=== PATIENT | male | born 1955 | race Two or more races ===

== ENCOUNTER 2022-07-17 07:16 | Day surgery (SDC) | payer OTHER ==
[~2022-07-17] VITALS: Ht 175.3 cm; Wt 108.4 kg
[~2022-07-17 07:16] MED LIST: LISI2.5T47 PO
[2022-07-17] MEDS ORDERED: ceFAZolin 1GM/50ML 100 ML IV ONE (07:33)
[2022-07-17] MEDS ORDERED: fentaNYL CITRATE 100 MCG/2 ML VL ONE (07:40)
[2022-07-17] MEDS ORDERED: DexAMETHasone SOD PHOS 10MG/1ML VIAL INJ ONE (07:41)
[2022-07-17] MEDS ORDERED: MIDAZOLAM HCL 2MG/2ML 2ml VIAL (1mg/ml) ONE (07:41)
[2022-07-17] MEDS ORDERED: SODIUM CHLORIDE LOCK 10 ML ONE (07:41)
[2022-07-17] MEDS ORDERED: PROPOFOL 10 MG/ML 20 ML IV ONE (07:41)
[2022-07-17] MEDS ORDERED: MORPHINE SULFATE 4 MG/ML SYR/VIAL IV PRN (07:45)
[2022-07-17] MEDS ORDERED: KETOROLAC TROMETH 30 MG/ML 1ML VIAL IV ONE (07:45)
[2022-07-17] MEDS ORDERED: HYDROmorphone HCL 2 MG/ML VL/or syr IV PRN ×2 (07:45)
[2022-07-17] MEDS ORDERED: METOCLOPRAMIDE HCL 5MG/ml INJ 2ml VIAL IV PRN (07:45)
[2022-07-17] MEDS ORDERED: LIDOCAINE 1% (LOCAL ANESTH.) PF 5ml SDV ONE ×2 (08:08→08:24)
[2022-07-17] MEDS ORDERED: DexAMETHasone SOD PHOS 4 MG/1ML SDV INJ ONE (08:09)
[2022-07-17] MEDS ORDERED: BUPIVACAINE 0.5% P/F INJ 10 ML VIAL ONE (08:09)
[2022-07-17] MEDS ORDERED: LIDOCAINE 4MG/ML IV SOLN 500 ML IV ONE (08:45)
[2022-07-17] MEDS ORDERED: LIDOCAINE 2% (LOCAL ANESTH.) PF 5ml SDV ONE (08:46)
[2022-07-17 10:51] VITALS: BP 132/93
== END 2022-07-17 11:08 | disposition home or self-care (01) ==
LOC: SUR 07:16
PROVIDERS: ATTEND Podiatrist Foot & Ankle Surgery
DX: M20.11 Hallux valgus (acquired), right foot (principal)
CPT/HCPCS: 28750; 73620; 73630; 76000; C1713; J0690; J1100; J1170; J2001; J2250; J2704; J3010; J3490; U0003

== ENCOUNTER 2024-01-01 07:25 | Inpatient (IN) | payer OTHER, MEDICAID ==
[~2024-01-01] VITALS: Ht 175.3 cm; Wt 129.3 kg
[~2024-01-01 07:25] MED LIST changes: +AML5T PO; +ASPI-543 PO; +CYCL-839 PO; +DEXA2TAB PO; +GABA-1250 PO; +HYDR-4902 PO; +IBUP200C3 PO; +LORA-622 PO; +METF-370 PO; +MORP30TA PO; +PRE1T PO; +SULF400T11 PO
[2024-01-01] MEDS ORDERED: D5W/SOD CHLO 0.9% 1,000 ML IV SCH (11:15)
[2024-01-01] MEDS ORDERED: ONDANSETRON HCL 4 MG/2 ML VIAL IV PRN (11:15)
[2024-01-01] MEDS ORDERED: DOCUSATE SOD 100 MG CAP PO PRN (11:15)
[2024-01-01] MEDS ORDERED: NITROGLYCERIN 0.4 MG SL TAB SL PRN (11:15)
[2024-01-01] MEDS ORDERED: MORPHINE SULFATE INJ 2 MG/ml SYRG IV PRN (11:15)
[2024-01-01] MEDS ORDERED: HYDROcodone-ACET 10/325MG TAB PO PRN (11:15)
[2024-01-01] MEDS ORDERED: MILK OF MAGNESIA 30ML SUSP PO PRN (11:15)
[2024-01-01] MEDS ORDERED: ACETAMINOPHEN 325 MG TAB PO PRN (11:15)
[2024-01-01] MEDS ORDERED: ceFAZolin 2 GM/D5W50ml 50 ML IV ONE (12:00)
[2024-01-01] MEDS ORDERED: KETAMINE 50mg/ML 1ml syringe ONE (15:05)
[2024-01-01] MEDS ORDERED: ONDANSETRON HCL 4 MG/2 ML VIAL ONE (15:06)
[2024-01-01] MEDS ORDERED: ROCURONIUM 10MG/ML 10ML VIAL IV ONE (15:06)
[2024-01-01] MEDS ORDERED: LIDOCAINE HCL 2% TOP JELLY 5ML TOP ONE (15:06)
[2024-01-01] MEDS ORDERED: LIDOCAINE 1% INJ PF 5ML AMP ONE (15:06)
[2024-01-01] MEDS ORDERED: MIDAZOLAM HCL 2MG/2ML 2ml VIAL (1mg/ml) ONE (15:06)
[2024-01-01] MEDS ORDERED: MEPERIDINE HCL (50 MG/ML) 1 ML VIAL ONE (15:06)
[2024-01-01] MEDS ORDERED: PROPOFOL 10 MG/ML 20 ML IV ONE (15:06)
[2024-01-01] MEDS ORDERED: fentaNYL CITRATE 100 MCG/2 ML VL ONE (15:06)
[2024-01-01] MEDS ORDERED: HYDROmorphone HCL 2 MG/ML VL/or syr IV PRN ×2 (15:30)
[2024-01-01] MEDS ORDERED: MORPHINE SULFATE 4 MG/ML SYR/VIAL IV PRN (15:30)
[2024-01-01] MEDS ORDERED: METOCLOPRAMIDE HCL 5MG/ml INJ 2ml VIAL IV ONE (15:30)
[2024-01-01] MEDS: IOHEXOL 300 MG/ML 100ML BOTTLE IJ ONE (17:11)
[2024-01-01 17:39] VITALS: PULSE 67; RESP 11; TEMP 97.9; O2SAT 100
[2024-01-01 17:55] VITALS: PULSE 77; RESP 13; O2SAT 98
[2024-01-01] MEDS: KETOROLAC TROMETH 30 MG/ML 1ML VIAL IV ONE (18:15)
[2024-01-01 18:25] VITALS: BP 131/92; PULSE 77; RESP 15; O2SAT 95
[2024-01-01] MEDS ORDERED: DOCUSATE SOD 100 MG CAP PO SCH (22:00)
== END 2024-01-01 21:00 | disposition home or self-care (01) | DRG 517 ==
LOC: SUR 07:25 → OVERFLOW 11:14
PROVIDERS: ADMIT Orthopaedic Surgery; ATTEND Orthopaedic Surgery
PROC: 0QU03JZ Supplement Lumbar Vertebra with Synthetic Substitute, Percutaneous Approach (ICD-10-PCS; 2024-01-01)
PROC: 0QS03ZZ Reposition Lumbar Vertebra, Percutaneous Approach (ICD-10-PCS; principal; 2024-01-01 16:13)
DX: M48.56XA Collapsed vertebra, not elsewhere classified, lumbar region, initial encounter for fracture (principal)
CPT/HCPCS: 72100; 76000; 86850; 86900; 86901; G0378; J1885; J2250; J2405; J2704

== ENCOUNTER 2024-10-03 12:45 | Inpatient (IN) | payer OTHER, MEDICAID ==
[~2024-10-03] VITALS: Ht 175.3 cm; Wt 121.0 kg
--- NOTE | 2024-10-03 13:18 | ED.PDOC ---
History of Present Illness HPI Comments 69M presents to the ER in a wheelchair and w/ prior Hx of Mult. Myeloma, recent Spine Sx which all may be associated to the c/c of SOB. Pt reports on having SOB for 1 week as well as having back pain from the T12 operation. Pt notes that he is unable to walk. Pt BP in triage was 107/66. PMHx of HTN and Pre-DM. SHx of Brain Sx and ACL repair. Denies chills, fever, N/V/D, CP or other associated symptom's, modifiers, or recent injuries or sick contact at this time. Chief Complaint: Shortness of Breath Time Seen by MD: 13:00 Primary Care Provider: bandar Reviewed Notes: Nurses Notes, Medications, Allergies Allergies: Coded Allergies: NO KNOWN ALLERGIES (Unverified , 07/16/22) Home Meds Reported Medications Prednisone (PREDNISONE) Unknown Strength Tb, PO DAILY, #360 TAB 3 Refills 12/30/23 Morphine Sulfate (Morphine Sulfate) Unknown Strength Tab, PO, TAB 12/30/23 Metformin Hydrochloride (Metformin Hcl) Unknown Strength Tab, PO IBID for 30 Days, MG 12/30/23 Ibuprofen (Ibuprofen) Unknown Strength Cap, PO, MG 12/30/23 Hydrocodone-Acetaminophen (Hydrocodone Bitartrate/AC 5-325 mg) Unknown Strength Tab, PO, TAB 12/30/23 Gabapentin (Gabapentin) Unknown Strength Cap, PO for 30 Days, MG 12/30/23 Dexamethasone (Dexamethasone) Unknown Strength Tab, PO, MG 12/30/23 Cyclobenzaprine Hcl (Cyclobenzaprine Hcl) Unknown Strength Tab, PO Q8HP for 30 Days, MG 12/30/23 Loratadine (Claritin) Unknown Strength Tab, PO DAILY, #30 TAB 5 Refills 12/30/23 Aspirin (Aspir-Low) 81 Mg Tab, 81 MG PO DAILY for 30 Days, MG 12/30/23 Sulfamethoxazole-Trimethoprim (Bactrim) 1 Tab Tab, 1 TAB PO DAILY, MG 12/30/23 Amlodipine Besylate (NORVASC TABLET) Unknown Strength Tb, PO DAILY, #30 TAB 5 Refills 12/30/23 Lisinopril (Lisinopril) 2.5 Mg Tab, 2.5 MG PO DAILY, TAB 07/16/22 Information Source: Patient Mode of Arrival: Wheelchair Severity: Moderate Timing: Days Duration: Since onset, Days Prehospital treatment: None Past Medical History PAST MEDICAL HISTORY: HTN Past Medical History (Other): Mult. Myeloma, pre-DM Surgical History (Other): Brain Sx, L-spine Sx and ACL repair Family History Family History: Reviewed,noncontributory to illness, Unknown Social History Smoker: Non-Smoker Alcohol: Denies ETOH Use Drugs: Denies Drug Use Lives In: Home Constitutional: denies: chills, diaphoresis, fatigue, fever, malaise, sweats, weakness, others EENTM: denies: blurred vision, double vision, ear bleeding, ear discharge, ear drainage, ear pain, ear ringing, eye pain, eye redness, hearing loss, mouth pain, mouth swelling, nasal discharge, nose bleeding, nose congestion, nose pain, photophobia, tearing, throat pain, throat swelling, voice changes, others Respiratory: reports: shortness of breath; denies: cough, hemoptysis, orthopnea, SOB at rest, SOB with excertion, stridor, wheezing, others Cardiovascular: denies: chest pain, dizzy spells, diaphoresis, Dyspnea on exertion, edema, irregular heart beat, left arm pain, lightheadedness, palpitations, PND, syncope, others Gastrointestinal: denies: abdomen distended, abdominal pain, blood streaked bowels, constipated, diarrhea, dysphagia, difficulty swallowing, hematemesis, melena, nausea, poor appetite, poor fluid intake, rectal bleeding, rectal pain, vomiting, others Genitourinary: denies: burning, dysuria, flank pain, frequency, hematuria, incontinence, penile discharge, penile sore, pain, testicle pain, testicle swelling, urgency, others Neurological: denies: dizziness, fainting, headache, left sided numbness, left sided weakness, numbness, paresthesia, pre-existing deficit, right sided numbness, right sided weakness, seizure, speech problems, tingling, tremors, we akness, others Musculoskeletal: reports: back pain; denies: gout, joint pain, joint swelling, muscle pain, muscle stiffness, neck pain, others Integumetry: denies: bruises, change in color, change in hair/nails, dryness, laceration, lesions, lumps, rash, wounds, others Allergic/Immunocompromised: denies: Difficulty Healing, Frequent Infections, Hives, Itching, others Hematologic/Lymphatic: denies: anemia, blood clots, easy bleeding, easy bruising, swollen glands, others Endocrine: denies: excessive hunger, excessive sweating, excessive thirst, excessive urination, flushing, intolerance to cold, intolerance to heat, unexplained weight gain, unexplained weight loss, others Psychiatric: denies: anxiety, bipolar disorder, depression, hopeless, panic disorder, schizophrenia, sleepless, suicidal, others All Other Systems: Reviewed and Negative Physical Exam General Appearance: Moderate Distress, Normal HEENT: Normal ENT Inspection, Pharynx Normal, TMs Normal Neck: Full Range of Motion, Non-Tender, Normal, Normal Inspection Respiratory: Chest Non-Tender, Lungs Clear, No Accessory Muscle Use, No Respiratory Distress, Normal Breath Sounds Cardiovascular: No Edema, No JVD, No Murmur, No Gallop, Normal Peripheral Pulses, Regular Rate/Rhythm Breast Exam: Deferred Gastrointestinal: No Organomegaly, Non Tender, No Pulsatile Mass, Normal Bowel Sounds, Soft Genitalia: Deferred Pelvic: Deferred Rectal: Deferred Extremities: No calf tenderness, Normal capillary refill, Normal range of motion, Non-tender, No pedal edema Musculoskeletal : Apperance: Normal Neurologic: Alert Cerebellar Function: NOT DONE Reflexes: NOT DONE Skin: Dry, Normal Color, Warm Peripheral Pulses: 3+ Radial (R), 3+ Radial (L) Lymphatic: No Adenopathy Was a procedure done? Was a procedure done?: No Differential Dx Considerations may include: Multiple myeloma Electrolyte imbalance X-Ray, Labs, Meds, VS Vital Signs Date Time Temp Pulse Resp B/P (MAP) Pulse Ox O2 Delivery O2 Flow Rate FiO2 10/03/24 13:00 19 95 Room Air* 0 21 10/03/24 12:56 97.0 68 19 107/66 (80) 95 Patient alert. Unable to ambulate. Has a history of multiple myeloma. Vitals stable. Patient states that he can not take care himself. Recent fracture. He is wearing a brace. Unable to put weight on his extremities. Will need placement. Explained to the patient. Continue cardiac monitoring. Time of 1ST Reevaluation: 13:30 Reevaluation 1ST: Unchanged Patient Education/Counseling: Diagnosis, Treatment, Prognosis Family Education/Counseling: No Family Present Departure 1 Departure Time of Disposition: 13:31 Impression: Primary Impression: Multiple myeloma Qualified Codes: C90.00 - Multiple myeloma not having achieved remission Disposition: ADMITTED INPATIENT Admit to: Med Surg Condition: Guarded Critical Care Note Critical Care Time?: No Stability Stability form required: No Heart Score Heart Score: Heart Score Response (Comments) Value History N/A 0 EKG N/A 0 Age N/A 0 Risk Factors N/A 0 Troponin N/A 0 Total 0 I personally scribed for MELLISSA GUNN MD ([email or web address]) on 10/03/24 at 13:18. Electronically submitted by Luis Eduardo Velazquez ([email or web address]). MELLISSA GUNN MD Oct 03, 2024 13:18
[2024-10-03 13:52] LABS: Hematocrit 40.1 % (41.0-53.0); Hemoglobin 13.4 g/dL (13.5-17.5); Mean Corpuscular Hemoglobin 33.1 pg (28.0-32.0); Mean Corpuscular Hgb Conc. 33.5 g/dL (32.0-36.0); Mean Corpuscular Volume 98.9 fL (80.0-100.0); Platelet Count (auto) 132 10^3/uL (140-450); Red Blood Cells 4.06 10^6/uL (4.5-5.90); Red Cell Distribution Width 16.1 % (11.8-14.3); White Blood Cell 7.1 10^3/uL (4.4-10.8)
[2024-10-03 13:54] LABS: Potassium 4.1 mmol/L (3.5-5.1)
[2024-10-03 13:55] LABS: Anion Gap 7 (5-15); Carbon Dioxide 28 mmol/L (20-31)
[2024-10-03 13:56] LABS: Basophils % (manual) 0 (0.0-2.0); Blast Cells 0; Calcium 8.9 mg/dL (8.7-10.4); Metamyelocytes % 0; Myelocytes % 0; Promyelocytes % 0; Reactive Lymphocytes 0
[2024-10-03 14:01] LABS: BUN/Creatinine Ratio 28.1 (10.0-20.0); Blood Urea Nitrogen 18 mg/dL (9-23)
[2024-10-03 14:03] LABS: Chloride 95 mmol/L (98-107); Glucose 130 mg/dL (74-106); Sodium 130 mmol/L (136-145)
[2024-10-03 14:56] LABS: Band Neutrophils % (manual) 8; Eosinophils % (manual) 5 (0-7); Lymphocytes % (manual) 8 (10.0-50.0); Monocytes % (manual) 6 (0-12); Platelet Estimate Decreased
[2024-10-03 21:08] LABS: Hemoglobin 14.1 g/dL (13.5-17.5); White Blood Cell 8.3 10^3/uL (4.4-10.8)
--- NOTE | 2024-10-03 21:12 | DVH ---
CHEST RADIOGRAPH Indication: disable Technique: Single frontal view of the chest was obtained Comparison: None FINDINGS: Lines and Tubes: None Lungs: Patchy opacities of the right hemithorax and left lower lung zone. Which appear to be projecte d over the costochondral junction may represent costochondral calcification Pleura: No effusion. No pneumothorax. Cardiomediastinal contours: Unremarkable Bones: No acute osseous abnormality. IMPRESSION: No evidence of acute cardiopulmonary disease.
--- NOTE | 2024-10-03 21:17 | DVH ---
EXAM: CT LS SPINE WO CONTRAST HISTORY: failed back syn COMPARISON: None CTDIvol 36.46 mGy, DLP 2572.36 mGy*cm. TECHNIQUE: Multiple axial CT images of the spine were obtained using bone algorithm. Axial and coron al reformatting was done. Bone and soft tissue windows were reviewed. FINDINGS: Bones appear osteoporotic. S/p kypoplasty of prior compression fractures of the L2, L3, and L5 verteb ral bodies. There is an age-indeterminate compression fracture of the T12 vertebral body with severe loss of vertebral body height centrally and up to 9 mm retropulsion of the posterior cortex. This res ults in severe spinal canal stenosis at the T12 level with presumed compression of the thecal sac/low er thoracic spinal cord/conus. Mild lumbar spondylosis with mild spinal canal narrowing at L4-L5. IMPRESSION: Bones appear osteoporotic. S/p kypoplasty of prior compression fractures of the L2, L3, and L5 verteb ral bodies. Age-indeterminate compression fracture of T12 vertebral body with severe loss of vertebral body heigh t centrally and up to 9 mm retropulsion of the posterior cortex. This results in severe spinal canal stenosis at the T12 level with presumed compression of the thecal sac/lower thoracic spinal cord/conu s. This can be further evaluate with MRI as clinically indicated.
--- NOTE | 2024-10-03 21:21 | DVH ---
EXAM: CT THORACIC SPINE WO CONTRAS HISTORY: failed surgery COMPARISON: None CTDIvol mGy, DLP mGy*cm. TECHNIQUE: Multiple axial CT images of the spine were obtained using bone algorithm. Axial and coron al reformatting was done. Bone and soft tissue windows were reviewed. FINDINGS: Bones appear osteoporotic. There is an age-indeterminate compression fracture of the T12 vertebral garth dy with severe loss of vertebral body height centrally and up to 9 mm retropulsion of the posterior c ortex. This results in severe spinal canal stenosis at the T12 level with presumed compression of the thecal sac/lower thoracic spinal cord/conus. The remainder of the levels in the thoracic spine demonstrate no spinal canal or neural foraminal yenni nosis. Old/healed posterior rib fractures noted. IMPRESSION: 1. Bones appear osteoporotic. Age-indeterminate compression fracture of T12 vertebral body with sever e loss of vertebral body height centrally and up to 9 mm retropulsion of the posterior cortex. This r esults in severe spinal canal stenosis at the T12 level with presumed compression of the thecal sac/l ower thoracic spinal cord/conus. This can be further evaluated with MRI as clinically indicated.
[2024-10-03 21:23] LABS: Mean Corpuscular Hemoglobin 33.2 pg (28.0-32.0); Mean Corpuscular Hgb Conc. 33.6 g/dL (32.0-36.0); Mean Corpuscular Volume 98.9 fL (80.0-100.0); Platelet Count (auto) 143 10^3/uL (140-450); Red Blood Cells 4.25 10^6/uL (4.5-5.90); Red Cell Distribution Width 16.8 % (11.8-14.3)
[2024-10-03 21:24] LABS: Albumin 4.1 g/dL (3.2-4.8); Anion Gap 8 (5-15); BUN/Creatinine Ratio 23.4 (10.0-20.0); Bilirubin, Total 0.7 mg/dL (0.2-1.0); Blood Urea Nitrogen 18 mg/dL (9-23); Carbon Dioxide 27 mmol/L (20-31); Potassium 4.2 mmol/L (3.5-5.1); Total Protein 5.7 g/dL (5.7-8.2)
[2024-10-03 21:25] LABS: Alanine Aminotransferase 129 U/L (7-40); Alkaline Phosphatase 167 U/L (46-116); Aspartate Aminotransferase 42 U/L (13-40); Chloride 95 mmol/L (98-107); Glucose 157 mg/dL (74-106); Sodium 130 mmol/L (136-145)
[2024-10-03 21:28] LABS: Basophils % (manual) 0 (0.0-2.0); Blast Cells 0; Metamyelocytes % 0; Myelocytes % 0; Promyelocytes % 0
[2024-10-03 21:57] LABS: Band Neutrophils % (manual) 12; Eosinophils % (manual) 3 (0-7); Lymphocytes % (manual) 8 (10.0-50.0); Monocytes % (manual) 9 (0-12); Reactive Lymphocytes 1
[2024-10-03 21:58] LABS: Large Platelets FEW; Platelet Estimate Adequate
[2024-10-04 01:33] VITALS: PULSE 101; RESP 25; O2SAT 98
[2024-10-04 04:15] LABS: Urine Bacteria None Seen /hpf (None Seen)
[2024-10-04 04:58] LABS: Urine Blood Negative /uL (Negative); Urine Clarity Clear (Clear); Urine Color Yellow (Yellow); Urine Protein, UAD Negative (Negative); Urine Specific Gravity 1.025 (1.001-1.035); Urine Squamous Epithelial Cell None Seen /hpf (<5); Urine Urobilinogen Normal (Negative); Urine WBC 1 /HPF (0-3); Urine pH 5.5 (5.0-9.0)
--- NOTE | 2024-10-04 06:12 | ECG ---
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
[2024-10-04] MEDS ORDERED: ONDANSETRON HCL 4 MG/2 ML VIAL IV PRN (07:15)
[2024-10-04] MEDS ORDERED: HYDROcodone-ACET 5/325MG TAB PO PRN (07:15)
[2024-10-04] MEDS ORDERED: DOCUSATE SOD 100 MG CAP PO PRN (07:15)
[2024-10-04] MEDS ORDERED: MORPHINE SULFATE INJ 2 MG/ml SYRG IV PRN (07:15)
[2024-10-04] MEDS: SODIUM CHLORIDE 0.9% 1,000 ML IV SCH (07:15)
[2024-10-04] MEDS ORDERED: ACETAMINOPHEN 325 MG TAB PO PRN (07:15)
[2024-10-04] MEDS ORDERED: NITROGLYCERIN 0.4 MG SL TAB SL PRN (07:15)
[2024-10-04 08:00] VITALS: PULSE 95; RESP 18; O2SAT 94
[2024-10-04] MEDS: ZINC SULFATE 220mg CAP or TAB PO SCH (10:57)
[2024-10-04] MEDS: ASCORBIC ACID 500 MG TAB PO SCH (10:57)
[2024-10-04] MEDS: ENOXAPARIN SOD 30 MG/0.3 ML SYRINGE SC SCH (10:58)
--- NOTE | 2024-10-04 12:32 | DVHHP2 ---
History of Present Illness Reason for Visit: Shortness of breadth 10 low back pain. History of Present Illness 69-year-old male with a known history of hypertension, prediabetes mellitus, history of brain hematoma surgery in the past, multiple myeloma currently on injury chemotherapy once a week, previous history of L2-3 five lumbar, patient fracture status post kyphoplasty presented to the hospital with low back pain associated with shortness of breath. Patient was tolerated having back pain for the last few days. Patient was stated that he has numbness in the lower extremi ties. Patient was also complaining of weakness in the bilateral lower extremities. 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 Bilateral bunionectomy,Intracranial hematoma status post drainage) Family History: None Smoke: No ALCOHOL: none Drugs: None Review of Systems Review of Systems Twelve review of system were negative except mentioned above. Allergies: Coded Allergies: NO KNOWN ALLERGIES (Unverified , 07/16/22) Medications Current Medications Medications Dose Ordered Sig/Jonathan Route Start Time Stop Time Status Last Admin Dose Admin Sodium Chloride 1,000 ml @ 60 mls/hr [id number] IV 10/04/24 07:15 10/04/24 07:15 60 MLS/HR Acetaminophen 325 mg Q4HP PRN PO 10/04/24 07:15 Acetaminophen/ Hydrocodone Bitart 1 tab Q4HP PRN PO 10/04/24 07:15 Temazepam 15 mg QHSP PRN PO 10/04/24 07:15 Ondansetron HCl 4 mg Q4HP PRN IV 10/04/24 07:15 Docusate Sodium 100 mg BIDPRN PRN PO 10/04/24 07:15 Zinc Sulfate 220 mg DAILY PO 10/04/24 10:00 10/04/24 10:57 220 MG Ascorbic Acid 500 mg BID PO 10/04/24 10:00 10/04/24 10:57 500 MG Enoxaparin Sodium 30 mg DAILY SC 10/04/24 10:00 10/04/24 10:58 30 MG Nitroglycerin 0.4 mg Q5MINP PRN SL 10/04/24 07:15 Morphine Sulfate 2 mg Q30M PRN IV 10/04/24 07:15 Exam Vital Signs Vital Signs Date Time Temp Pulse Resp B/P (MAP) Pulse Ox O2 Delivery O2 Flow Rate FiO2 10/04/24 08:00 98.3 92 18 101/65 (77) 94 98.3 10/04/24 01:33 Nasal Cannula* 2 28 Exam HEENT pupils are reactive Neck is supple CV is S1-S2 regular rate and rhythm Respiratory viral clear GI posterior bowel sound Extremity no edema [employer]ER bilateral lower extremity weakness Labs/Xrays Labs Test 10/04/24 02:39 10/03/24 21:50 10/03/24 20:55 Range/Units Urine Color Yellow Yellow Urine Clarity Clear Clear Urine pH 5.5 5.0-9.0 Urine Specific [place] 1.025 1.001-1.035 Urine Protein Negative Negative Urine Ketones Negative Negative Urine Blood Negative Negative /uL Urine Nitrite Negative Negative Urine Bilirubin Negative Negative Urine Urobilinogen Normal Negative mg/dL Urine Leukocyte Esterase Negative Negative /uL Urine RBC <1 0 - 3 /hpf Urine Microscopic WBC 1 0-3 /HPF Urine Squamous Epithelial Cells None seen <5 /hpf Urine Bacteria None seen None Seen /hpf Urine Glucose Normal Normal mg/dL Troponin I High Sensitivity < 3 L </=54 ng/L White Blood Count 8.3 4.4-10.8 10^3/uL Red Blood Count 4.25 L 4.5-5.90 10^6/uL Hemoglobin 14.1 13.5-17.5 g/dL Hematocrit 42.0 41.0-53.0 % Mean Corpuscular Volume 98.9 80.0-100.0 fL Mean Corpuscular Hemoglobin 33.2 H 28.0-32.0 pg Mean Corpuscular Hemoglobin Concent 33.6 32.0-36.0 g/dL Red Cell Distribution Width 16.8 H 11.8-14.3 % Platelet Count 143 140-450 10^3/uL Mean Platelet Volume 8.9 6.9-10.8 fL Neutrophils (%) (Auto) 37.0-80.0 % Lymphocytes (%) (Auto) 10.0-50.0 % Monocytes (%) (Auto) 0.0-12.0 % Basophils (%) (Auto) 0.0-2.0 % Neutrophils # (Auto) 1.6-8.6 10 ^3/uL Lymphocytes # (Auto) 0.4-5.4 10 ^3/uL Monocytes # (Auto) 0-1.3 10 ^3/uL Differential Total Cells Counted 100.0 100 Neutrophils % (Manual) 67 37.0-80.0 Band Neutrophils % (Manual) 12 Lymphocytes % (Manual) 8 L 10.0-50.0 Monocytes % (Manual) 9 0-12 Eosinophils % (Manual) 3 0-7 Basophils % (Manual) 0 0.0-2.0 Metamyelocytes % (manual) 0 Myelocytes % (Manual) 0 Promyelocytes % (Manual) 0 Blast Cells % (Manual) 0 Reactive Lymphocytes 1 Platelet Estimate Adequate Large Platelets Few Sodium Level 130 L 136-145 mmol/L Potassium Level 4.2 3.5-5.1 mmol/L Chloride Level 95 L 98-107 mmol/L Carbon Dioxide Level 27 20-31 mmol/L Anion Gap 8 5-15 Blood Urea Nitrogen 18 9-23 mg/dL Creatinine 0.77 0.700-1.30 mg/dL Glomerular Filtration Rate Calc 98 >90 mL/min BUN/Creatinine Ratio 23.4 H 10.0-20.0 Serum Glucose 157 H 74-106 mg/dL Calcium Level 9.0 8.7-10.4 mg/dL Total Bilirubin 0.7 0.2-1.0 mg/dL Aspartate Amino Transferase (AST) 42 H 13-40 U/L Alanine Aminotransferase (ALT) 129 H 7-40 U/L Alkaline Phosphatase 167 H 46-116 U/L Total Protein 5.7 5.7-8.2 g/dL Albumin 4.1 3.2-4.8 g/dL Assessment/Plan Assessment/Plan 69-year-old male with a known history of hypertension, pre diabetes mellitus type 2, history of intracranial/subdural hematoma status post drainage in the past, multiple myeloma currently on chemotherapy, previous history of lumbar spine kyphoplasty at L2-3 five last year presented to the hospital with a bilat eral lower extremity weakness found to have 1. Bilateral lower extremity weakness suspect lumbar radiculopathy/myelopathy 2. Previous history of L2-3 five kyphoplasty 3. Hypotension 4. Diabetes mellitus type 2 5. Multiple myeloma currently on chemotherapy -admit to med surge, 2D echo cardiology clearance, spine surgery has been consulted by ER physician, recommending spine surgery intervention. Plan of care discussed with the patient was who understand, verbalized understanding and agreeable to plan. Plan discussed with: Patient My Orders Orders - GIOVANNI BURKS MD Procedure Category Date Status Time Admit ADMIT 10/04/24 Verified 12:17 Date of Service: Oct 04, 2024 Billing Provider: GIOVANNI BURKS MD Common Visit Codes: NOT BILLABLE GIOVANNI BURKS MD Oct 04, 2024 12:31
--- NOTE | 2024-10-04 17:52 | DVHSR ---
APPROVED REPORT EXAM: Two-dimensional and M-mode echocardiogram with Doppler and color Doppler. Blood Pressure: 92/54 mmHg INDICATION Preop clearance for lumbar spine surgery RISK FACTORS Obesity: Height: 5'9", Weight: 272 DIMENSIONS LVDd4.9 (3.8-5.7cm)LA (2D)4.1 (1.9-4.0cm)Aortic Root3.9 (2.0-3.7cm) LVDs3.3 (2.5-4.0cm)LA (MM) (1.9-4.0cm)Aortic Cusp Exc2.1 (1.5-2.0cm) EF (%) 60.0 (55-70%)Rt. Atrium4.0 (1.9-4.0cm)Asc. Aorta cm IVSd1.4 (0.7-1.1cm)RV (D) (1.8-2.4cm) PWd1.3 (0.7-1.1cm) Mitral Valve MitralMitral Stenosis E wave0.74m/sMV Mean GR.mmHg A wave0.89m/sMV Peak GR.mmHg E/A ratio0.82D MVAcm2 DECEL [id number] 1/2 Timems Aortic Valve Aortic ValveAortic Stenosis V11.24m/Nichelle Mean GR.7mmHg V21.97m/Nichelle Peak GR.16mmHg LVOT Diameter2.3 (1.8-2.4cm)Doppler AVA2.61cm2 Pulmonic Valve V21.35m/s Other Information Technically limited study due to body habitus. Conclusion lvef 60% by visual estimate moderate RV enlarged, normal function normal atria no severe valve abnormaliteis noted
[2024-10-04] MEDS: SULFAMETHOX W/TRIMETH(800/160MG) DS TAB PO SCH (18:00)
[2024-10-04 19:30] VITALS: PULSE 93; RESP 15; O2SAT 92
[2024-10-04] MEDS: TEMAZEPAM 15 MG CAP PO PRN (21:10)
[2024-10-05] VITALS (10 sets, daily range): BP systolic 112–136; BP diastolic 63–74; PULSE 75–109; RESP 9–18; TEMP 97.6–98.2; O2SAT 54–99
--- NOTE | 2024-10-05 08:22 | DVHINCON2 ---
Consultation - Spinal Surgery Date Seen: Oct 05, 2024 History of Present Illness History of Present Illness THis is a pleasant but unfortunate patient that I have been taking care of. he has a history of multiple myeloma that I performed a multi level kyphoplasties last year which greatly improved his function and pain. Over that time, he sustained another fracture ; this time at the thoracic 12 level . The retropulsion of the vertebral body has resultedin severe canal stenosis and cord signal changes consistent with spinal cord damage and myelopathy in addition to pain, he is having severe balance trouble and has a very unsteady gait. I started the process to get him set up for surgery but the pain and balance trouble was so severe that he was unable to tolerate the suffering and was [facility] The progressive weakness/neurologic deficit is concerning to the point that having to perform surgery is important. Allergies and medications Allergies: Coded Allergies: NO KNOWN ALLERGIES (Unverified , 07/16/22) Home Meds Reported Medications Prednisone (PREDNISONE) Unknown Strength Tb, PO DAILY, #360 TAB 3 Refills 12/30/23 Morphine Sulfate (Morphine Sulfate) Unknown Strength Tab, PO, TAB 12/30/23 Metformin Hydrochloride (Metformin Hcl) Unknown Strength Tab, PO IBID for 30 Days, MG 12/30/23 Ibuprofen (Ibuprofen) Unknown Strength Cap, PO, MG 12/30/23 Hydrocodone-Acetaminophen (Hydrocodone Bitartrate/AC 5-325 mg) Unknown Strength Tab, PO, TAB 12/30/23 Gabapentin (Gabapentin) Unknown Strength Cap, PO for 30 Days, MG 12/30/23 Dexamethasone (Dexamethasone) Unknown Strength Tab, PO, MG 12/30/23 Cyclobenzaprine Hcl (Cyclobenzaprine Hcl) Unknown Strength Tab, PO Q8HP for 30 Days, MG 12/30/23 Loratadine (Claritin) Unknown Strength Tab, PO DAILY, #30 TAB 5 Refills 12/30/23 Aspirin (Aspir-Low) 81 Mg Tab, 81 MG PO DAILY for 30 Days, MG 12/30/23 Sulfamethoxazole-Trimethoprim (Bactrim) 1 Tab Tab, 1 TAB PO DAILY, MG 12/30/23 Amlodipine Besylate (NORVASC TABLET) Unknown Strength Tb, PO DAILY, #30 TAB 5 Refills 12/30/23 Lisinopril (Lisinopril) 2.5 Mg Tab, 2.5 MG PO DAILY, TAB 07/16/22 Review of systems Review of Systems: HEENT:Normal Examination Vital signs Vital Signs Date Time Temp Pulse Resp B/P (MAP) Pulse Ox O2 Delivery O2 Flow Rate FiO2 10/05/24 07:09 92 23 108/67 (81) 92 10/04/24 19:30 98.2 98.2 10/04/24 19:30 Room Air* 0 21 Medications Current Medications Medications (Trade) Dose Ordered Sig/Jonathan Route PRN Reason Start Time Stop Time Status Last Admin Zinc Sulfate 220 mg DAILY PO 10/04/24 10:00 10/04/24 10:57 Ascorbic Acid (Vitamin C Tablet) 500 mg BID PO 10/04/24 10:00 10/04/24 21:10 Enoxaparin Sodium (Lovenox) 30 mg DAILY SC 10/04/24 10:00 10/04/24 10:58 Lisinopril (Zestril Tablet) 2.5 mg DAILY PO 10/05/24 10:00 Trimethoprim/ Sulfamethoxazole (Bactrim Ds Tablet) 0.5 tab MWF PO 10/04/24 18:00 10/04/24 18:00 Laboratory Labs Test 10/04/24 02:39 10/03/24 21:50 10/03/24 20:55 Range/Units Urine Color Yellow Yellow Urine Clarity Clear Clear Urine pH 5.5 5.0-9.0 Urine Specific [place] 1.025 1.001-1.035 Urine Protein Negative Negative Urine Ketones Negative Negative Urine Blood Negative Negative /uL Urine Nitrite Negative Negative Urine Bilirubin Negative Negative Urine Urobilinogen Normal Negative mg/dL Urine Leukocyte Esterase Negative Negative /uL Urine RBC <1 0 - 3 /hpf Urine Microscopic WBC 1 0-3 /HPF Urine Squamous Epithelial Cells None seen <5 /hpf Urine Bacteria None seen None Seen /hpf Urine Glucose Normal Normal mg/dL Troponin I High Sensitivity < 3 L </=54 ng/L White Blood Count 8.3 4.4-10.8 10^3/uL Red Blood Count 4.25 L 4.5-5.90 10^6/uL Hemoglobin 14.1 13.5-17.5 g/dL Hematocrit 42.0 41.0-53.0 % Mean Corpuscular Volume 98.9 80.0-100.0 fL Mean Corpuscular Hemoglobin 33.2 H 28.0-32.0 pg Mean Corpuscular Hemoglobin Concent 33.6 32.0-36.0 g/dL Red Cell Distribution Width 16.8 H 11.8-14.3 % Platelet Count 143 140-450 10^3/uL Mean Platelet Volume 8.9 6.9-10.8 fL Neutrophils (%) (Auto) 37.0-80.0 % Lymphocytes (%) (Auto) 10.0-50.0 % Monocytes (%) (Auto) 0.0-12.0 % Basophils (%) (Auto) 0.0-2.0 % Neutrophils # (Auto) 1.6-8.6 10 ^3/uL Lymphocytes # (Auto) 0.4-5.4 10 ^3/uL Monocytes # (Auto) 0-1.3 10 ^3/uL Differential Total Cells Counted 100.0 100 Neutrophils % (Manual) 67 37.0-80.0 Band Neutrophils % (Manual) 12 Lymphocytes % (Manual) 8 L 10.0-50.0 Monocytes % (Manual) 9 0-12 Eosinophils % (Manual) 3 0-7 Basophils % (Manual) 0 0.0-2.0 Metamyelocytes % (manual) 0 Myelocytes % (Manual) 0 Promyelocytes % (Manual) 0 Blast Cells % (Manual) 0 Reactive Lymphocytes 1 Platelet Estimate Adequate Large Platelets Few Sodium Level 130 L 136-145 mmol/L Potassium Level 4.2 3.5-5.1 mmol/L Chloride Level 95 L 98-107 mmol/L Carbon Dioxide Level 27 20-31 mmol/L Anion Gap 8 5-15 Blood Urea Nitrogen 18 9-23 mg/dL Creatinine 0.77 0.700-1.30 mg/dL Glomerular Filtration Rate Calc 98 >90 mL/min BUN/Creatinine Ratio 23.4 H 10.0-20.0 Serum Glucose 157 H 74-106 mg/dL Calcium Level 9.0 8.7-10.4 mg/dL Total Bilirubin 0.7 0.2-1.0 mg/dL Aspartate Amino Transferase (AST) 42 H 13-40 U/L Alanine Aminotransferase (ALT) 129 H 7-40 U/L Alkaline Phosphatase 167 H 46-116 U/L Total Protein 5.7 5.7-8.2 g/dL Albumin 4.1 3.2-4.8 g/dL Examination: NEURO:Normal (Neuro exam: he is hyperreflexic in the LE: 3+ knee jerk and ankle jerk reflexes bilaterally; 3/5 strength bilateral hipflexion, knee extension, ankle DF and PF and EHL. he has decreaed light touch bilateral LE in a stocking glove distribution. ), Any Other System: (Abnormal:) Problem List/Assessment/Plan Problems: (1) Thoracic myelopathy Assessment and Plan MRI thoracic spine/CGT thoracic/lumbar spine reveals a T12 burst fracture resulting in severe canal compromise with cord signal changes Assessment: burst fracture with thoracic myelopathy I recommended in clinic a thoracic 10 to lumbar 2 posterior spinal decompression and fusion with instrumentation and bone graft. Risks and benefits were reviewed again andhe is anxious to proceed and we will do so once medical clearance obtained. Plan discussed with Plan discussed with: Patient VIANCA MAYS MD Oct 05, 2024 08:22
[2024-10-05] MEDS: LISINOPRIL 5 MG TAB PO SCH (09:52)
[2024-10-05] MEDS ORDERED: ERGO1CAP12 PO (12:38)
[2024-10-05] MEDS ORDERED: ACYC1TAB2 PO (12:38)
[2024-10-05] MEDS ORDERED: fentaNYL CITRATE 5 ML ONE ×2 (13:37→15:18)
[2024-10-05] MEDS ORDERED: KETAMINE 50mg/ML 1ml syringe ONE (13:37)
[2024-10-05] MEDS ORDERED: MEPERIDINE HCL (25 MG/ML) 1ML VIAL ONE (13:37)
[2024-10-05] MEDS ORDERED: MIDAZOLAM HCL 2MG/2ML 2ml VIAL (1mg/ml) ONE (13:37)
[2024-10-05] MEDS ORDERED: ROCURONIUM 10MG/ML 10ML VIAL IV ONE (13:38)
[2024-10-05] MEDS ORDERED: PROPOFOL 10 MG/ML 20 ML IV ONE (13:38)
[2024-10-05] MEDS ORDERED: LIDOCAINE 1% INJ PF 5ML AMP ONE (13:38)
[2024-10-05] MEDS ORDERED: ONDANSETRON HCL 4 MG/2 ML VIAL ONE (13:38)
[2024-10-05] MEDS ORDERED: SODIUM CHLORIDE LOCK 10 ML ONE (13:38)
[2024-10-05] MEDS ORDERED: DexAMETHasone SOD PHOS 10MG/1ML VIAL INJ ONE (13:38)
[2024-10-05] MEDS: TRANEXAMIC ACID 20 ML ONE (13:43)
[2024-10-05] MEDS: ceFAZolin 2 GM/D5W100ml 100 ML IV ONE (13:44)
[2024-10-05] MEDS: CIPROFLOXACIN 400MG/200ML 400 ML IV ONE (13:44)
[2024-10-05] MEDS: ROCURONIUM 10MG/ML 10ML VIAL IV ONE (15:10)
[2024-10-05] MEDS: SUCCINYLCHOLINE CHLORIDE 20 MG/ML 10ML VIAL IV ONE (15:10)
[2024-10-05] MEDS ORDERED: ePHEDrine SULFATE 50 MG/ML AMP ONE (16:29)
--- NOTE | 2024-10-05 16:44 | DVHPN2 ---
Subjective Overnight events noted. Patient was currently scheduled for lumbar spine surgery sometimes today. 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 Medications Current Medications Medications Dose Ordered Sig/Jonathan Route Start Time Stop Time Status Last Admin Dose Admin Sodium Chloride 1,000 ml @ 60 mls/hr [id number] IV 10/04/24 07:15 10/04/24 21:18 60 MLS/HR Acetaminophen 325 mg Q4HP PRN PO 10/04/24 07:15 Acetaminophen/ Hydrocodone Bitart 1 tab Q4HP PRN PO 10/04/24 07:15 Temazepam 15 mg QHSP PRN PO 10/04/24 07:15 10/04/24 21:10 15 MG Ondansetron HCl 4 mg Q4HP PRN IV 10/04/24 07:15 Docusate Sodium 100 mg BIDPRN PRN PO 10/04/24 07:15 Zinc Sulfate 220 mg DAILY PO 10/04/24 10:00 10/04/24 10:57 220 MG Ascorbic Acid 500 mg BID PO 10/04/24 10:00 10/04/24 21:10 500 MG Enoxaparin Sodium 30 mg DAILY SC 10/04/24 10:00 10/04/24 10:58 30 MG Nitroglycerin 0.4 mg Q5MINP PRN SL 10/04/24 07:15 Morphine Sulfate 2 mg Q30M PRN IV 10/04/24 07:15 Lisinopril 2.5 mg DAILY PO 10/05/24 10:00 Trimethoprim/ Sulfamethoxazole 0.5 tab MWF PO 10/04/24 18:00 10/04/24 18:00 0.5 TAB Laboratory Results Laboratory Tests 10/03/24 20:55 Urinalysis Test 10/04/24 02:39 Urine Color Yellow (Yellow) Urine Clarity Clear (Clear) Urine pH 5.5 (5.0-9.0) Urine Specific [place] 1.025 (1.001-1.035) Urine Protein Negative (Negative) Urine Ketones Negative (Negative) Urine Blood Negative /uL (Negative) Urine Nitrite Negative (Negative) Urine Bilirubin Negative (Negative) Urine Urobilinogen Normal mg/dL (Negative) Urine Leukocyte Esterase Negative /uL (Negative) Urine RBC <1 /hpf (0 - 3) Urine Microscopic WBC 1 /HPF (0-3) Urine Squamous Epithelial Cells None seen /hpf (<5) Urine Bacteria None seen /hpf (None Seen) Urine Glucose Normal mg/dL (Normal) Assessment/Plan Assessment/Plan 69-year-old male with a known history of hypertension, pre diabetes mellitus type 2, history of intracranial/subdural hematoma status post drainage in the past, multiple myeloma currently on chemotherapy, previous history of lumbar spine kyphoplasty at L2-3 five last year presented to the hospital with a bilateral lower extremity weakness found to have 1. Bilateral lower extremity weakness suspect lumbar radiculopathy/myelopathy 2. Previous history of L2-3 five kyphoplasty 3. Hypotension 4. Diabetes mellitus type 2 5. Multiple myeloma currently on chemotherapy spine surgery has been consulted , recommending spine surgery intervention. Plan of care discussed with the patient was who understand, verbalized understanding and agreeable to plan. Plan discussed with: Patient Date of Service: Oct 05, 2024 Billing Provider: GIOVANNI BURKS MD Common Visit Codes: NOT BILLABLE GIOVANNI BURKS MD Oct 05, 2024 16:44
[2024-10-05] MEDS ORDERED: HYDROcodone-ACET 10/325MG TAB PO PRN (17:30)
[2024-10-05] MEDS ORDERED: NITROGLYCERIN 0.4 MG SL TAB SL PRN (17:30)
[2024-10-05] MEDS ORDERED: MORPHINE SULFATE INJ 2 MG/ml SYRG IV PRN ×2 (17:30)
[2024-10-05] MEDS ORDERED: ONDANSETRON HCL 4 MG/2 ML VIAL IV PRN (17:30)
--- NOTE | 2024-10-05 17:35 | DVHOP2 ---
Operative Report - 2 Report Details Date: 10/05/24 Preop Diagnosis: Thoracic 12 burst fracture with cord compromise and cord signal changes resulting in thoracic myelopathy Postop Diagnosis: same as pre op Surgeon: Wilner Monteiro MD Epidemiology Internship: Narda callahan NP Anesthesiologist: selin Anesthesia: General Consent: The patient was informed of the risks and benefits of the procedure. These include but are not limited to complications of anesthesia, postoperative infection, incomplete relief of symptoms, recurrence of symptoms, damage to blood vessels, nerves and tendons, deep venous thrombosis, pulmonary embolism and possible need for repeat surgery in the future. Name of Procedure Performed see detailed note Procedure Details Procedure Details: pre op diagnosis 1. thoracic 12 burst fracture with retropulsion into spinal canal resulting in cord compromise/cord signal changes and myelopathy with progressive neurologic deficit Post op diagnosis: `1. same as pre op procedure: 1. lumbar 1 laminectomy with lumbar 1 foraminotomies and facetectomies to decompress spinal canal and L1 nerve roots 2. thoracic 12 laminectomy with thoracic 12 foraminotomies/facetectomies to decompress spinal canal and thoracic 12 nerve roots 3. thoracic 11 laminectomy with thoracic 11 foraminotomies/facetectomies to decompress spinal canal and thoracic 11 nerve roots 4. thoracic 11 to lumbar 1 posterior spinal intertransverse fusion 5. thoracic 11 to lumbar 1 posterior spinal instrumentation with pedicle screws: xtant spine 6. local bone autograft for fusion 7. allograft bone Bacterin to augment fusion 8. demineralized bone matrix to augment fusion Assist: Narda Callahan NP Anesthesia: general Procedure note: Patient was seen in the Pre Anesthesia Care Unit (PACU) and the operative site was initialed by me. All questions were answered to the patients satisfaction and chart reviewed. The patient was taken to the operative room where pre- operative antibiotics were given 30 minutes prior to incision. General anesthesia was induced and neuro-monitoring leads placed. Vela catheter was placed. The patient was turned prone onto the [facility] spinal table. While positioning, I made sure that the belly was free to allow proper expansion of the lungs. The hips were extended and all bony prominences padded. The shoulders were abducted 80 degree and the elbows flexed 100 degrees with no tension on the brachial plexus. I check the foot arterial pulses and they were palpable. The patient was prepped and draped and time out was taken at this time per usual protocol. At this time, the C-arm fluoroscope was brought in and was used to nury the incision borders proximally and distally. I made an incision from the thoracic 11 posterior spinous process to lumbar 1. Bovie electrocautery to the deep fascia and deep fascia to retrract deep back muscles laterally to expose the lumbar 1, thoracic 12 and thoracic 11 laminae and transverse processes. I removed the Lumbar 1, thoracic 12 and 11 posterior spinous processes with a Lexall rongeur and then used Kerison number 3 mm rongeurs to complete the lumbar 1, thoracic 12 and 11 laminectomies and then the foraminotomies and facetectomies at these levels to fully decompress the spinal cord. Using C arm fluoroscopy, at this point I placed bilateral pedicle screw at Thoracic 11 and lumbar 1: 6.5X40mm at thoracic 11 and 6.5X45mm at lumbar 1 Neuromonitoring was done to make sure the screws were in a satisfactory position in addition to c arm visualizaiton. Gelfoam to cover the dura and I de-corticated the transverse process and placed he autograft, allograft and and DBM over the Thoracic 11 to lumbar 1 intertrnasverse interval. Deep hemovac placed. interrupted 0 vicryl to close the deep fascia 2-0 interrupted vicryl to close the SQ tissue and lyly to skin and then sterile dressings. Pt. turned supine, extubaged and taken to recovery in unremarkable condition Condition Stable Disposition Still a Patient WILNER MONTEIRO MD Oct 05, 2024 17:35
--- NOTE | 2024-10-05 18:10 | POSTOP ---
Post-Operative Note Post-Operative Note Preop Diagnosis thoracic 12 burst fracture with retropulsion into spinal canal resulting in cord compromise/cord signal changes and myelopathy with progressive neurologic d eficit Postop Diagnosis: thoracic 12 burst fracture with retropulsion into spinal canal resulting in cord compromise/cord signal changes and myelopathy with progressive neurologic deficit Operation performed procedure: 1. lumbar 1 laminectomy with lumbar 1 foraminotomies and facetectomies to decompress spinal canal and L1 nerve roots 2. thoracic 12 laminectomy with thoracic 12 foraminotomies/facetectomies to decompress spinal canal and thoracic 12 nerve roots 3. thoracic 11 laminectomy with thoracic 11 foraminotomies/facetectomies to decompress spinal canal and thoracic 11 nerve roots 4. thoracic 11 to lumbar 1 posterior spinal intertransverse fusion 5. thoracic 11 to lumbar 1 posterior spinal instrumentation with pedicle screws: xtant spine Specimen None Anesthesia: General Anesthesiologist: Dr. Diaz Blood Loss(fluid mgmt) See anesthesia record Tourniquet Time None Surgeon Dr Shania Monteiro Sybase Developer Narda Gong [employer] Implant 6.5 x 40 x 2 screws 6.5 x 45 x 2 screws 80 mm rods x2 Set screws x4 Complications & Mgmt None Additional Remarks POD # immediate postop note Dx: T12 burst fracture -Disposition: -Pending -Discharge RX: Pending -Follow up appointment: [place] [id number] [facility] [address] Simons [address] [place] [id number] -Pain: - IV pain meds post op day 1, with PO supplementation, goal is to progress weaning off IV medications and control pain with PO only. morphine 2mg q 4 hours (PAIN 7-10) - P.O. analgesics:Tylenol 650MG (PAIN 1-3) [place] 10/325 mg (PAIN 4-6) q4hr prn - Muscle relaxers scheduled administration. This is a beneficial medications for the incisional pain as it is mostly related to muscle spasms. Flexeril 10 mg TID - Cepacol throat lozenges as needed for sore throat -Antibiotics Operative recommendations: -Postoperative dose:-Post operative antibiotics cefazolin 1 g IV piggyback every 8 hours x 48 hours total of 6 doses -DVT PPX: -Hold all chemical DVT/ blood thinners for 14 days postoperatively -use mechanical DVT PPX such as SCD's, ambulation -Activity: -Pending PT evaluation and patients progression -Sit at side of bed for meals -Goal: Ambulate independently and safely (may use assistive devices if needed) -Medical Therapy goals: -Afebrile- Patient may develop a expected post operative fever by day 2-3, this may not be accompanied with a elevation in WBC. if fever develops: Acetaminophen for fever. Albuterol nebulizer Tx every 12 hours for 24 hours to facilitate adequate lung expansion and prevent development of atelectasis. -Euglycemic: bloods sugars under 130mmol/L for optimal healing -Normotensive: Avoid events of hypertension. This helps to keep post operative healing intact and avoids destabilization of beneficial hemostatic coagulation. -Lumbar: -If patient is comfortable encouraged the patient to lay on their side to facilitate wound healing -Drains: -Hemovac drains: These will be to full compression unless otherwise ordered. Please record and document output AND characteristic of fluid present independently EVERY 6 hours more often as needed. if there in no output indicate this by documenting 0ml. If output is greater than 100 ml in one hour of michelle blood call provider. These drains will be removed once the drainage is at a acceptable level (generally less than 100ml in 24 hours) -Angela dressing: This will stay in place and will be removed at the patients follow up visit. Nursing is to assess the seal and power source. The seal should be intact and the power source should have a green flashing light indicating it is functioning well. Batteries can last up to 14 days. If a leak develops the dressing edges can be reinforced with a Tegaderm dressing to reestablish intact seal. The Angela dressing is NOT a wound vac. This does not get changed, it does not need home health management. -Record output independently, drain 1. Is a deep drain and drain 2. Is a superficial drain. Wound drainage is described by type, color, amount, and odor. Drainage can be 1 Serous: Clear and thin, may be present in healing healthy wound. 2 Serosanguineous containing blood may also be present and healthy healing wound 3. Sanguinous primarily blood 4. Purulent this is thick, white, and pus like. It may be indicated to give of a infection and should constitute a call to the provider immediately with the plan that the sample should be cultured. -Vela: discontinued in OR -Dressings Take care not to disrupt the ANGELA dressing seal. If there is a break in the seal it can be trouble shot with a Tegaderm dressing. -Dressing to Hemovac drains may be changed once the drains have been removed by the provider. -Bowel management: -Colace 100mg bid -Diet: -Clear liquid diet and advance as patient tolerates within dietary limitations ( example: diabetic, Cardiac) -Incentive Spirometer: -10 x hour while awake, RN please educate and observe repeat demonstration, have IS at bedside POD #1 -X-rays: - none indicated at this time -Consults: -Physical Therapy evaluation, treatment recommendations, and discharge recommendations Call with questions Jm Gong [facility]- Orthopaedic Spine Surgery nurse practitioner For Dr Aamir Monteiro Patient was examined, chart reviewed, labs evaluated, and diagnostic studies and findings analyzed. Case was discussed with Dr. Wilner Monteiro who formulated the plan of care. This medical document was created using an electronic medical record system with [employer] dictation system. Although this document has been carefully reviewed, there might still be some phonetic and typographical errors. These areas are purely typographical due to imperfections of the software programs, and do not reflect any compromise in the patient's medical care. Date 10/05/24 Time 18:05 NARDA GONG NP Oct 05, 2024 18:10
[2024-10-05] MEDS: ONDANSETRON HCL 4 MG/2 ML VIAL IV ONE (18:15)
[2024-10-05] MEDS ORDERED: MEPERIDINE HCL (25 MG/ML) 1ML VIAL IV PRN (18:15)
[2024-10-05] MEDS: HYDROmorphone HCL 2 MG/ML VL/or syr ONE (18:29)
[2024-10-05] MEDS: ACETAMINOPHEN IV 1000 MG/100ML (10MG/ML) IV PRN (18:30)
[2024-10-05] MEDS: ACETAMINOPHEN IV 100 ML IV ONE (18:30)
[2024-10-05] MEDS: HYDROmorphone HCL 2 MG/ML VL/or syr IV PRN (18:36)
--- NOTE | 2024-10-05 19:07 | DVH ---
C-ARM FLUOROSCOPY: PROCEDURE: t11-l1 spinal decomperssion and fusion FLUOROSCOPY TIME: 28.5 sec DAP: 42 mgy FINDINGS: Spot intraoperative C arm radiographs demonstrating t11-l1 spinal decompression and fusion. IMPRESSION: Please refer to surgical report for detailed findings.
[2024-10-05 19:23] LABS: Albumin 3.9 g/dL (3.2-4.8); Alkaline Phosphatase 88 U/L (46-116); Anion Gap 6 (5-15); BUN/Creatinine Ratio 16.7 (10.0-20.0); Blood Urea Nitrogen 10 mg/dL (9-23); Carbon Dioxide 27 mmol/L (20-31); Chloride 99 mmol/L (98-107); Potassium 3.9 mmol/L (3.5-5.1)
[2024-10-05 19:24] LABS: Bilirubin, Total 0.6 mg/dL (0.2-1.0)
[2024-10-05 19:25] LABS: Alanine Aminotransferase 97 U/L (7-40); Aspartate Aminotransferase 42 U/L (13-40); Calcium 8.5 mg/dL (8.7-10.4); Glucose 121 mg/dL (74-106); Sodium 132 mmol/L (136-145); Total Protein 5.3 g/dL (5.7-8.2)
[2024-10-05 19:29] LABS: INR 0.92 (0.9-1.15); Partial Thromboplastin Time 27.8 SEC (24.5-34.5); Prothrombin Time 9.8 sec (9.3-11.8)
[2024-10-05] MEDS: ALBUTEROL SULF 2.5 MG/0.5ML(0.5%) NEB SOLN NEB ONE (19:58)
[2024-10-05] MEDS: DOCUSATE SOD 100 MG CAP PO SCH (22:19)
[2024-10-05] MEDS: CYCLOBENZAPRINE HCL 10 MG TAB PO SCH (22:19)
[2024-10-05] MEDS: HYDROcodone-ACET 10/325MG TAB PO PRN (22:24)
[2024-10-06] VITALS (8 sets, daily range): BP systolic 110–140; BP diastolic 69–84; PULSE 89–113; RESP 15–18; TEMP 97.4–99.3; O2SAT 92–98
[2024-10-06] MEDS: ceFAZolin 1GM/50ML 50 ML IV SCH (02:08)
[2024-10-06] MEDS: D5W/SOD CHLO 0.9% 1,000 ML IV SCH (03:01)
[2024-10-06] MEDS: MORPHINE SULFATE INJ 2 MG/ml SYRG IV PRN ×2 (08:07→18:52)
[2024-10-06] MEDS ORDERED: MEPERIDINE HCL (25 MG/ML) 1ML VIAL ONE (08:18)
--- NOTE | 2024-10-06 13:38 | DVHPN2 ---
Progress Note - Surgical Date Seen: Oct 06, 2024 Post op day Post op day: 1 Subjective Review of Systems: HEENT:Normal, CVS:Normal, RESPIRATORY:Normal, GI:Normal, :Normal, MSK:Normal, NEURO:Normal Objective Vital signs Vital Sign Date Time Temp Pulse Resp B/P (MAP) Pulse Ox O2 Delivery O2 Flow Rate FiO2 10/06/24 12:30 98.2 105 18 140/79 (99) 97 98.2 10/06/24 08:00 Room Air* 0 21 Total Intake and Output 10/05/24 10/05/24 10/06/24 15:00 23:00 07:00 Intake Total 120 ml 0 ml 1950 ml Output Total 0 ml 975 ml Balance 120 ml 0 ml 975 ml Medications Current Medications Medications Dose Ordered Sig/Jonathan Route Start Time Stop Time Status Last Admin Dose Admin Temazepam 15 mg QHSP PRN PO 10/04/24 07:15 10/06/24 03:00 15 MG Zinc Sulfate 220 mg DAILY PO 10/04/24 10:00 10/06/24 10:14 220 MG Ascorbic Acid 500 mg BID PO 10/04/24 10:00 10/06/24 10:15 500 MG Lisinopril 2.5 mg DAILY PO 10/05/24 10:00 10/06/24 10:15 2.5 MG Trimethoprim/ Sulfamethoxazole 0.5 tab MWF PO 10/04/24 18:00 10/06/24 10:15 0.5 TAB Dextrose/Sodium Chloride 1,000 ml @ 100 mls/hr Q10H IV 10/05/24 17:30 10/06/24 04:13 100 MLS/HR Ondansetron HCl 4 mg Q4HP PRN IV 10/05/24 17:30 Acetaminophen 650 mg Q6HP PRN PO 10/05/24 17:30 Cyclobenzaprine HCl 10 mg TID PO 10/05/24 22:00 10/06/24 05:58 10 MG Docusate Sodium 100 mg BID PO 10/05/24 22:00 10/06/24 10:16 100 MG Cefazolin Sodium 50 ml @ 100 mls/hr Q8H IV 10/05/24 18:00 10/07/24 10:29 10/06/24 10:14 100 MLS/HR Nitroglycerin 0.4 mg Q5MINP PRN SL 10/05/24 17:30 Morphine Sulfate 2 mg Q30M PRN IV 10/05/24 17:30 Acetaminophen/ Hydrocodone Bitart 1 tab Q4HPRN PRN PO 10/05/24 18:00 10/06/24 05:38 1 TAB Morphine Sulfate 2 mg Q4HP PRN IV 10/05/24 18:00 10/06/24 08:07 2 MG Throat Lozenges 1 branden Q2HP PRN MT 10/05/24 18:00 Laboratory Laboratory Tests 10/05/24 18:21 10/03/24 20:55 Test 10/05/24 18:21 Range/Units Serum Glucose 121 H 74-106 mg/dL Examination: GENERAL:Normal, HEENT:Normal, NECK:Normal, LUNGS:Normal, CVS:Normal, ABDOMEN:Normal, MSK:Normal, SKIN:Normal (Angela seal intact, power sourse functioning. 175 mL of sanguineous drainage. will keep drain in until output is lower ), NEURO:Normal (Improvement in preoperative bilateral extremity numbness), :Normal Problem List/Assessment/Plan Problems: (1) Muscle spasm of back (2) Postoperative pain after spinal surgery Assessment and Plan Patient stating his pain is very poorly controlled at this time. Drain output still too High to remove we will reassess tomorrow patient is able to get up and ambulate in his room today with physical therapy, patient states that he felt good while ambulating Patient is progressing to discharge Dx: T12 burst fracture -Disposition: -Pending -Discharge RX: Pending -Follow up appointment: [place] [id number] [facility] [address] [id number] -Pain: - IV pain meds post op day 1, with PO supplementation, goal is to progress weaning off IV medications and control pain with PO only. morphine 3mg q 4 hours (PAIN 7-10) - P.O. analgesics:Tylenol 650MG (PAIN 1-3) [place] 20/325 mg (PAIN 4-6) q4hr prn - Muscle relaxers scheduled administration. This is a beneficial medications for the incisional pain as it is mostly related to muscle spasms. Flexeril 10 mg TID - Cepacol throat lozenges as needed for sore throat -Antibiotics Operative recommendations: -Postoperative dose:-Post operative antibiotics cefazolin 1 g IV piggyback every 8 hours x 48 hours total of 6 doses -DVT PPX: -Hold all chemical DVT/ blood thinners for 14 days postoperatively -use mechanical DVT PPX such as SCD's, ambulation -Activity: -Pending PT evaluation and patients progression -Sit at side of bed for meals -Goal: Ambulate independently and safely (may use assistive devices if needed) -Medical Therapy goals: -Afebrile- Patient may develop a expected post operative fever by day 2-3, this may not be accompanied with a elevation in WBC. if fever develops: Acetaminophen for fever. Albuterol nebulizer Tx every 12 hours for 24 hours to facilitate adequate lung expansion and prevent development of atelectasis. -Euglycemic: bloods sugars under 130mmol/L for optimal healing -Normotensive: Avoid events of hypertension. This helps to keep post operative healing intact and avoids destabilization of beneficial hemostatic coagulation. -Lumbar: -If patient is comfortable encouraged the patient to lay on their side to facilitate wound healing -Drains: -Hemovac drains: These will be to full compression unless otherwise ordered. Please record and document output AND characteristic of fluid present independently EVERY 6 hours more often as needed. if there in no output indicate this by documenting 0ml. If output is greater than 100 ml in one hour of michelle blood call provider. These drains will be removed once the drainage is at a acceptable level (generally less than 100ml in 24 hours) -Angela dressing: This will stay in place and will be removed at the patients follow up visit. Nursing is to assess the seal and power source. The seal should be intact and the power source should have a green flashing light indicating it is functioning well. Batteries can last up to 14 days. If a leak develops the dressing edges can be reinforced with a Tegaderm dressing to reestablish intact seal. The Angela dressing is NOT a wound vac. This does not get changed, it does not need home health management. -Record output independently, drain 1. Is a deep drain and drain 2. Is a superficial drain. Wound drainage is described by type, color, amount, and odor. Drainage can be 1 Serous: Clear and thin, may be present in healing healthy wound. 2 Serosanguineous containing blood may also be present and healthy healing wound 3. Sanguinous primarily blood 4. Purulent this is thick, white, and pus like. It may be indicated to give of a infection and should constitute a call to the provider immediately with the plan that the sample should be cultured. -Vela: discontinued in OR -Dressings Take care not to disrupt the ANGELA dressing seal. If there is a break in the seal it can be trouble shot with a Tegaderm dressing. -Dressing to Hemovac drains may be changed once the drains have been removed by the provider. -Bowel management: -Colace 100mg bid -Diet: -Clear liquid diet and advance as patient tolerates within dietary limitations ( example: diabetic, Cardiac) -Incentive Spirometer: -10 x hour while awake, RN please educate and observe repeat demonstration, have IS at bedside POD #1 -X-rays: - none indicated at this time -Consults: -Physical Therapy evaluation, treatment recommendations, and discharge recommendations Call with questions Jm Callahan [facility]- Orthopaedic Spine Surgery nurse practitioner For Dr Aamir Monteiro Patient was examined, chart reviewed, labs evaluated, and diagnostic studies and findings analyzed. Case was discussed with Dr. Wilner Monteiro who formulated the plan of care. This medical document was created using an electronic medical record system with [employer] dictation system. Although this document has been carefully reviewed, there might still be some phonetic and typographical errors. These areas are purely typographical due to imperfections of the software programs, and do not reflect any compromise in the patient's medical care. My Orders My Orders Orders - ETHAN CALLAHAN NP Procedure Category Date Status Time Hydrocodone-Acet PHA 10/05/24 In Process 10/325mg Tab (R[place] And [place] 18:00 Morphine Sulfate PHA 10/05/24 In Process Injection 18:00 Throat Lozenges PHA 10/05/24 In Process (Cepastat Lozenges) 18:00 Drain To Suction RENETTA 10/05/24 In Process 17:57 Is At Bedside. RENETTA 10/05/24 In Process 17:57 Drain Assessment RENETTA 10/05/24 In Process 17:57 Plan discussed with Plan discussed with: Patient Visit Coding Surgery Date of Service if different f: Oct 06, 2024 Billing Provider: ETHAN CALLAHAN NP Surgery Visit Codes: NOT BILLABLE ETHAN CALLAHAN NP Oct 06, 2024 13:38
--- NOTE | 2024-10-06 16:18 | DVHPN2 ---
Subjective Overnight events noted. Patient is status post T11/T12/L1 spine surgery intervention postop day one. Patient is currently taking few steps with the physical therapy with the assistance of front wheel walker. Reviewed: Care Plan Changes from previous H/P or p: No Changes Objective Vitals Vital Signs Date Time Temp Pulse Resp B/P (MAP) Pulse Ox O2 Delivery O2 Flow Rate FiO2 10/06/24 15:09 105 18 140/79 10/06/24 12:30 98.2 97 98.2 10/06/24 08:00 Room Air* 0 21 Intake/Output Intake and Output 10/06/24 07:00 Intake Total 2070 ml Output Total 975 ml Balance 1095 ml Intake Oral 1900 ml IV Total 170 ml Output Urine Total 800 ml Drainage Total 175 ml Exam HEENT pupils are reactive Neck is supple CV is S1-S2 regular rate and rhythm Respiratory diminished breath sound bases GI posterior bowel sound Extremity no edema BACK SEWER no motor deficit Medications Current Medications Medications Dose Ordered Sig/Jonathan Route Start Time Stop Time Status Last Admin Dose Admin Temazepam 15 mg QHSP PRN PO 10/04/24 07:15 10/06/24 03:00 15 MG Zinc Sulfate 220 mg DAILY PO 10/04/24 10:00 10/06/24 10:14 220 MG Ascorbic Acid 500 mg BID PO 10/04/24 10:00 10/06/24 10:15 500 MG Lisinopril 2.5 mg DAILY PO 10/05/24 10:00 10/06/24 10:15 2.5 MG Trimethoprim/ Sulfamethoxazole 0.5 tab MWF PO 10/04/24 18:00 10/06/24 10:15 0.5 TAB Dextrose/Sodium Chloride 1,000 ml @ 100 mls/hr Q10H IV 10/05/24 17:30 10/06/24 15:08 100 MLS/HR Ondansetron HCl 4 mg Q4HP PRN IV 10/05/24 17:30 Acetaminophen 650 mg Q6HP PRN PO 10/05/24 17:30 Cyclobenzaprine HCl 10 mg TID PO 10/05/24 22:00 10/06/24 15:06 10 MG Docusate Sodium 100 mg BID PO 10/05/24 22:00 10/06/24 10:16 100 MG Cefazolin Sodium 50 ml @ 100 mls/hr Q8H IV 10/05/24 18:00 10/07/24 10:29 10/06/24 10:14 100 MLS/HR Nitroglycerin 0.4 mg Q5MINP PRN SL 10/05/24 17:30 Morphine Sulfate 2 mg Q30M PRN IV 10/05/24 17:30 Acetaminophen/ Hydrocodone Bitart 1 tab Q4HPRN PRN PO 10/05/24 18:00 10/06/24 05:38 1 TAB Morphine Sulfate 2 mg Q4HP PRN IV 10/05/24 18:00 10/06/24 14:14 2 MG Throat Lozenges 1 branden Q2HP PRN MT 10/05/24 18:00 Laboratory Results Laboratory Tests 10/03/24 20:55 10/05/24 18:21 Chemistry Test 10/05/24 18:21 Albumin 3.9 g/dL (3.2-4.8) Calcium Level 8.5 mg/dL (8.7-10.4) L Magnesium Level 2.0 mg/dL (1.6-2.6) Total Protein 5.3 g/dL (5.7-8.2) L Coagulation Test 10/05/24 18:21 Prothrombin Time 9.8 sec (9.3-11.8) Prothrombin Time INR 0.92 (0.9-1.15) Activated Partial Thromboplast Time 27.8 SEC (24.5-34.5) LFT Test 10/05/24 18:21 Alanine Aminotransferase (ALT) 97 U/L (7-40) H Alkaline Phosphatase 88 U/L (46-116) Aspartate Amino Transferase (AST) 42 U/L (13-40) H Total Bilirubin 0.6 mg/dL (0.2-1.0) Urinalysis Test 10/04/24 02:39 Urine Color Yellow (Yellow) Urine Clarity Clear (Clear) Urine pH 5.5 (5.0-9.0) Urine Specific [place] 1.025 (1.001-1.035) Urine Protein Negative (Negative) Urine Ketones Negative (Negative) Urine Blood Negative /uL (Negative) Urine Nitrite Negative (Negative) Urine Bilirubin Negative (Negative) Urine Urobilinogen Normal mg/dL (Negative) Urine Leukocyte Esterase Negative /uL (Negative) Urine RBC <1 /hpf (0 - 3) Urine Microscopic WBC 1 /HPF (0-3) Urine Squamous Epithelial Cells None seen /hpf (<5) Urine Bacteria None seen /hpf (None Seen) Urine Glucose Normal mg/dL (Normal) Assessment/Plan Assessment/Plan 69-year-old male with a known history of hypertension, pre diabetes mellitus type 2, history of intracranial/subdural hematoma status post drainage in the past, multiple myeloma currently on chemotherapy, previous history of lumbar spine kyphoplasty at L2-3 five last year presented to the hospital with a bilateral lower extremity weakness found to have 1. Bilateral lower extremity weakness suspect thoracic/lumbar radiculopathy/myelopathy, status post T11/T12/L1 spine surgery intervention 2. Previous history of L2-3 five kyphoplasty 3. Hypertension 4. Diabetes mellitus type 2 5. Multiple myeloma currently on chemotherapy -continue pain meds as needed, physical therapy evaluation and treatment, follow up spine surgery recommendations. Plan discussed with: Patient Date of Service: Oct 06, 2024 Billing Provider: GIOVANNI BURKS MD Common Visit Codes: NOT BILLABLE GIOVANNI BURKS MD Oct 06, 2024 16:18
[2024-10-06] MEDS: THROAT LOZENGES(CEPASTAT) MT PRN (19:59)
[2024-10-06] MEDS: ACETAMINOPHEN 325 MG TAB PO PRN (22:14)
[2024-10-07] VITALS (10 sets, daily range): BP systolic 111–145; BP diastolic 68–82; PULSE 63–113; RESP 15–20; TEMP 97.8–98.9; O2SAT 92–96
[2024-10-07] MEDS: HYDROcodone-ACET 10/325MG TAB PO PRN (09:34)
--- NOTE | 2024-10-07 12:01 | DVHPN2 ---
Progress Note - Surgical Date Seen: Oct 07, 2024 Post op day Post op day: 2 Subjective Patient reports: No new complaints, Feels better Review of Systems: HEENT:Normal, CVS:Normal, RESPIRATORY:Normal, GI:Normal, :Normal, MSK:Normal, NEURO:Normal Objective Vital signs Vital Sign Date Time Temp Pulse Resp B/P (MAP) Pulse Ox O2 Delivery O2 Flow Rate FiO2 10/07/24 09:31 145/68 10/07/24 09:00 98.9 81 17 93 98.9 10/07/24 08:26 Room Air* 0 21 Total Intake and Output 10/06/24 10/06/24 10/07/24 15:00 23:00 07:00 Intake Total 50 ml 2030 ml 1300 ml Output Total 1370 ml 2250 ml Balance 50 ml 660 ml -950 ml Medications Current Medications Medications Dose Ordered Sig/Jonathan Route Start Time Stop Time Status Last Admin Dose Admin Temazepam 15 mg QHSP PRN PO 10/04/24 07:15 10/06/24 22:13 15 MG Zinc Sulfate 220 mg DAILY PO 10/04/24 10:00 10/07/24 09:30 220 MG Ascorbic Acid 500 mg BID PO 10/04/24 10:00 10/07/24 09:30 500 MG Lisinopril 2.5 mg DAILY PO 10/05/24 10:00 10/07/24 09:31 2.5 MG Trimethoprim/ Sulfamethoxazole 0.5 tab MWF PO 10/04/24 18:00 10/06/24 10:15 0.5 TAB Dextrose/Sodium Chloride 1,000 ml @ 100 mls/hr Q10H IV 10/05/24 17:30 10/06/24 22:18 100 MLS/HR Ondansetron HCl 4 mg Q4HP PRN IV 10/05/24 17:30 Acetaminophen 650 mg Q6HP PRN PO 10/05/24 17:30 10/06/24 22:14 650 MG Cyclobenzaprine HCl 10 mg TID PO 10/05/24 22:00 10/07/24 06:29 10 MG Docusate Sodium 100 mg BID PO 10/05/24 22:00 10/07/24 09:30 100 MG Nitroglycerin 0.4 mg Q5MINP PRN SL 10/05/24 17:30 Morphine Sulfate 2 mg Q30M PRN IV 10/05/24 17:30 Throat Lozenges 1 lili Q2HP PRN MT 10/05/24 18:00 10/06/24 19:59 1 LILI Acetaminophen/ Hydrocodone Bitart 2 tab Q4HPRN PRN PO 10/06/24 16:30 10/07/24 09:34 2 TAB Morphine Sulfate 3 mg Q4HP PRN IV 10/06/24 16:30 10/07/24 04:30 3 MG Laboratory Laboratory Tests 10/05/24 18:21 10/03/24 20:55 Test 10/05/24 18:21 Range/Units Serum Glucose 121 H 74-106 mg/dL Examination: GENERAL:Normal, HEENT:Normal, NECK:Normal, LUNGS:Normal, CVS:Normal, ABDOMEN:Normal, MSK:Normal, SKIN:Normal (120 ml drain output.), NEURO:Normal, :Normal Problem List/Assessment/Plan Problems: (1) Muscle spasm of back (2) Postoperative pain after spinal surgery Assessment and Plan Patient stating his pain is very poorly controlled at this time. Drain output still too high to remove. We will reassess tomorrow patient is able to get up and ambulate in his room today and ot into the hallway with physical therapy, patient states that he felt good while ambulating Patient is progressing to discharge Dx: T12 burst fracture -Disposition: -Pending -Discharge RX: Pending -Follow up appointment: [place] [id number] [facility] [address] [place] [place] [id number] -Pain: - IV pain meds post op day 1, with PO supplementation, goal is to progress weaning off IV medications and control pain with PO only. morphine 3mg q 4 hours (PAIN 7-10) - P.O. analgesics:Tylenol 650MG (PAIN 1-3) Gheens 20/325 mg (PAIN 4-6) q4hr prn - Muscle relaxers scheduled administration. This is a beneficial medications for the incisional pain as it is mostly related to muscle spasms. Flexeril 10 mg TID - Cepacol throat lozenges as needed for sore throat -Antibiotics Operative recommendations: -Postoperative dose:-Post operative antibiotics cefazolin 1 g IV piggyback every 8 hours x 48 hours total of 6 doses -DVT PPX: -Hold all chemical DVT/ blood thinners for 14 days postoperatively -use mechanical DVT PPX such as SCD's, ambulation -Activity: -Pending PT evaluation and patients progression -Sit at side of bed for meals -Goal: Ambulate independently and safely (may use assistive devices if needed) -Medical Therapy goals: -Afebrile- Patient may develop a expected post operative fever by day 2-3, this may not be accompanied with a elevation in WBC. if fever develops: Acetaminophen for fever. Albuterol nebulizer Tx every 12 hours for 24 hours to facilitate adequate lung expansion and prevent development of atelectasis. -Euglycemic: bloods sugars under 130mmol/L for optimal healing -Normotensive: Avoid events of hypertension. This helps to keep post operative healing intact and avoids destabilization of beneficial hemostatic coagulation. -Lumbar: -If patient is comfortable encouraged the patient to lay on their side to facilitate wound healing -Drains: -Hemovac drains: These will be to full compression unless otherwise ordered. Please record and document output AND characteristic of fluid present independently EVERY 6 hours more often as needed. if there in no output indicate this by documenting 0ml. If output is greater than 100 ml in one hour of michelle blood call provider. These drains will be removed once the drainage is at a acceptable level (generally less than 100ml in 24 hours) -Angela dressing: This will stay in place and will be removed at the patients follow up visit. Nursing is to assess the seal and power source. The seal should be intact and the power source should have a green flashing light indicating it is functioning well. Batteries can last up to 14 days. If a leak develops the dressing edges can be reinforced with a Tegaderm dressing to reestablish intact seal. The Angela dressing is NOT a wound vac. This does not get changed, it does not need home health management. -Record output independently, drain 1. Is a deep drain and drain 2. Is a superficial drain. Wound drainage is described by type, color, amount, and odor. Drainage can be 1 Serous: Clear and thin, may be present in healing healthy wound. 2 Serosanguineous containing blood may also be present and healthy healing wound 3. Sanguinous primarily blood 4. Purulent this is thick, white, and pus like. It may be indicated to give of a infection and should constitute a call to the provider immediately with the plan that the sample should be cultured. -Vela: discontinued in OR -Dressings Take care not to disrupt the ANGELA dressing seal. If there is a break in the seal it can be trouble shot with a Tegaderm dressing. -Dressing to Hemovac drains may be changed once the drains have been removed by the provider. -Bowel management: -Colace 100mg bid -Diet: -Clear liquid diet and advance as patient tolerates within dietary limitations ( example: diabetic, Cardiac) -Incentive Spirometer: -10 x hour while awake, RN please educate and observe repeat demonstration, have IS at bedside POD #1 -X-rays: - none indicated at this time -Consults: -Physical Therapy evaluation, treatment recommendations, and discharge recommendations Call with questions Jm Gong [facility]- Orthopaedic Spine Surgery nurse practitioner For Dr Aamir Monteiro Patient was examined, chart reviewed, labs evaluated, and diagnostic studies and findings analyzed. Case was discussed with Dr. Wilner Monteiro who formulated the plan of care. This medical document was created using an electronic medical record system with [employer] dictation system. Although this document has been carefully reviewed, there might still be some phonetic and typographical errors. These areas are purely typographical due to imperfections of the software programs, and do not reflect any compromise in the patient's medical care. My Orders My Orders Orders - ETHAN GONG NP Procedure Category Date Status Time Hydrocodone-Acet PHA 10/06/24 In Process 10/325mg Tab (Gheens 16:30 Morphine Sulfate PHA 10/06/24 In Process Injection 16:30 Convert To Saline RENETTA 10/06/24 In Process Lock When Ta 16:31 Communication Order ORDERS 10/06/24 Transmitted 16:31 Ephedrine Sulfate PHA 10/05/24 In Process (Ephedrine Sulfate) 16:29 Plan discussed with Plan discussed with: Patient, Other Visit Coding Surgery Date of Service if different f: Oct 07, 2024 Billing Provider: ETHAN GONG NP Surgery Visit Codes: NOT BILLABLE ETHAN GONG NP Oct 07, 2024 12:01
--- NOTE | 2024-10-07 17:20 | DVHPN2 ---
Subjective Overnight events noted. Patient is status post T11/T12/L1 spine surgery intervention postop day 2. Patient is currently taking few steps with the physical therapy with the assistance of front wheel walker. Reviewed: Care Plan Changes from previous H/P or p: No Changes Objective Vitals Vital Signs Date Time Temp Pulse Resp B/P (MAP) Pulse Ox O2 Delivery O2 Flow Rate FiO2 10/07/24 13:00 98.0 99 15 125/78 (94) 93 98.0 10/07/24 08:26 Room Air* 0 21 Intake/Output Intake and Output 10/07/24 07:00 Intake Total 3380 ml Output Total 3620 ml Balance -240 ml Intake Oral 2630 ml IV Total 750 ml Output Urine Total 3500 ml Drainage Total 120 ml # Bowel Movements 1 Exam HEENT pupils are reactive Neck is supple CV is S1-S2 regular rate and rhythm Respiratory diminished breath sound bases GI posterior bowel sound Extremity no edema 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 motor 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 Medications Current Medications Medications Dose Ordered Sig/Jonathan Route Start Time Stop Time Status Last Admin Dose Admin Temazepam 15 mg QHSP PRN PO 10/04/24 07:15 10/06/24 22:13 15 MG Zinc Sulfate 220 mg DAILY PO 10/04/24 10:00 10/07/24 09:30 220 MG Ascorbic Acid 500 mg BID PO 10/04/24 10:00 10/07/24 09:30 500 MG Lisinopril 2.5 mg DAILY PO 10/05/24 10:00 10/07/24 09:31 2.5 MG Trimethoprim/ Sulfamethoxazole 0.5 tab MWF PO 10/04/24 18:00 10/06/24 10:15 0.5 TAB Dextrose/Sodium Chloride 1,000 ml @ 100 mls/hr Q10H IV 10/05/24 17:30 10/07/24 14:12 100 MLS/HR Ondansetron HCl 4 mg Q4HP PRN IV 10/05/24 17:30 Acetaminophen 650 mg Q6HP PRN PO 10/05/24 17:30 10/06/24 22:14 650 MG Cyclobenzaprine HCl 10 mg TID PO 10/05/24 22:00 10/07/24 14:13 10 MG Docusate Sodium 100 mg BID PO 10/05/24 22:00 10/07/24 09:30 100 MG Nitroglycerin 0.4 mg Q5MINP PRN SL 10/05/24 17:30 Morphine Sulfate 2 mg Q30M PRN IV 10/05/24 17:30 Throat Lozenges 1 lili Q2HP PRN MT 10/05/24 18:00 10/06/24 19:59 1 LILI Acetaminophen/ Hydrocodone Bitart 2 tab Q4HPRN PRN PO 10/06/24 16:30 10/07/24 16:21 2 TAB Morphine Sulfate 3 mg Q4HP PRN IV 10/06/24 16:30 10/07/24 04:30 3 MG Laboratory Results Laboratory Tests 10/03/24 20:55 10/05/24 18:21 Urinalysis Test 10/04/24 02:39 Urine Color Yellow (Yellow) Urine Clarity Clear (Clear) Urine pH 5.5 (5.0-9.0) Urine Specific [place] 1.025 (1.001-1.035) Urine Protein Negative (Negative) Urine Ketones Negative (Negative) Urine Blood Negative /uL (Negative) Urine Nitrite Negative (Negative) Urine Bilirubin Negative (Negative) Urine Urobilinogen Normal mg/dL (Negative) Urine Leukocyte Esterase Negative /uL (Negative) Urine RBC <1 /hpf (0 - 3) Urine Microscopic WBC 1 /HPF (0-3) Urine Squamous Epithelial Cells None seen /hpf (<5) Urine Bacteria None seen /hpf (None Seen) Urine Glucose Normal mg/dL (Normal) Assessment/Plan Assessment/Plan 69-year-old male with a known history of hypertension, pre diabetes mellitus type 2, history of intracranial/subdural hematoma status post drainage in the past, multiple myeloma currently on chemotherapy, previous history of lumbar spine kyphoplasty at L2-3 five last year presented to the hospital with a bilateral lower extremity weakness found to have 1. Bilateral lower extremity weakness suspect thoracic/lumbar radiculopathy/myelopathy, status post T11/T12/L1 spine surgery intervention 2. Previous history of L2-3 five kyphoplasty 3. Hypertension 4. Diabetes mellitus type 2 5. Multiple myeloma currently on chemotherapy -continue pain meds as needed, physical therapy evaluation and treatment, follow up spine surgery recommendations. Plan discussed with: Patient Date of Service: Oct 07, 2024 Billing Provider: GIOVANNI BURKS MD Common Visit Codes: NOT BILLABLE GIOVANNI BURKS MD Oct 07, 2024 17:20
[2024-10-08] VITALS (9 sets, daily range): BP systolic 120–160; BP diastolic 64–86; PULSE 69–108; RESP 16–22; TEMP 97.7–98.4; O2SAT 92–98
--- NOTE | 2024-10-08 16:13 | DVHPN2 ---
Subjective Overnight events noted. Patient is status post T11/T12/L1 spine surgery intervention postop day 2. Patient is currently taking few steps with the physical therapy with the assistance of front wheel walker. Reviewed: Care Plan Changes from previous H/P or p: No Changes Objective Vitals Vital Signs Date Time Temp Pulse Resp B/P (MAP) Pulse Ox O2 Delivery O2 Flow Rate FiO2 10/08/24 14:43 103 136/76 (96) 10/08/24 13:00 97.7 22 98 97.7 10/08/24 08:00 Room Air* 0 21 Intake/Output Intake and Output 10/08/24 07:00 Intake Total 2000 ml Output Total 2700 ml Balance -700 ml Intake Oral 950 ml IV Total 1050 ml Output Urine Total 2650 ml Drainage Total 50 ml Exam HEENT pupils are reactive Neck is supple CV is S1-S2 regular rate and rhythm Respiratory diminished breath sound bases GI posterior bowel sound Extremity no edema 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 motor 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 Medications Current Medications Medications Dose Ordered Sig/Jonathan Route Start Time Stop Time Status Last Admin Dose Admin Temazepam 15 mg QHSP PRN PO 10/04/24 07:15 10/07/24 22:41 15 MG Zinc Sulfate 220 mg DAILY PO 10/04/24 10:00 10/08/24 08:37 220 MG Ascorbic Acid 500 mg BID PO 10/04/24 10:00 10/08/24 08:36 500 MG Lisinopril 2.5 mg DAILY PO 10/05/24 10:00 10/08/24 08:37 2.5 MG Trimethoprim/ Sulfamethoxazole 0.5 tab MWF PO 10/04/24 18:00 10/08/24 08:36 0.5 TAB Ondansetron HCl 4 mg Q4HP PRN IV 10/05/24 17:30 Acetaminophen 650 mg Q6HP PRN PO 10/05/24 17:30 10/06/24 22:14 650 MG Cyclobenzaprine HCl 10 mg TID PO 10/05/24 22:00 10/08/24 13:24 10 MG Docusate Sodium 100 mg BID PO 10/05/24 22:00 10/08/24 08:37 100 MG Nitroglycerin 0.4 mg Q5MINP PRN SL 10/05/24 17:30 Morphine Sulfate 2 mg Q30M PRN IV 10/05/24 17:30 Throat Lozenges 1 lili Q2HP PRN MT 10/05/24 18:00 10/06/24 19:59 1 LILI Acetaminophen/ Hydrocodone Bitart 2 tab Q4HPRN PRN PO 10/06/24 16:30 10/08/24 04:50 2 TAB Morphine Sulfate 3 mg Q4HP PRN IV 10/06/24 16:30 10/07/24 04:30 3 MG Laboratory Results Laboratory Tests 10/03/24 20:55 10/05/24 18:21 Urinalysis Test 10/04/24 02:39 Urine Color Yellow (Yellow) Urine Clarity Clear (Clear) Urine pH 5.5 (5.0-9.0) Urine Specific [place] 1.025 (1.001-1.035) Urine Protein Negative (Negative) Urine Ketones Negative (Negative) Urine Blood Negative /uL (Negative) Urine Nitrite Negative (Negative) Urine Bilirubin Negative (Negative) Urine Urobilinogen Normal mg/dL (Negative) Urine Leukocyte Esterase Negative /uL (Negative) Urine RBC <1 /hpf (0 - 3) Urine Microscopic WBC 1 /HPF (0-3) Urine Squamous Epithelial Cells None seen /hpf (<5) Urine Bacteria None seen /hpf (None Seen) Urine Glucose Normal mg/dL (Normal) Assessment/Plan Assessment/Plan 69-year-old male with a known history of hypertension, pre diabetes mellitus type 2, history of intracranial/subdural hematoma status post drainage in the past, multiple myeloma currently on chemotherapy, previous history of lumbar spine kyphoplasty at L2-3 five last year presented to the hospital with a bilateral lower extremity weakness found to have 1. Bilateral lower extremity weakness suspect thoracic/lumbar radiculopathy/myelopathy, status post T11/T12/L1 spine surgery intervention 2. Previous history of L2-3 five kyphoplasty 3. Hypertension 4. Diabetes mellitus type 2 5. Multiple myeloma currently on chemotherapy -continue pain meds as needed, physical therapy evaluation and treatment, follow up spine surgery recommendations. Plan discussed with: Patient Date of Service: Oct 08, 2024 Billing Provider: GIOVANNI BURKS MD Common Visit Codes: NOT BILLABLE GIOVANNI BURKS MD Oct 08, 2024 16:13
--- NOTE | 2024-10-08 16:49 | DVHDS2 ---
ASSESSMENT ASSESSMENT Hospital Course The patient was admitted to the hospital for elective spine surgery with Dr Shania Monteiro. The surgery was uneventful and the patient was recovered in the PACU without event During the post operative phase the patient was admitted for post operative pain control, PT and post operative nursing care. The patient progressed well and was able to be transitioned from IV pain meds to oral only medications with muscle relaxer. The patient progressed with PT and his drain output diminished and the drains were pulled without event. The patient has progressed to discharge and after a final PT session, it was deemed suitable for discharge home. Assessment thoracic 12 burst fracture with retropulsion into spinal canal resultingin cord compromise/cord signal changes and myelopathy with progressiveneurologic deficit Problems: (1) Muscle spasm of back Assessments: Sent home with medications to this ailment (2) Postoperative pain after spinal surgery Assessments: Sent home with medications to this ailment ETHAN GONG NP Oct 08, 2024 16:49
[2024-10-08] MEDS ORDERED: DOCU-265 PO (16:53)
[2024-10-08] MEDS ORDERED: HYDR-4798 PO (16:53)
[2024-10-08] MEDS ORDERED: CYCL-611 PO (16:53)
--- NOTE | 2024-10-08 16:57 | DVHDS2 ---
Discharge Summary Date of Admission Oct 04, 2024 at 07:09 Date of Discharge: Oct 08, 2024 Admitting Diagnosis thoracic 12 burst fracture with retropulsion into spinal canal resulting in cord compromise/cord signal changes and myelopathy with progressive neurologic deficit Wounds: thoracolumbar surgical site, ANGELA dressing in place, seal intact. power source functioning Labs/Diagnostic Data: Laboratory Results Test 10/05/24 18:21 10/04/24 02:39 10/03/24 21:50 10/03/24 20:55 Prothrombin Time 9.8 sec (9.3-11.8) Prothrombin Time INR 0.92 (0.9-1.15) Activated Partial Thromboplast Time 27.8 SEC (24.5-34.5) Sodium Level 132 mmol/L (136-145) Potassium Level 3.9 mmol/L (3.5-5.1) Chloride Level 99 mmol/L (98-107) Carbon Dioxide Level 27 mmol/L (20-31) Anion Gap 6 (5-15) Blood Urea Nitrogen 10 mg/dL (9-23) Creatinine 0.60 mg/dL (0.700-1.30) Glomerular Filtration Rate Calc 106 mL/min (>90) BUN/Creatinine Ratio 16.7 (10.0-20.0) Serum Glucose 121 mg/dL (74-106) Calcium Level 8.5 mg/dL (8.7-10.4) Magnesium Level 2.0 mg/dL (1.6-2.6) Total Bilirubin 0.6 mg/dL (0.2-1.0) Aspartate Amino Transferase (AST) 42 U/L (13-40) Alanine Aminotransferase (ALT) 97 U/L (7-40) Alkaline Phosphatase 88 U/L (46-116) Total Protein 5.3 g/dL (5.7-8.2) Albumin 3.9 g/dL (3.2-4.8) Urine Color Yellow (Yellow) Urine Clarity Clear (Clear) Urine pH 5.5 (5.0-9.0) Urine Specific [place] 1.025 (1.001-1.035) Urine Protein Negative (Negative) Urine Ketones Negative (Negative) Urine Blood Negative /uL (Negative) Urine Nitrite Negative (Negative) Urine Bilirubin Negative (Negative) Urine Urobilinogen Normal mg/dL (Negative) Urine Leukocyte Esterase Negative /uL (Negative) Urine RBC <1 /hpf (0 - 3) Urine Microscopic WBC 1 /HPF (0-3) Urine Squamous Epithelial Cells None seen /hpf (<5) Urine Bacteria None seen /hpf (None Seen) Urine Glucose Normal mg/dL (Normal) Troponin I High Sensitivity < 3 ng/L (</=54) White Blood Count 8.3 10^3/uL (4.4-10.8) Red Blood Count 4.25 10^6/uL (4.5-5.90) Hemoglobin 14.1 g/dL (13.5-17.5) Hematocrit 42.0 % (41.0-53.0) Mean Corpuscular Volume 98.9 fL (80.0-100.0) Mean Corpuscular Hemoglobin 33.2 pg (28.0-32.0) Mean Corpuscular Hemoglobin Concent 33.6 g/dL (32.0-36.0) Red Cell Distribution Width 16.8 % (11.8-14.3) Platelet Count 143 10^3/uL (140-450) Mean Platelet Volume 8.9 fL (6.9-10.8) Neutrophils (%) (Auto) % (37.0-80.0) Lymphocytes (%) (Auto) % (10.0-50.0) Monocytes (%) (Auto) % (0.0-12.0) Basophils (%) (Auto) % (0.0-2.0) Neutrophils # (Auto) 10 ^3/uL (1.6-8.6) Lymphocytes # (Auto) 10 ^3/uL (0.4-5.4) Monocytes # (Auto) 10 ^3/uL (0-1.3) Differential Total Cells Counted 100.0 (100) Neutrophils % (Manual) 67 (37.0-80.0) Band Neutrophils % (Manual) 12 Lymphocytes % (Manual) 8 (10.0-50.0) Monocytes % (Manual) 9 (0-12) Eosinophils % (Manual) 3 (0-7) Basophils % (Manual) 0 (0.0-2.0) Metamyelocytes % (manual) 0 Myelocytes % (Manual) 0 Promyelocytes % (Manual) 0 Blast Cells % (Manual) 0 Reactive Lymphocytes 1 Platelet Estimate Adequate Large Platelets Few Other Laboratory Tests 10/05/24 18:21 10/03/24 20:55 Brief Hx & Hospital Course: The patient was admitted to the hospital for elective spine surgery with Dr Shania Monteiro. The surgery was uneventful and the patient was recovered in the PACU without event During the post operative phase the patient was admitted for post operative pain control, PT and post operative nursing care. The patient progressed well and was able to be transitioned from IV pain meds to oral only medications with muscle relaxer. The patient progressed with PT and his drain output diminished and the drains were pulled without event. The patient has progressed to discharge and after a final PT session, it was deemed suitable for discharge home. Operations or Procedures procedure: 1. lumbar 1 laminectomy with lumbar 1 foraminotomies and facetectomies to decompress spinal canal and L1 nerve roots 2. thoracic 12 laminectomy with thoracic 12 foraminotomies/facetectomies to decompress spinal canal and thoracic 12 nerve roots 3. thoracic 11 laminectomy with thoracic 11 foraminotomies/facetectomies to decompress spinal canal and thoracic 11 nerve roots 4. thoracic 11 to lumbar 1 posterior spinal intertransverse fusion 5. thoracic 11 to lumbar 1 posterior spinal instrumentation with pedicle screws: xtant spine Condition at Discharge: Good Final Diagnosis/Problems List thoracic 12 burst fracture with retropulsion into spinal canal resulting in cord compromise/cord signal changes and myelopathy with progressive neurologic deficit post operative state R/T spine surgery Secondary Diagnosis: muscle spasms of the back Problems List: (1) Postoperative pain after spinal surgery Status: Acute (2) Muscle spasm of back Status: Acute Discharge Disposition: Home Discharge Instruct/Medications Diet: Regular Diet comment: small frequent meals Activity: Light activity Activity comment: No bending lifting or twisting this may cause muscle spasms. Take your medications as directed Follow Up/Referral: keep you follow up appointment on the date and time it was scheduled Medications: You medications are sent to your pharmacy of choice New Medications: Cyclobenzaprine HCl (Cyclobenzaprine Hydrochlo) 10 Mg Tab 10 MG PO TID for 30 Days, #90 TAB Docusate Sodium (Docusate Sodium) 100 Mg Cap 100 MG PO BID for 14 Days, #28 CAP Hydrocodone-Acetaminophen (Hydrocodone Bitartrate/AC 10-325 mg) 1 Tab Tab 2 TAB PO Q6HPRN PRN for 14 Days, #112 TAB Continued Medications: Acyclovir (Acyclovir) 400 Mg Tab 1 TAB PO BID Amlodipine Besylate (Norvasc Tablet) Unknown Strength Tb Unknown Dose PO DAILY, #30 TAB 5 Refills Aspirin (Aspir-Low) 81 Mg Tab 81 MG PO DAILY for 30 Days, MG Cyclobenzaprine Hcl (Cyclobenzaprine Hcl) Unknown Strength Tab Unknown Dose PO Q8HP for 30 Days, MG Dexamethasone (Dexamethasone) Unknown Strength Tab Unknown Dose PO, MG Ergocalciferol (Vitamin D) 50,000 Unit Cap 1 CAP PO QWEEKLY Gabapentin (Gabapentin) Unknown Strength Cap Unknown Dose PO for 30 Days, MG Hydrocodone-Acetaminophen (Hydrocodone Bitartrate/AC 5-325 mg) Unknown Strength Tab Unknown Dose PO, TAB Ibuprofen (Ibuprofen) Unknown Strength Cap Unknown Dose PO, MG Lisinopril (Lisinopril) 2.5 Mg Tab 2.5 MG PO DAILY, TAB Loratadine (Claritin) Unknown Strength Tab Unknown Dose PO DAILY, #30 TAB 5 Refills Metformin Hydrochloride (Metformin Hcl) Unknown Strength Tab Unknown Dose PO IBID for 30 Days, MG Morphine Sulfate (Morphine Sulfate) Unknown Strength Tab Unknown Dose PO, TAB Prednisone (Prednisone) Unknown Strength Tb Unknown Dose PO DAILY, #360 TAB 3 Refills Sulfamethoxazole-Trimethoprim (Bactrim) 1 Tab Tab 1 TAB PO DAILY, MG Care Plan: Patient may shower, avoid getting ANGELA dressing wet. seal the power source in a ziplock bag and tape the seal closed The drain sites may leak over the next 2-3 days, this is normal. The drainage should be pink in color. If the drainage is blood red and thick go to the ED. No bending lifting or twisting this may cause muscle spasms. Take your medications as directed keep you follow up appointment on the date and time it was scheduled You medications are sent to your pharmacy of choice This is a video about your angela dressing. [email or web address] The patient was admitted to the hospital for elective spine surgery with Dr Shania Monteiro. The surgery was uneventful and the patient was recovered in the PACU without event During the post operative phase the patient was admitted for post operative pain control, PT and post operative nursing care. The patient progressed well and was able to be transitioned from IV pain meds to oral only medications with muscle relaxer. The patient progressed with PT and his drain output diminished and the drains were pulled without event. The patient has progressed to discharge and after a final PT session, it was deemed suitable for discharge home. needed for the treatment of acute pain due to spine surgery Discharge Statement: "Patient was advised to return to the ER or call 911 if any headaches, dizziness, shortness of breath, chest pain, abdominal pain, bleeding, fevers, or worsening of medical condition. Patient was counseled about treatment plan, medications, possible side effects, patientverbalized understanding. All questions were answered to the best of my ability. This discharge took greater then 30 minutes in planning, reviewing documentation, counseling the patient, and discussing with other team members." ASSESSMENT ASSESSMENT Hospital Course The patient was admitted to the hospital for elective spine surgery with Dr Shania Monteiro. The surgery was uneventful and the patient was recovered in the PACU without event During the post operative phase the patient was admitted for post operative pain control, PT and post operative nursing care. The patient progressed well and was able to be transitioned from IV pain meds to oral only medications with muscle relaxer. The patient progressed with PT and his drain output diminished and the drains were pulled without event. The patient has progressed to discharge and after a final PT session, it was deemed suitable for discharge home. Assessment Sent home with medications to this ailment Problems: (1) Muscle spasm of back Assessments: Sent home with medications to this ailment (2) Postoperative pain after spinal surgery Assessments: Sent home with medications to this ailment ETHAN GONG NP Oct 08, 2024 16:57
[2024-10-09 01:00] VITALS: BP 127/72; PULSE 99; RESP 20; TEMP 99.1; O2SAT 96
[2024-10-09 05:00] VITALS: BP 120/77; PULSE 107; RESP 20; TEMP 98.9; O2SAT 95
[2024-10-09 08:00] VITALS: PULSE 102; PULSE 62; RESP 16; O2SAT 92
[2024-10-09 08:16] VITALS: BP 147/63; PULSE 52; RESP 16; TEMP 37.2
== END 2024-10-09 09:23 | disposition home health service (06) | DRG 448 ==
LOC: ER 12:45 → OVERFLOW 10-04 07:09 → WEST WING 10-05 10:18 → TELE-WESTW 10-06 04:42
PROVIDERS: ADMIT Internal Medicine; ATTEND Internal Medicine
PROC: 0RGA071 Fusion of Thoracolumbar Vertebral Joint with Autologous Tissue Substitute, Posterior Approach, Posterior Column, Open Approach (ICD-10-PCS; 2024-10-05)
PROC: 01NB0ZZ Release Lumbar Nerve, Open Approach (ICD-10-PCS; 2024-10-05)
PROC: 01N80ZZ Release Thoracic Nerve, Open Approach (ICD-10-PCS; 2024-10-05)
PROC: 00NY0ZZ Release Lumbar Spinal Cord, Open Approach (ICD-10-PCS; 2024-10-05)
PROC: 00NX0ZZ Release Thoracic Spinal Cord, Open Approach (ICD-10-PCS; 2024-10-05)
PROC: 4A11X4G Monitoring of Peripheral Nervous Electrical Activity, Intraoperative, External Approach (ICD-10-PCS; 2024-10-05)
PROC: 0RG6071 Fusion of Thoracic Vertebral Joint with Autologous Tissue Substitute, Posterior Approach, Posterior Column, Open Approach (ICD-10-PCS; principal; 2024-10-05 15:30)
DX: S22.081A Stable burst fracture of T11-T12 vertebra, initial encounter for closed fracture (principal); C90.00 Multiple myeloma not having achieved remission; G99.2 Myelopathy in diseases classified elsewhere; M48.04 Spinal stenosis, thoracic region; E11.9 Type 2 diabetes mellitus without complications; M54.16 Radiculopathy, lumbar region; I10 Essential (primary) hypertension; M62.830 Muscle spasm of back; I95.9 Hypotension, unspecified; X58.XXXA Exposure to other specified factors, initial encounter; G89.18 Other acute postprocedural pain; Z79.82 Long term (current) use of aspirin; Z79.899 Other long term (current) drug therapy; Y93.89 Activity, other specified; Y92.89 Other specified places as the place of occurrence of the external cause; Y99.8 Other external cause status; M54.14 Radiculopathy, thoracic region
CPT/HCPCS: 36415; 71045; 72070; 72128; 72131; 76000; 80048; 80053; 81001; 83735; 84484; 85007; 85027; 85610; 85730; 93005; 93306; 94640; 96372; 97110; 97116; 97162; 97163; 97530; G0378; J0131; J0330; J1100; J2250; J2405; J2704; J7042

== ENCOUNTER 2025-02-05 10:50 | Inpatient (IN) | payer MEDICAID, OTHER ==
[2025-02-05] VITALS (7 sets, daily range): BP systolic 90–121; BP diastolic 67–89; PULSE 63–97; RESP 14–23; TEMP 97.8–98.2; O2SAT 96–99
[~2025-02-05] VITALS: Ht 175.3 cm; Wt 131.5 kg
[~2025-02-05 10:50] MED LIST changes: +ACYC1TAB2 PO; +CYCL-611 PO; +DOCU-265 PO; +ERGO1CAP12 PO; +HYDR-4798 PO
--- NOTE | 2025-02-05 11:13 | ED.PDOC ---
SOB-HPI HPI Comments Abdoul: EMANI, sob. doris. HPI: Poor Historian. 70-year-old male presents to emergency department for evaluation of respiratory distress for at least one-week. Patient arrives by EMS in non-rebreather 15 L supplemental oxygen. Past Medical History: Multiple myeloma, DM, HTN, Previous history of L2-3 five kyphoplasty Past Surgical History: Bilateral lower extremity weakness suspect thoracic/lumbar radiculopathy/myelopathy, status post T11/T12/L1 spine surgery intervention REVIEW OF SYSTEMS: CONSTITUTIONAL: Denies acute: fever, diaphoresis, chills, HEAD: Denies acute: headache, photophobia Eyes: Denies acute: Double vision, vision loss, eye pain, eye discharge. EARS: Denies acute: tinnitus, hearing loss, ear discharge, ear pain, THROAT: Denies acute: sore throat, swelling, difficulty swallowing , pain with swallowing, change in voice. NECK: Denies acute: neck pain, neck swelling, stiff neck. HEART: Denies acute : chest pain, palpitations, LUNGS: Denies acute: wheezing, cough, hemoptysis ABDOMEN: Denies acute: abdominal pain, Nausea, Vomiting, melena , hematemesis, hematochezia SKIN: Denies acute: rash, redness, lesions, itchiness. EXTREMITIES: Denies acute: calf pain, numbness, tingling, weakness, denies pain in extremity. Denies acute: Low back pain. Neuro: Denies acute: focal neurological deficit, motor or sensory focal neurological deficit, tremors, seizure like activity, confusion, dizziness, change in mental status, loss of bowel or bladder function, cauda equina like symptoms. : Denies acute: dysuria, hematuria, flank pain, increase in urinary frequency. PSYCH: Denies acute: hallucination, suicidal ideation, homicidal ideation. PHYSICAL EXAM: General: ----[id number]----acute distress, awake and alert. Head: normocephalic, atraumatic. Neck: supple, trachea is midline, no swelling. Throat: Normal phonation. Eyes:, no erythema, no purulent discharge, no proptosis, no icterus. Heart: regular rate, regular rhythm, no significant murmur appreciated. Lungs: no apparent respiratory distress, Able to speak in full sentences. No wheezing, no rhonchi, no crackles. No stridors Clear to auscultation bilaterally. Abdomen: non tender to palpation, non distended, soft, no guarding, no rebound, + bowel sounds. Morbidly obese Neuro: Awake, Alert, oriented to name, self, situation, follows commands GCS=15. Speech is normal. Skin: no petechia, no purpura, no cyanosis, non-pale, not jaundice. Lower extremities: --2/4 bilateral - Pitting edema no deformity, no focal swelling, no calf TTP. Makes eye contact. moves all four extremities. Face: no apparent facial droop. ED COURSE: DISCLAIMER: This medical document was created using an electronic medical record system with voice recognition software and computerized dictation system. Although this document has been carefully reviewed, there might still be some phonetic and typographical errors. Occasional wrong-word or "sound-alike" substitutions may have occurred due to the inherent limitations of voice recognition software. These areas are purely typographical due to imperfections of the software programs and do not reflect any compromise in the patient's medical care. Please read the chart carefully and recognize, using context, where these substitutions have occurred. Chief Complaint: Shortness of Breath Time Seen by MD: 11:00 Primary Care Provider: bandar Information Source: Patient, Emergency Med Personnel Past Medical History PAST MEDICAL HISTORY: HTN Family History Family History: Reviewed,noncontributory to illness, Unknown Social History Smoker: Non-Smoker Alcohol: Denies ETOH Use Drugs: Denies Drug Use Lives In: Home Was a procedure done? Was a procedure done?: No Differential Dx Differential Diagnosis: Other (DDx include ACS, unstable angina, anxiety, PE, pneumothroax, neoplasm, cardiac ischemia, COPD, asthma, CHF, pleural effusion, tobacco abuse, pneumonia, hypoxia, hypercapnia, anemia., infection/sepsis., pulmonary edema. Asthma, Cardiac tamponade, infection.) X-Ray, Labs, Meds, VS Vital Signs Date Time Temp Pulse Resp B/P (MAP) Pulse Ox O2 Delivery O2 Flow Rate FiO2 02/05/25 20:15 63 18 96 Oxymizer 6 N/A 02/05/25 19:24 63 18 90/59 (69) 100 02/05/25 16:58 86 02/05/25 16:12 97 19 96 Oxymizer 6 N/A 02/05/25 16:00 98 Oxymizer 6 N/A 02/05/25 16:00 97.8 82 16 103/73 (83) 98 97.8 02/05/25 14:00 80 16 107/66 (80) 95 02/05/25 13:00 02/05/25 12:12 121/64 02/05/25 12:00 95 20 121/64 (83) 95 02/05/25 11:30 97.8 113 27 104/61 (75) 98 97.8 02/05/25 11:22 97.7 108 25 123/81 (95) 99 97.7 02/05/25 10:50 118 Lab Test 02/05/25 17:17 02/05/25 14:15 02/05/25 12:59 02/05/25 11:12 Range/Units D-Dimer, Quantitative 0.33 0.0-0.49 mg/L FEU Urine Color Light-yellow Yellow Urine Clarity Clear Clear Urine pH 5.5 5.0-9.0 Urine Specific [place] 1.008 1.001-1.035 Urine Protein Negative Negative Urine Ketones Negative Negative Urine Blood Negative Negative /uL Urine Nitrite Negative Negative Urine Bilirubin Negative Negative Urine Urobilinogen Normal Negative mg/dL Urine Leukocyte Esterase 3+ Negative /uL Urine RBC 3 0 - 3 /hpf Urine Microscopic WBC 19 H 0-3 /HPF Urine Squamous Epithelial Cells Few <5 /hpf Urine Bacteria None seen None Seen /hpf Urine Glucose 1+ H Normal mg/dL Lactic Acid Level 2.0 2.6 *H 0.4-2.0 mmol/L White Blood Count 7.5 4.4-10.8 10^3/uL Red Blood Count 3.90 L 4.5-5.90 10^6/uL Hemoglobin 13.5 13.5-17.5 g/dL Hematocrit 39.3 L 41.0-53.0 % Mean Corpuscular Volume 100.8 H 80.0-100.0 fL Mean Corpuscular Hemoglobin 34.5 H 28.0-32.0 pg Mean Corpuscular Hemoglobin Concent 34.2 32.0-36.0 g/dL Red Cell Distribution Width 17.0 H 11.8-14.3 % Platelet Count 92 L 140-450 10^3/uL Mean Platelet Volume 7.9 6.9-10.8 fL Neutrophils (%) (Auto) 37.0-80.0 % Lymphocytes (%) (Auto) 10.0-50.0 % Monocytes (%) (Auto) 0.0-12.0 % Basophils (%) (Auto) 0.0-2.0 % Neutrophils # (Auto) 1.6-8.6 10 ^3/uL Lymphocytes # (Auto) 0.4-5.4 10 ^3/uL Monocytes # (Auto) 0-1.3 10 ^3/uL Differential Total Cells Counted 100.0 100 Neutrophils % (Manual) 73 37.0-80.0 Band Neutrophils % (Manual) 9 Lymphocytes % (Manual) 11 10.0-50.0 Monocytes % (Manual) 7 0-12 Eosinophils % (Manual) 0 0-7 Basophils % (Manual) 0 0.0-2.0 Metamyelocytes % (manual) 0 Myelocytes % (Manual) 0 Promyelocytes % (Manual) 0 Blast Cells % (Manual) 0 Reactive Lymphocytes 0 Platelet Estimate Decreased Sodium Level 136 136-145 mmol/L Potassium Level 3.5 3.5-5.1 mmol/L Chloride Level 99 98-107 mmol/L Carbon Dioxide Level 26 20-31 mmol/L Anion Gap 11 5-15 Blood Urea Nitrogen 13 9-23 mg/dL Creatinine 0.67 L 0.700-1.30 mg/dL Glomerular Filtration Rate Calc 102 >90 mL/min BUN/Creatinine Ratio 19.4 10.0-20.0 Serum Glucose 158 H 74-106 mg/dL Calcium Level 8.8 8.7-10.4 mg/dL Magnesium Level 1.9 1.6-2.6 mg/dL Total Bilirubin 0.4 0.2-1.0 mg/dL Aspartate Amino Transferase (AST) 54 H <34 U/L Alanine Aminotransferase (ALT) 116 H 7-40 U/L Alkaline Phosphatase 147 H 46-116 U/L Troponin I High Sensitivity 6 </=54 ng/L B-Type Natriuretic Peptide 31.53 0-100 pg/mL Total Protein 5.4 L 5.7-8.2 g/dL Albumin 3.9 3.2-4.8 g/dL Current Medications Medications (Trade) Dose Ordered Sig/Jonathan Route Start Time Stop Time Status Last Admin Furosemide (Lasix Injection) 40 mg ONCE ONCE IV 02/05/25 11:15 02/05/25 11:16 DC 02/05/25 12:12 Piperacillin Sod/ Tazobactam Sod 100 ml @ 100 mls/hr ONCE ONCE IV 02/05/25 12:15 02/05/25 13:14 DC 02/05/25 12:43 [place] [id number] Ph: [phone] DIAGNOSTIC IMAGING Diagnostic Imaging Report : [id number] Signed PATIENT: COLLIN PRESLEY ACCT: [id number] UNIT: [id number] : 1955 LOC: ER ROOM / BED: / AGE / SEX: 70 / M ADM STATUS: REG ER SERVICE [id number] ORDERING PHYSICIAN: IFEANYI HARRIS MD PROCEDURE(s): CXRP - CHEST PORTABLE REASON: SOB ORDER NUMBER(s): [id number], ACCESSION NUMBER(s): [id number] XY CHEST PORTABLE, HISTORY: SOB COMPARISON: XY CHEST PORTABLE on DOS: 10/03/24 XY CHEST PORTABLE on DOS: 10/03/24 TECHNICAL DATA: 1 view of the chest was obtained. FINDINGS: Lines and tubes: None Cardiomediastinal silhouette: normal Pulmonary vasculature: normal Lung expansion: normal Lung airspace: Bibasilar airspace opacity, nonspecific. Lung interstitium: normal Pleura: normal Pneumothorax: no Bones: Unremarkable Other: no IMPRESSION: Bibasilar airspace opacity, nonspecific. ATED BY: EVER SMITH MD DICTATED DATE/TIME: 02/05/251211 SIGNED BY: EVER SMITH MD SIGNED DATE/TIME: 02/05/251211 CC: [place] [id number] Ph: [phone] DIAGNOSTIC IMAGING Diagnostic Imaging Report : [id number] Signed PATIENT: COLLIN PRESLEY ACCT: [id number] UNIT: [id number] : 1955 LOC: ER ROOM / BED: / AGE / SEX: 70 / M ADM STATUS: REG ER SERVICE 1703 ORDERING PHYSICIAN: FRANCOIS MIRANDA DO PROCEDURE(s): CTACH - CT ANGIO CHEST CONTRAST REASON: sob ORDER NUMBER(s): [id number], ACCESSION NUMBER(s): [id number] CTA Chest with intravenous contrast INDICATION: sob COMPARISON: None TECHNIQUE: Multidetector spiral CTA of the chest was performed of the chest with intravenous contrast. PULMONARY ANGIOGRAPHY PROTOCOL was utilized using a bolus- tracking technique centered on the main pulmonary artery. Axial, coronal and sagittal multiplanar and MIP reformats were performed. Radiation Dose : 1. Chest: Dose-length product is 1016 mGy*cm 70 mL of Omni 350 was injected The dose indicators for CT are the volume Computed Tomography (CT) Dose Index (CTDIvol) and the Dose Length Product (DLP), and are measured in units of mGy and mGy-cm, respectively. These indicators are not patient dose, but values generated from the CT scanner acquisition factors. The report includes radiation exposure data for exposures received during this examination. Findings: Pulmonary artery: No pulmonary embolism Lower neck: Normal thyroid. Lungs: Scattered nodular densities in the lingula and right lower lobe may reflect mild multifocal pneumonia. Prominent paraseptal emphysema is seen. Heart/Vascular Structures: Normal heart size. No pericardial effusion. Lymph Nodes: No adenopathy Pleura: No pleural effusion or significant pneumothorax. Musculoskeletal: Surgical fixation hardware is seen in the lower thoracic spine. Chronic compression fracture is seen in the T12 vertebral body. Soft tissues: Normal. Upper abdomen: Limited portions of the upper abdomen are unremarkable. IMPRESSION: 1. No pulmonary embolism. 2. Scattered nodular densities in the lingula and right lower lobe may reflect mild multifocal pneumonia. ATED BY: MONICA FERNANDES MD DICTATED DATE/TIME: 02/05/251838 SIGNED BY: MONICA FERNANDES MD SIGNED DATE/TIME: 02/05/251838 CC: Time of 1ST Reevaluation: 11:30 Reevaluation 1ST: Unchanged Time of 2ND Reevaluation: 17:05 (The case was discussed with the admitting team (HPI, physical exam, labs and diagnostic tests that were available at the time of disposition, ED course, treatment plan) on the phone. They agreed to admit the patient to their service and assume care of this patient from this point forward. --- Lorenzo) Patient Education/Counseling: Diagnosis, Treatment, Other (need for admission ) Family Education/Counseling: No Family Present Comments Sepsis protocol was initiated with weight based fluid resuscitation. However patient is volume overloaded and with pitting edema bilaterally. We were conservative in our with fluid resuscitation. Patient presented with the above HPI.---dyspnea respiratory distress---workup was initiated. patient was found with the above mentioned diagnosis. the following medications were ordered: please refer to order lists of meds and tests obtained by myself Dr. Miranda. Patient ED course and VS have been stabilized. Patient has been reassessed in the ED and remained in a stable condition. Pertinent incidental findings were discussed with the patient and/or family. Patient/family voices understanding and is agreeable with plan. Patient has been observed in the ED adequate length of time to insure improvement/stability. Escalation of care considered: Consideration of escalation to observation or admission Patient was ADMITTED to the medicine team for further evaluation and treatment of their presentation. All the reports of any imaging studies that were ordered by myself were reviewed by myself. Departure 1 Departure Time of Disposition: 11:15 Impression: Primary Impression: Acute respiratory distress Additional Impressions: Elevated LFTs Thrombocytopenia Pneumonia UTI (urinary tract infection) Disposition: ADMITTED INPATIENT Admit to: Tele Condition: Guarded Discharged With: Self Critical Care Note Critical Care Time?: Yes (55 min-critical care time only) Heart Score Heart Score: Heart Score Response (Comments) Value History Moderate Suspicious 1 EKG Normal 0 Age >65 2 Risk Factors >3 or Hx ASHD 2 Troponin Normal limit 0 Total 5 I personally scribed for FRANCOIS MIRANDA DO ([email or web address]) on 02/05/25 at 11:13. Electronically submitted by Vince Machado ([email or web address]). I personally scribed for FRANCOIS MIRANDA DO ([email or web address]) on 02/05/25 at 19:47. Electronically submitted by Vince Machado ([email or web address]). I personally scribed for FRANCOIS MIRANDA DO ([email or web address]) on 02/05/25 at 20:55. Electronically submitted by Vince Machado ([email or web address]). FRANCOIS MIRANDA DO Feb 05, 2025 11:13
[2025-02-05 11:50] LABS: Hemoglobin 13.5 g/dL (13.5-17.5)
[2025-02-05 11:51] LABS: Hematocrit 39.3 % (41.0-53.0); Mean Corpuscular Hemoglobin 34.5 pg (28.0-32.0); Mean Corpuscular Hgb Conc. 34.2 g/dL (32.0-36.0); Mean Corpuscular Volume 100.8 fL (80.0-100.0); Platelet Count (auto) 92 10^3/uL (140-450); White Blood Cell 7.5 10^3/uL (4.4-10.8)
[2025-02-05 11:55] LABS: Albumin 3.9 g/dL (3.2-4.8); Anion Gap 11 (5-15); BUN/Creatinine Ratio 19.4 (10.0-20.0); Bilirubin, Total 0.4 mg/dL (0.2-1.0); Blood Urea Nitrogen 13 mg/dL (9-23); Calcium 8.8 mg/dL (8.7-10.4); Carbon Dioxide 26 mmol/L (20-31); Chloride 99 mmol/L (98-107); Magnesium 1.9 mg/dL (1.6-2.6); Potassium 3.5 mmol/L (3.5-5.1); Sodium 136 mmol/L (136-145)
[2025-02-05 11:56] LABS: Basophils % (manual) 0 (0.0-2.0); Blast Cells 0; Eosinophils % (manual) 0 (0-7); Metamyelocytes % 0; Myelocytes % 0; Promyelocytes % 0; Reactive Lymphocytes 0
[2025-02-05 11:58] LABS: Alanine Aminotransferase 116 U/L (7-40); Alkaline Phosphatase 147 U/L (46-116); Aspartate Aminotransferase 54 U/L (<34); Glucose 158 mg/dL (74-106); Total Protein 5.4 g/dL (5.7-8.2)
[2025-02-05 12:04] LABS: Lactic Acid w/Reflex 2.6 mmol/L (0.4-2.0)
[2025-02-05] MEDS: FUROSEMIDE 40 MG/4 ML VIAL IV ONE (12:12)
--- NOTE | 2025-02-05 12:15 | DVH ---
XY CHEST PORTABLE, HISTORY: SOB COMPARISON: XY CHEST PORTABLE on DOS: 10/03/24 XY CHEST PORTABLE on DOS: 10/03/24 TECHNICAL DATA: 1 view of the chest was obtained. FINDINGS: Lines and tubes: None Cardiomediastinal silhouette: normal Pulmonary vasculature: normal Lung expansion: normal Lung airspace: Bibasilar airspace opacity, nonspecific. Lung interstitium: normal Pleura: normal Pneumothorax: no Bones: Unremarkable Other: no IMPRESSION: Bibasilar airspace opacity, nonspecific.
[2025-02-05] MEDS: PIPERACILLIN-TAZOB 3.375GM 100 ML IV ONE (12:43)
[2025-02-05 12:48] LABS: Band Neutrophils % (manual) 9; Lymphocytes % (manual) 11 (10.0-50.0); Monocytes % (manual) 7 (0-12); Platelet Estimate Decreased
[2025-02-05 14:27] LABS: Urine Bacteria None Seen /hpf (None Seen)
[2025-02-05 14:52] LABS: Urine Blood Negative /uL (Negative); Urine Clarity Clear (Clear); Urine Color Light-Yellow (Yellow); Urine Protein, UAD Negative (Negative); Urine Specific Gravity 1.008 (1.001-1.035); Urine Squamous Epithelial Cell FEW /hpf (<5); Urine Urobilinogen Normal (Negative); Urine WBC 19 /HPF (0-3); Urine pH 5.5 (5.0-9.0)
[2025-02-05] MEDS: IOHEXOL 350 MG/ML 100ML IJ ONE (18:10)
--- NOTE | 2025-02-05 18:42 | DVH ---
CTA Chest with intravenous contrast INDICATION: sob COMPARISON: None TECHNIQUE: Multidetector spiral CTA of the chest was performed of the chest with intravenous contrast . PULMONARY ANGIOGRAPHY PROTOCOL was utilized using a bolus-tracking technique centered on the main p ulmonary artery. Axial, coronal and sagittal multiplanar and MIP reformats were performed. Radiation Dose : 1. Chest: Dose-length product is 1016 mGy*cm 70 mL of Omni 350 was injected The dose indicators for CT are the volume Computed Tomography (CT) Dose Index (CTDIvol) and the Dose Length Product (DLP), and are measured in units of mGy and mGy-cm, respectively. These indicators are not patient dose, but values generated from the CT scanner acquisition factors. The report includes radiation exposure data for exposures received during this examination. Findings: Pulmonary artery: No pulmonary embolism Lower neck: Normal thyroid. Lungs: Scattered nodular densities in the lingula and right lower lobe may reflect mild multifocal pn eumonia. Prominent paraseptal emphysema is seen. Heart/Vascular Structures: Normal heart size. No pericardial effusion. Lymph Nodes: No adenopathy Pleura: No pleural effusion or significant pneumothorax. Musculoskeletal: Surgical fixation hardware is seen in the lower thoracic spine. Chronic compression fracture is seen in the T12 vertebral body. Soft tissues: Normal. Upper abdomen: Limited portions of the upper abdomen are unremarkable. IMPRESSION: 1. No pulmonary embolism. 2. Scattered nodular densities in the lingula and right lower lobe may reflect mild multifocal pneumo ender.
[2025-02-05] MEDS ORDERED: DOCUSATE SOD 100 MG CAP PO PRN (20:15)
[2025-02-05] MEDS ORDERED: MORPHINE SULFATE INJ 2 MG/ml SYRG IV PRN ×2 (20:15)
[2025-02-05] MEDS ORDERED: CYCLOBENZAPRINE HCL 10 MG TAB PO PRN (20:15)
[2025-02-05] MEDS ORDERED: ONDANSETRON HCL 4 MG/2 ML VIAL IV PRN (20:15)
[2025-02-05] MEDS ORDERED: NITROGLYCERIN 0.4 MG SL TAB SL PRN (20:15)
[2025-02-05] MEDS ORDERED: DEXTROSE (50%) 50ML SYRG IV PRN (20:15)
[2025-02-05] MEDS ORDERED: ACETAMINOPHEN 325 MG TAB PO PRN (20:15)
[2025-02-05] MEDS: ACCU-CHEK COMFORT CURVE STRIP VI SCH (22:00)
--- NOTE | 2025-02-05 22:21 | ECG ---
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
[2025-02-05] MEDS: IPRATROPIUM BROM 0.5 MG/2.5ML INH SOL NEB SCH (22:24)
[2025-02-05] MEDS: ALBUTEROL SULF 2.5 MG/0.5ML(0.5%) NEB SOLN NEB SCH (22:24)
[2025-02-06] VITALS (32 sets, daily range): BP systolic 104–145; BP diastolic 42–81; PULSE 61–107; RESP 14–31; TEMP 97.6–98.2; O2SAT 95–100
[2025-02-06] MEDS: InsuLIN REG 1unit/0.01ml Soln (100units/ml) SC SCH (00:45)
[2025-02-06] MEDS: GABAPENTIN 100 MG CAP PO SCH (00:46)
--- NOTE | 2025-02-06 01:06 | DVHHP2 ---
MP GOYAL [employer] 02/06/25 0106: History of Present Illness Reason for Visit: Shortness of breath History of Present Illness 70-year-old male with past medical history of hypertension, multiple myeloma, DM, recent spine surgery presents with complaints of shortness of breath worsening over 1 week. Patient states he does not use oxygen at home. Endorses he gets very easily short of breath after walking short distances. Patient en dorses he is not very active. Also states he has a high salt intake and normally causes legs to swell. There are no complaints of fevers, chills, chest pain, dizziness, palpitations, nausea, vomiting Cardiovascular: HTN Heme/Onc: Cancer Musculoskeletal: Chronic low back pain Smoke: No ALCOHOL: none Drugs: None Lives: with Family Review of Systems Constitutional: Yes: Weakness, Malaise; No: Fever, Chills, Sweats, Other Eyes: No: Pain, Vision change, Conjunctivae inflammation, Eyelid inflammation, Other, Redness ENT: No: Ear pain, Ear discharge, Nose pain, Nose discharge, Nose congestion, Mouth pain, Mouth swelling, Throat pain, Throat swelling, Other Respiratory: Shortness of breath, SOB with excertion; No: Cough, Dry, Wheezing, Hemoptysis, Pleuritic Pain, Sputum, Wheezing, Other Cardiovascular: No: Chest Pain, Palpitations, Orthopnea, Paroxysmal Noc. Dyspnea, Edema, Lt Headedness, Other Gastrointestinal: No: Nausea, Vomiting, Abdominal Pain, Diarrhea, Constipation, Melena, Hematochezia, Other Genitourinary: No Dysuria, No Frequency, No Incontinence, No Hematuria, No Retention, No Other Musculoskeletal: No: other, neck pain, shoulder pain, arm pain, back pain, hand pain, leg pain, foot pain Skin: No: Rash, Lesions, Jaundice, Bruising, Other Neurological: No: Weakness, Numbness, Incoordination, Change in speech, Confusion, Seizures, Other Allergies: Coded Allergies: NO KNOWN ALLERGIES (Unverified , 07/16/22) Medications Current Medications Medications Dose Ordered Sig/Jonathan Route Start Time Stop Time Status Last Admin Dose Admin Docusate Sodium 100 mg BIDPRN PRN PO 02/05/25 20:15 Acetaminophen 650 mg Q6HP PRN PO 02/05/25 20:15 Acetaminophen/ Hydrocodone Bitart 1 tab Q6HPRN PRN PO 02/05/25 20:15 Ondansetron HCl 4 mg Q4HP PRN IV 02/05/25 20:15 Morphine Sulfate 2 mg Q4HPRN PRN IV 02/05/25 20:15 Nitroglycerin 0.4 mg Q5MINP PRN SL 02/05/25 20:15 Morphine Sulfate 2 mg Q30M PRN IV 02/05/25 20:15 Albuterol 2.5 mg Q4HWA NEB 02/05/25 22:00 02/05/25 22:24 2.5 MG Ipratropium Star 0.5 mg Q4HWA NEB 02/05/25 22:00 02/05/25 22:24 0.5 MG Ceftriaxone Sodium 50 ml @ 100 mls/hr DAILY IV 02/06/25 10:00 Azithromycin 250 ml @ 125 mls/hr DAILY IV 02/06/25 10:00 Cyclobenzaprine HCl 10 mg TIDPRN PRN PO 02/05/25 20:15 Gabapentin 100 mg TID PO 02/05/25 22:00 02/06/25 00:46 100 MG Diagnostic Test (Pha) 1 strip ACHS 02/05/25 22:00 02/05/25 22:00 1 STRIP Insulin Human Regular ACHS SC 02/05/25 22:00 02/06/25 00:45 3 UNITS Dextrose 50 ml UD PRN IV 02/05/25 20:15 Exam Vital Signs Vital Signs Date Time Temp Pulse Resp B/P (MAP) Pulse Ox O2 Delivery O2 Flow Rate FiO2 02/05/25 23:21 98.2 75 16 114/67 (83) 98 98.2 02/05/25 22:24 Oxymizer 6.0 02/05/25 22:24 N/A General Appearance: Alert, Oriented X3, Cooperative, moderate distress, Other (Obese) HEENT: Atraumatic, PERRLA, EOMI Respiratory: Other (Diminished air exchange. On high-flow oxygen) Cardiovascular: Regular rate, Normal S1, Normal S2 Abdominal: Normal bowel sounds, Soft, No tenderness Extremities: No clubbing, No cyanosis, Other (BLE trace edema) Skin: No rashes, No breakdown Neuro: Normal speech, Strength at 5/5 X4 ext Psych/Mental Status: Mental status NL, Mood NL Labs/Xrays Labs Test 02/06/25 00:34 02/05/25 17:17 02/05/25 14:15 02/05/25 12:59 Range/Units POC Glucose 188 H 70-106 mg/dl D-Dimer, Quantitative 0.33 0.0-0.49 mg/L FEU Urine Color Light-yellow Yellow Urine Clarity Clear Clear Urine pH 5.5 5.0-9.0 Urine Specific [place] 1.008 1.001-1.035 Urine Protein Negative Negative Urine Ketones Negative Negative Urine Blood Negative Negative /uL Urine Nitrite Negative Negative Urine Bilirubin Negative Negative Urine Urobilinogen Normal Negative mg/dL Urine Leukocyte Esterase 3+ Negative /uL Urine RBC 3 0 - 3 /hpf Urine Microscopic WBC 19 H 0-3 /HPF Urine Squamous Epithelial Cells Few <5 /hpf Urine Bacteria None seen None Seen /hpf Urine Glucose 1+ H Normal mg/dL Lactic Acid Level 2.0 0.4-2.0 mmol/L Test 02/05/25 11:12 Range/Units White Blood Count 7.5 4.4-10.8 10^3/uL Red Blood Count 3.90 L 4.5-5.90 10^6/uL Hemoglobin 13.5 13.5-17.5 g/dL Hematocrit 39.3 L 41.0-53.0 % Mean Corpuscular Volume 100.8 H 80.0-100.0 fL Mean Corpuscular Hemoglobin 34.5 H 28.0-32.0 pg Mean Corpuscular Hemoglobin Concent 34.2 32.0-36.0 g/dL Red Cell Distribution Width 17.0 H 11.8-14.3 % Platelet Count 92 L 140-450 10^3/uL Mean Platelet Volume 7.9 6.9-10.8 fL Neutrophils (%) (Auto) 37.0-80.0 % Lymphocytes (%) (Auto) 10.0-50.0 % Monocytes (%) (Auto) 0.0-12.0 % Basophils (%) (Auto) 0.0-2.0 % Neutrophils # (Auto) 1.6-8.6 10 ^3/uL Lymphocytes # (Auto) 0.4-5.4 10 ^3/uL Monocytes # (Auto) 0-1.3 10 ^3/uL Differential Total Cells Counted 100.0 100 Neutrophils % (Manual) 73 37.0-80.0 Band Neutrophils % (Manual) 9 Lymphocytes % (Manual) 11 10.0-50.0 Monocytes % (Manual) 7 0-12 Eosinophils % (Manual) 0 0-7 Basophils % (Manual) 0 0.0-2.0 Metamyelocytes % (manual) 0 Myelocytes % (Manual) 0 Promyelocytes % (Manual) 0 Blast Cells % (Manual) 0 Reactive Lymphocytes 0 Platelet Estimate Decreased Sodium Level 136 136-145 mmol/L Potassium Level 3.5 3.5-5.1 mmol/L Chloride Level 99 98-107 mmol/L Carbon Dioxide Level 26 20-31 mmol/L Anion Gap 11 5-15 Blood Urea Nitrogen 13 9-23 mg/dL Creatinine 0.67 L 0.700-1.30 mg/dL Glomerular Filtration Rate Calc 102 >90 mL/min BUN/Creatinine Ratio 19.4 10.0-20.0 Serum Glucose 158 H 74-106 mg/dL Calcium Level 8.8 8.7-10.4 mg/dL Magnesium Level 1.9 1.6-2.6 mg/dL Total Bilirubin 0.4 0.2-1.0 mg/dL Aspartate Amino Transferase (AST) 54 H <34 U/L Alanine Aminotransferase (ALT) 116 H 7-40 U/L Alkaline Phosphatase 147 H 46-116 U/L Troponin I High Sensitivity 6 </=54 ng/L B-Type Natriuretic Peptide 31.53 0-100 pg/mL Total Protein 5.4 L 5.7-8.2 g/dL Albumin 3.9 3.2-4.8 g/dL Assessment/Plan Assessment/Plan Acute respiratory failure with hypoxia Multifocal pneumonia UTI. Thrombocytopenia DM History multiple myeloma Plan Admit SDU Pulmonology consult. Bronchodilators. As needed supplemental O2 to maintain oxygen saturation greater than 93%. Incentive spirometer. Respiratory cultures pending. IV ABX Blood glucose checks with regular insulin sliding scale coverage. Monitor CBC, BMP, LA. Hold Chemical anticoagulation. DVT ppx SCD. Plan discussed with: Patient My Orders Orders - MP GOYAL NP Procedure Category Date Status Time Admit ADMIT 02/05/25 Transmitted 20:15 Code Status CODE 02/05/25 Transmitted 20:15 Review Orders With RENETTA 02/05/25 In Process Adm. 20:15 Encourage Activity As RENETTA 02/05/25 In Process Tolerate 20:15 Consistent DIET 02/06/25 Transmitted Carb(Ccho)Diabetes Breakfast Oxygen By Face Mask RT 02/05/25 Transmitted 20:15 Docusate Sodium PHA 02/05/25 In Process Capsule (Colace 20:15 Acetaminophen Tablet PHA 02/05/25 In Process (Tylenol Tablet) 20:15 Notify Of Changes RENETTA 02/05/25 In Process From Base 20:15 Advance Directive RENETTA 02/05/25 In Process 20:15 Echo 2d Mode Cardiac US 02/05/25 Logged DOP 20:15 Basic Metabolic Panel LAB 02/06/25 Logged 05:00 Basic Metabolic Panel LAB 02/07/25 Verified 05:00 Basic Metabolic Panel LAB 02/08/25 Verified 05:00 Basic Metabolic Panel LAB 02/09/25 Verified 05:00 Basic Metabolic Panel LAB 02/10/25 Verified 05:00 Complete Blood Count LAB 02/06/25 Logged 05:00 Complete Blood Count LAB 02/07/25 Verified 05:00 Complete Blood Count LAB 02/08/25 Verified 05:00 Complete Blood Count LAB 02/09/25 Verified 05:00 Complete Blood Count LAB 02/10/25 Verified 05:00 Patient Condition ORDERS 02/05/25 Transmitted 20:15 Allergies RENETTA 02/05/25 In Process 20:15 Hydrocodone-Acet PHA 02/05/25 In Process 5/325mg Tab ([place] 20:15 Ondansetron Hcl PHA 02/05/25 In Process (Zofran) 20:15 Morphine Sulfate PHA 02/05/25 In Process Injection 20:15 Nitroglycerin PHA 02/05/25 In Process Sublingual (Ntrostat 20:15 Morphine Sulfate PHA 02/05/25 In Process Injection 20:15 Stat Ekg For Chest RENETTA 02/05/25 In Process Pain 20:15 Notify Md Of Changes RENETTA 02/05/25 In Process From Base 20:15 Air Pollution Analyst For RENETTA 02/05/25 In Process 24 Hours 20:15 Emergency Dysrhythmia RENETTA 02/05/25 In Process Protocol 20:15 Rhythm Strips Once RENETTA 02/05/25 In Process Every Shift 20:15 Oxygen By Nasal RT 02/05/25 Transmitted Cannula 20:15 Albuterol Medneb PHA 02/05/25 In Process (Ventolin Medneb) 22:00 Ipratropium Medneb PHA 02/05/25 In Process (Atrovent Medneb) 22:00 Ceftriaxone 1gm/50ml PHA 02/06/25 In Process D5w (Rocephin) 10:00 Azithromycin 500mg/ PHA 02/06/25 In Process 250ml (Zithromax 50 10:00 *Consult CONS 02/05/25 Transmitted / 20:15 Cyclobenzaprine PHA 02/05/25 In Process Tablet (Flexeril 20:15 Gabapentin Capsule PHA 02/05/25 In Process (Neurontin Capsule) 22:00 Glucose Blood PHA 02/05/25 In Process (Accu-Chek Comfort 22:00 Insulin R (Human) PHA 02/05/25 In Process (Insulin R) 22:00 Dextrose 50% Syringe PHA 02/05/25 In Process 20:15 Lactic Acid W/ Reflex LAB 02/06/25 Logged Order 04:00 Magnesium LAB 02/06/25 Logged 05:00 Date of Service: Feb 06, 2025 Billing Provider: GIOVANNI BURKS MD Common Visit Codes: NOT BILLABLE GIOVANNI BURKS MD 02/06/25 1541: Review of Systems Allergies: Coded Allergies: NO KNOWN ALLERGIES (Unverified , 07/16/22) Additional Comments Additional Comments Additional Comments 70-year-old male with a known history of diabetes mellitus type 2, hypertension, morbid obesity classIII, previous history of thoracolumbar spine surgery at T11 /T12 and L1 in September this year presented to the hospital with increasing shortness a breath found to have 1. Acute hypoxic respiratory failure requiring 6 L of oxygen 2. Multifocal pneumonia 3. Morbid obesity classIII, suspect obesity hypoventilation syndrome 4. Hypertension 5. Diabetes mellitus type 2 6. Multiple myeloma currently on chemotherapy -IV antibiotics, O2 supplementation, add med nebs,- Obtain 2D echo and cardiology and pulmonary consultation. MP GOYAL NP Feb 06, 2025 01:06 GIOVANNI BURKS MD Feb 06, 2025 15:41
[2025-02-06 04:52] LABS: Mean Corpuscular Hgb Conc. 34.5 g/dL (32.0-36.0)
[2025-02-06 04:54] LABS: Potassium 3.6 mmol/L (3.5-5.1); Sodium 136 mmol/L (136-145)
[2025-02-06 04:55] LABS: Anion Gap 7 (5-15)
[2025-02-06 04:56] LABS: Calcium 8.9 mg/dL (8.7-10.4)
[2025-02-06 05:00] LABS: BUN/Creatinine Ratio 18.2 (10.0-20.0); Blood Urea Nitrogen 14 mg/dL (9-23)
[2025-02-06 05:01] LABS: Magnesium 2.2 mg/dL (1.6-2.6)
[2025-02-06 05:04] LABS: Carbon Dioxide 33 mmol/L (20-31); Chloride 96 mmol/L (98-107); Glucose 150 mg/dL (74-106)
[2025-02-06 05:07] LABS: Hematocrit 37.2 % (41.0-53.0); Hemoglobin 12.8 g/dL (13.5-17.5); Mean Corpuscular Volume 101.3 fL (80.0-100.0); Platelet Count (auto) 84 10^3/uL (140-450); Red Blood Cells 3.67 10^6/uL (4.5-5.90); White Blood Cell 5.3 10^3/uL (4.4-10.8)
[2025-02-06 05:12] LABS: Basophils % (manual) 0 (0.0-2.0); Blast Cells 0; Metamyelocytes % 0; Myelocytes % 0; Promyelocytes % 0; Reactive Lymphocytes 0
[2025-02-06 05:14] LABS: Lactic Acid w/Reflex 2.2 mmol/L (0.4-2.0)
[2025-02-06] MEDS: SODIUM CHLORIDE 0.9% 1,000 ML IV ONE (05:30)
[2025-02-06 05:59] LABS: Anisocytosis Slight; Band Neutrophils % (manual) 35; Eosinophils % (manual) 1 (0-7); Lymphocytes % (manual) 6 (10.0-50.0); Macrocytosis Slight; Monocytes % (manual) 9 (0-12); Platelet Estimate Decreased; Polychromasia Slight
[2025-02-06] MEDS: cefTRIAXone 1GM/50ML D5W 50 ML IV SCH (08:58)
[2025-02-06] MEDS: AZITHROMYCIN 500MG/ 250ML 250 ML IV SCH (10:18)
[2025-02-06] MEDS: FUROSEMIDE 40 MG/4 ML VIAL IV ONE (11:42)
[2025-02-06 12:47] LABS: COVID19 ANTIGEN SOFIA FIA NEGATIVE (NEGATIVE); Rapid Influenza A Negative (Negative); Rapid Influenza B Negative (Negative)
--- NOTE | 2025-02-06 16:24 | DVHINCON2 ---
Date of service: Feb 05, 2025 Referring Physician Dajuan Brown Np Reason for Consultation Acute respiratory failure History of Present Illness History Source: Patient Exam Limitations: No limitations HPI Patient is a 70-year old gentleman with a history of multiple myeloma undergoing chemotherapy and diabetes who presented with shortness of breath and swelling of the lower extremities x1 week. Was seen in the emergency room where CTA of the chest was negative for acute pulmonary embolism however demonstrated ground- glass opacities consistent with pneumonia. Patient was started on IV antibiotics and pulmonology was consulted to assist in management. Home Meds Active Scripts Hydrocodone-Acetaminophen (Hydrocodone Bitartrate/AC 10-325 mg) 1 Tab Tab, 2 TAB PO Q6HPRN PRN for 14 Days, #112 TAB Prov:ETHAN GONG GATE WATCH 10/08/24 Docusate Sodium (Docusate Sodium) 100 Mg Cap, 100 MG PO BID for 14 Days, #28 CAP Prov:ETHAN GONG GATE WATCH 10/08/24 Cyclobenzaprine HCl (Cyclobenzaprine Hydrochlo) 10 Mg Tab, 10 MG PO TID for 30 Days, #90 TAB Prov:ETHAN GONG GATE WATCH 10/08/24 Reported Medications Ergocalciferol (Vitamin D) 50,000 Unit Cap, 1 CAP PO QWEEKLY 10/05/24 Acyclovir (Acyclovir) 400 Mg Tab, 1 TAB PO BID 10/05/24 Prednisone (PREDNISONE) Unknown Strength Tb, PO DAILY, #360 TAB 3 Refills 12/30/23 Morphine Sulfate (Morphine Sulfate) Unknown Strength Tab, PO, TAB 12/30/23 Metformin Hydrochloride (Metformin Hcl) Unknown Strength Tab, PO IBID for 30 Days, MG 12/30/23 Ibuprofen (Ibuprofen) Unknown Strength Cap, PO, MG 12/30/23 Hydrocodone-Acetaminophen (Hydrocodone Bitartrate/AC 5-325 mg) Unknown Strength Tab, PO, TAB 12/30/23 Gabapentin (Gabapentin) Unknown Strength Cap, PO for 30 Days, MG 12/30/23 Dexamethasone (Dexamethasone) Unknown Strength Tab, PO, MG 12/30/23 Cyclobenzaprine Hcl (Cyclobenzaprine Hcl) Unknown Strength Tab, PO Q8HP for 30 Days, MG 12/30/23 Loratadine (Claritin) Unknown Strength Tab, PO DAILY, #30 TAB 5 Refills 12/30/23 Aspirin (Aspir-Low) 81 Mg Tab, 81 MG PO DAILY for 30 Days, MG 12/30/23 Sulfamethoxazole-Trimethoprim (Bactrim) 1 Tab Tab, 1 TAB PO DAILY, MG 12/30/23 Amlodipine Besylate (NORVASC TABLET) Unknown Strength Tb, PO DAILY, #30 TAB 5 R efills 12/30/23 Lisinopril (Lisinopril) 2.5 Mg Tab, 2.5 MG PO DAILY, TAB 07/16/22 Past Medical History Cardiac: No pertinent Hx Pulmonary: No pertinent Hx Central Nervous System: No pertinent Hx GI: No pertinent Hx Hemotology/Oncology: Cancer Hepatobiliary: No pertinent Hx Psychiatric: No pertinent Hx Musculoskeletal: No pertinent Hx Rheumotologic: No pertinent Hx Infectious Disease: No peritnent Hx ENT: No pertinent Hx Renal/: No pertinent Hx Endocrine: NIDDM Dermatology: No pertinent Hx Family History: Cancer, DM Patient Family History: Diabetes mellitus G8 MOTHER FH: cirrhosis FH: prostate cancer G8 FATHER Smoker: No Hx (Negative) Alocohol: None Drugs: None Lives with: With family Domestic Violence: Neg Review of Systems Constitutional: No symptom reported Ears, Nose, & Throat: No symptom reported Eyes: No symptom reported Pulmonary/Respiratory: Dyspnea Cardiovascular: No symptom reported Gastrointestinal: No symptom reported Genitourinary: No symptom reported Musculoskeletal: No symptom reported Skin: No symptom reported Psychiatric: No symptom reported Endocrine: No symptom reported Hemotologic/Lymphatic: No symptom reported H&P Exam Vital Signs Vital Signs Date Time Temp Pulse Resp B/P (MAP) Pulse Ox O2 Delivery O2 Flow Rate FiO2 02/06/25 14:31 87 16 99 02/06/25 14:25 Oxymizer 6.0 02/06/25 14:25 N/A 02/06/25 12:01 97.7 145/81 (102) 97.7 General Appeara: Well developed, Well nourished, Normal Appearance Head Exam: Normal inspection Neck Exam: Normal inspection, Non-tender, Normal alignment Eye Exam: bilateral eye Normal inspection, bilateral eye PERRL, bilateral eye EOMI Ear Exam: bilateral ear Auricle normal, bilateral ear Canal normal, bilateral ear TM normal Nasal Exam: Normal inspection Mouth: Normal Inspection Pulmonary/Respiratory: Decreased breath sounds Cardiovascular/Chest: Normal inspection Peripheral Pulses: 4+ Radial (R), 4+ Radial (L), 4+ Brachial (R), 4+ Brachial (L) Abdominal Exam: Normal bowel sounds Labs/Xrays Labs Test 02/06/25 11:50 02/06/25 11:41 02/06/25 04:04 02/05/25 17:17 Range/Units Influenza Type A Antigen Negative Negative Influenza Type B Antigen Negative Negative SARS-CoV-2 Antigen (Rapid) Negative NEGATIVE POC Glucose 204 H 70-106 mg/dl White Blood Count 5.3 # 4.4-10.8 10^3/uL Red Blood Count 3.67 L 4.5-5.90 10^6/uL Hemoglobin 12.8 L 13.5-17.5 g/dL Hematocrit 37.2 L 41.0-53.0 % Mean Corpuscular Volume 101.3 H 80.0-100.0 fL Mean Corpuscular Hemoglobin 35.0 H 28.0-32.0 pg Mean Corpuscular Hemoglobin Concent 34.5 32.0-36.0 g/dL Red Cell Distribution Width 17.0 H 11.8-14.3 % Platelet Count 84 L 140-450 10^3/uL Mean Platelet Volume 7.7 6.9-10.8 fL Neutrophils (%) (Auto) 37.0-80.0 % Lymphocytes (%) (Auto) 10.0-50.0 % Monocytes (%) (Auto) 0.0-12.0 % Basophils (%) (Auto) 0.0-2.0 % Neutrophils # (Auto) 1.6-8.6 10 ^3/uL Lymphocytes # (Auto) 0.4-5.4 10 ^3/uL Monocytes # (Auto) 0-1.3 10 ^3/uL Differential Total Cells Counted 100.0 100 Neutrophils % (Manual) 49 37.0-80.0 Band Neutrophils % (Manual) 35 Lymphocytes % (Manual) 6 L 10.0-50.0 Monocytes % (Manual) 9 0-12 Eosinophils % (Manual) 1 0-7 Basophils % (Manual) 0 0.0-2.0 Metamyelocytes % (manual) 0 Myelocytes % (Manual) 0 Promyelocytes % (Manual) 0 Blast Cells % (Manual) 0 Reactive Lymphocytes 0 Platelet Estimate Decreased Polychromasia Slight Anisocytosis (manual) Slight Macrocytosis Slight Sodium Level 136 136-145 mmol/L Potassium Level 3.6 3.5-5.1 mmol/L Chloride Level 96 L 98-107 mmol/L Carbon Dioxide Level 33 H 20-31 mmol/L Anion Gap 7 5-15 Blood Urea Nitrogen 14 9-23 mg/dL Creatinine 0.77 0.700-1.30 mg/dL Glomerular Filtration Rate Calc 98 >90 mL/min BUN/Creatinine Ratio 18.2 10.0-20.0 Serum Glucose 150 H 74-106 mg/dL Lactic Acid Level 2.2 *H 0.4-2.0 mmol/L Calcium Level 8.9 8.7-10.4 mg/dL Magnesium Level 2.2 1.6-2.6 mg/dL D-Dimer, Quantitative 0.33 0.0-0.49 mg/L FEU Test 02/05/25 14:15 02/05/25 11:12 Range/Units Urine Color Light-yellow Yellow Urine Clarity Clear Clear Urine pH 5.5 5.0-9.0 Urine Specific [place] 1.008 1.001-1.035 Urine Protein Negative Negative Urine Ketones Negative Negative Urine Blood Negative Negative /uL Urine Nitrite Negative Negative Urine Bilirubin Negative Negative Urine Urobilinogen Normal Negative mg/dL Urine Leukocyte Esterase 3+ Negative /uL Urine RBC 3 0 - 3 /hpf Urine Microscopic WBC 19 H 0-3 /HPF Urine Squamous Epithelial Cells Few <5 /hpf Urine Bacteria None seen None Seen /hpf Urine Glucose 1+ H Normal mg/dL Total Bilirubin 0.4 0.2-1.0 mg/dL Aspartate Amino Transferase (AST) 54 H <34 U/L Alanine Aminotransferase (ALT) 116 H 7-40 U/L Alkaline Phosphatase 147 H 46-116 U/L Troponin I High Sensitivity 6 </=54 ng/L B-Type Natriuretic Peptide 31.53 0-100 pg/mL Total Protein 5.4 L 5.7-8.2 g/dL Albumin 3.9 3.2-4.8 g/dL Microbiology Date/Time Source Procedure Growth Status 02/06/25 01:50 Nose MRSA Screen - Final Complete 02/05/25 14:15 Voided Urine Urine Culture - Preliminary Resulted 02/05/25 12:22 Sputum Gram Stain - Final Resulted 02/05/25 12:22 Sputum Respiratory Culture - Preliminary Resulted 02/05/25 11:21 Blood Blood Culture - Preliminary NO GROWTH AFTER 24 HOURS OF INCUBATION. Resulted Assessment/Plan Plan Impression Acute hypoxemic respiratory failure Multifocal pneumonia Multiple myeloma Atelectasis Patient seen and examined Events Low oxygen requirements On 2 liters nasal cannula Vital signs stable Labs and imaging reviewed CTA negative for acute PE Show ground-glass opacities Management Supplemental oxygen Titrate to maintain sats 90% or above Incentive spirometry Antibiotics F/u cultures Bronchodilators Monitor renal function Monitor electrolytes Supplement as needed Obtain ultrasound of the lower extremities to rule out clots DVT prophylaxis Plan discussed with: Patient ULISSES LOVELACE MD Feb 06, 2025 16:24
--- NOTE | 2025-02-06 16:25 | DVHPN2 ---
Progress Note - Dictate Date Seen: Feb 06, 2025 Medical Necessity Reason Pt with a Central, PICC or Fol: No vital signs Vital Sign Date Time Temp Pulse Resp B/P (MAP) Pulse Ox O2 Delivery O2 Flow Rate FiO2 02/06/25 14:31 87 16 99 02/06/25 14:25 Oxymizer 6.0 02/06/25 14:25 N/A 02/06/25 12:01 97.7 145/81 (102) 97.7 Total Intake and Output 02/05/25 02/05/25 02/06/25 15:00 23:00 07:00 Intake Total 100 ml 250 ml Output Total 1400 ml 475 ml Balance -1400 ml 100 ml -225 ml medications Current Medications Medications Dose Ordered Sig/Jonathan Route Start Time Stop Time Status Last Admin Dose Admin Docusate Sodium 100 mg BIDPRN PRN PO 02/05/25 20:15 Acetaminophen 650 mg Q6HP PRN PO 02/05/25 20:15 Acetaminophen/ Hydrocodone Bitart 1 tab Q6HPRN PRN PO 02/05/25 20:15 Ondansetron HCl 4 mg Q4HP PRN IV 02/05/25 20:15 Morphine Sulfate 2 mg Q4HPRN PRN IV 02/05/25 20:15 Nitroglycerin 0.4 mg Q5MINP PRN SL 02/05/25 20:15 Morphine Sulfate 2 mg Q30M PRN IV 02/05/25 20:15 Ceftriaxone Sodium 50 ml @ 100 mls/hr DAILY IV 02/06/25 10:00 02/06/25 08:58 100 MLS/HR Azithromycin 250 ml @ 125 mls/hr DAILY IV 02/06/25 10:00 02/06/25 10:18 125 MLS/HR Cyclobenzaprine HCl 10 mg TIDPRN PRN PO 02/05/25 20:15 Gabapentin 100 mg TID PO 02/05/25 22:00 02/06/25 13:18 100 MG Diagnostic Test (Pha) 1 strip ACHS 02/05/25 22:00 02/06/25 11:42 1 STRIP Insulin Human Regular ACHS SC 02/05/25 22:00 02/06/25 11:47 4 UNITS Dextrose 50 ml UD PRN IV 02/05/25 20:15 Enoxaparin Sodium 40 mg DAILY SC 02/07/25 10:00 Furosemide 40 mg DAILY IV 02/07/25 10:00 Albuterol 2.5 mg Q4HWA NEB 02/06/25 18:00 Ipratropium [place] 0.5 mg Q4HWA NEB 02/06/25 18:00 laboratory and microbiology Laboratory Tests 02/06/25 04:04 Test 02/06/25 04:04 Range/Units Serum Glucose 150 H 74-106 mg/dL Assessment/Plan Impression Acute hypoxemic respiratory failure Multifocal pneumonia Multiple myeloma Atelectasis Patient seen and examined Events On 6 liters oxymizer No acute events Labs and imaging reviewed CTA demonstrates ground-glass opacities, no evidence of PE Management Supplemental oxygen Titrate to maintain sats 90% or above Incentive spirometry Continue antibiotics F/u cultures Bronchodilators Monitor renal function Monitor electrolytes Supplement as needed Obtain ultrasound of the lower extremities to rule out clots DVT prophylaxis Plan discussed with: Patient ULISSES LOVELACE MD Feb 06, 2025 16:25
--- NOTE | 2025-02-06 17:11 | DVH ---
Bilateral lower extremity venous duplex Clinical History: swelling Comparison: None Technique: Duplex Doppler evaluation of the deep venous systems of both lower extremities from the common femora l veins to the popliteal veins including color Doppler and spectral/pulsed waveform analysis was perf ormed. Findings: RIGHT SIDE: The common femoral vein demonstrates appropriate compressibility and waveform variability. There is compressibility/patency of the great saphenous vein at the proximal thigh. The femoral vein demonstrates appropriate compressibility and waveform variability. The deep femoral vein demonstrates appropriate compressibility and waveform variability. The popliteal vein demonstrates appropriate compressibility and waveform variability. There is normal compressibility at the tibioperoneal trunk. LEFT SIDE: The common femoral vein demonstrates appropriate compressibility and waveform variability. There is compressibility/patency of the great saphenous vein at the proximal thigh. The femoral vein demonstrates appropriate compressibility and waveform variability. The deep femoral vein demonstrates appropriate compressibility and waveform variability. The popliteal vein demonstrates appropriate compressibility and waveform variability. There is normal compressibility at the tibioperoneal trunk. Impression: 1. No right or left femoropopliteal venous thrombosis.
[2025-02-06] MEDS: IPRATROPIUM BROM 0.5 MG/2.5ML INH SOL NEB SCH (18:28)
[2025-02-06] MEDS: ALBUTEROL SULF 2.5 MG/0.5ML(0.5%) NEB SOLN NEB SCH (18:28)
[2025-02-07] VITALS (16 sets, daily range): BP systolic 109–127; BP diastolic 54–76; PULSE 70–90; RESP 18–22; TEMP 96.7–98.6; O2SAT 93–100
[2025-02-07 06:46] LABS: Hemoglobin 12.2 g/dL (13.5-17.5)
[2025-02-07 06:49] LABS: Hematocrit 34.9 % (41.0-53.0); Mean Corpuscular Hemoglobin 35.2 pg (28.0-32.0); Mean Corpuscular Hgb Conc. 34.9 g/dL (32.0-36.0); Mean Corpuscular Volume 100.8 fL (80.0-100.0); Platelet Count (auto) 73 10^3/uL (140-450); Red Blood Cells 3.46 10^6/uL (4.5-5.90); Red Cell Distribution Width 16.7 % (11.8-14.3); White Blood Cell 4.2 10^3/uL (4.4-10.8)
[2025-02-07 06:51] LABS: Anion Gap 7 (5-15); Chloride 101 mmol/L (98-107); Potassium 3.5 mmol/L (3.5-5.1); Sodium 140 mmol/L (136-145)
[2025-02-07 06:53] LABS: Basophils % (manual) 0 (0.0-2.0); Blast Cells 0; Metamyelocytes % 0; Myelocytes % 0; Promyelocytes % 0; Reactive Lymphocytes 0
[2025-02-07 06:57] LABS: BUN/Creatinine Ratio 20.6 (10.0-20.0); Blood Urea Nitrogen 13 mg/dL (9-23)
[2025-02-07 06:58] LABS: Carbon Dioxide 32 mmol/L (20-31); Glucose 118 mg/dL (74-106)
[2025-02-07 07:25] LABS: Band Neutrophils % (manual) 7; Eosinophils % (manual) 4 (0-7); Lymphocytes % (manual) 9 (10.0-50.0); Monocytes % (manual) 4 (0-12)
[2025-02-07 07:27] LABS: Macrocytosis Slight
[2025-02-07 07:28] LABS: Platelet Estimate Decreased
[2025-02-07] MEDS: ENOXAPARIN SOD 40 MG/0.4 ML SYRINGE SC SCH (08:21)
[2025-02-07] MEDS: FUROSEMIDE 40 MG/4 ML VIAL IV SCH (09:24)
--- NOTE | 2025-02-07 16:05 | DVHPN2 ---
Subjective Patient is complaining of shortness of breaths currently on 2 L of oxygen by continuous nasal cannula. Changes from previous H/P or p: No Changes Eyes: No Pain, No Vision change, No Conjunctivae inflammation, No Eyelid inflammation, No Other, No Redness ENT: No Ear pain, No Ear discharge, No Nose pain, No Nose discharge, No Nose congestion, No Mouth pain, No Mouth swelling, No Throat pain, No Throat swelling, No Other Cardiovascular: No Chest Pain, No Palpitations, No Orthopnea, No Paroxysmal Noc. Dyspnea, No Edema, No Lt Headedness, No Other Respiratory: No Cough, No Dry; Shortness of breath, SOB with excertion; No Wheezing, No Hemoptysis, No Pleuritic Pain, No Sputum, No Other Gastrointestinal: No Nausea, No Vomiting, No Abdominal Pain, No Diarrhea, No Constipation, No Melena, No Hematochezia, No Other Genitourinary: No Dysuria, No Frequency, No Incontinence, No Hematuria, No Retention, No Other Musculoskeletal: No other, No neck pain, No shoulder pain, No arm pain, No back pain, No hand pain, No leg pain, No foot pain Skin: No Rash, No Lesions, No Jaundice, No Bruising, No Other Objective Vitals Vital Signs Date Time Temp Pulse Resp B/P (MAP) Pulse Ox O2 Delivery O2 Flow Rate FiO2 02/07/25 15:00 71 18 100 02/07/25 13:00 98.6 114/72 (86) 98.6 02/07/25 08:00 Oxymizer 6 N/A Intake/Output Intake and Output 02/07/25 07:00 Intake Total 2430 ml Output Total 2850 ml Balance -420 ml Intake Oral 1280 ml IV Total 1150 ml Output Urine Total 2850 ml Exam HEENT pupils are reactive Neck is supple CV is S1-S2 regular rate and rhythm Respiratory diminished breath sounds bases GI positive bowel sound Extremity no edema [employer] no motor deficit Medications Current Medications Medications Dose Ordered Sig/Jonathan Route Start Time Stop Time Status Last Admin Dose Admin Docusate Sodium 100 mg BIDPRN PRN PO 02/05/25 20:15 Acetaminophen 650 mg Q6HP PRN PO 02/05/25 20:15 Acetaminophen/ Hydrocodone Bitart 1 tab Q6HPRN PRN PO 02/05/25 20:15 Ondansetron HCl 4 mg Q4HP PRN IV 02/05/25 20:15 Morphine Sulfate 2 mg Q4HPRN PRN IV 02/05/25 20:15 Nitroglycerin 0.4 mg Q5MINP PRN SL 02/05/25 20:15 Morphine Sulfate 2 mg Q30M PRN IV 02/05/25 20:15 Ceftriaxone Sodium 50 ml @ 100 mls/hr DAILY IV 02/06/25 10:00 02/07/25 08:34 100 MLS/HR Azithromycin 250 ml @ 125 mls/hr DAILY IV 02/06/25 10:00 02/07/25 09:28 125 MLS/HR Cyclobenzaprine HCl 10 mg TIDPRN PRN PO 02/05/25 20:15 Gabapentin 100 mg TID PO 02/05/25 22:00 02/07/25 14:27 100 MG Diagnostic Test (Pha) 1 strip ACHS 02/05/25 22:00 02/07/25 12:21 1 STRIP Insulin Human Regular ACHS SC 02/05/25 22:00 02/07/25 12:24 2 UNITS Dextrose 50 ml UD PRN IV 02/05/25 20:15 Enoxaparin Sodium 40 mg DAILY SC 02/07/25 10:00 Furosemide 40 mg DAILY IV 02/07/25 10:00 02/07/25 09:24 40 MG Albuterol 2.5 mg Q4HWA [facility] 02/06/25 18:00 02/07/25 14:52 2.5 MG Ipratropium [place] 0.5 mg Q4HWA [facility] 02/06/25 18:00 02/07/25 14:52 0.5 MG Laboratory Results Laboratory Tests 02/07/25 05:15 Chemistry Test 02/07/25 05:15 Calcium Level 9.0 mg/dL (8.7-10.4) Urinalysis Test 02/05/25 14:15 Urine Color Light-yellow (Yellow) Urine Clarity Clear (Clear) Urine pH 5.5 (5.0-9.0) Urine Specific [place] 1.008 (1.001-1.035) Urine Protein Negative (Negative) Urine Ketones Negative (Negative) Urine Blood Negative /uL (Negative) Urine Nitrite Negative (Negative) Urine Bilirubin Negative (Negative) Urine Urobilinogen Normal mg/dL (Negative) Urine Leukocyte Esterase 3+ /uL (Negative) Urine RBC 3 /hpf (0 - 3) Urine Microscopic WBC 19 /HPF (0-3) H Urine Squamous Epithelial Cells Few /hpf (<5) Urine Bacteria None seen /hpf (None Seen) Urine Glucose 1+ mg/dL (Normal) H Microbiology Microbiology Date/Time Source Procedure Growth Status 02/06/25 01:50 Nose MRSA Screen - Final Complete 02/05/25 14:15 Voided Urine Urine Culture - Final Complete 02/05/25 12:22 Sputum Gram Stain - Final Resulted 02/05/25 12:22 Respiratory Culture - Preliminary Klebsiella pneumoniae Resulted 02/05/25 11:21 Blood Blood Culture - Preliminary NO GROWTH AFTER 48 HOURS OF INCUBATION. Resulted Assessment/Plan Assessment/Plan l Comments 70-year-old male with a known history of diabetes mellitus type 2, hypertension, morbid obesity classIII, previous history of thoracolumbar spine surgery at T11/T12 and L1 in September this year presented to the hospital with increasing shortness a breath found to have 1. Acute hypoxic respiratory failure currently on nasal cannula by 2 L 2. Multifocal pneumonia on IV antibiotics 3. Morbid obesity classIII, suspect obesity hypoventilation syndrome 4. Hypertension 5. Diabetes mellitus type 2 6. Multiple myeloma currently on chemotherapy -continue IV antibiotics, med nebs, Solu-Medrol, assess for home oxygen requirement -discharge Plan discussed with: Patient My Orders Orders - GIOVANNI BURKS MD Procedure Category Date Status Time Transfer Orders XFER 02/06/25 Transmitted 17:34 Pt Request For Service PT 02/07/25 Logged 15:34 Date of Service: Feb 07, 2025 Billing Provider: GIOVANNI BURKS MD Common Visit Codes: NOT BILLABLE GIOVANNI BURKS MD Feb 07, 2025 16:05
[2025-02-07] MEDS: methylPREDNISolone SOD SUCC 125 MG/2 ML VL IV SCH (17:26)
--- NOTE | 2025-02-07 19:02 | DVHPN2 ---
Progress Note - Dictate Date Seen: Feb 07, 2025 Medical Necessity Reason Pt with a Central, PICC or Fol: No vital signs Vital Sign Date Time Temp Pulse Resp B/P (MAP) Pulse Ox O2 Delivery O2 Flow Rate FiO2 02/07/25 16:37 97.9 84 20 111/63 (79) 97 97.9 02/07/25 08:00 Oxymizer 6 N/A Total Intake and Output 02/06/25 02/06/25 02/07/25 15:00 23:00 07:00 Intake Total 1150 ml 980 ml 300 ml Output Total 2550 ml 300 ml Balance 1150 ml -1570 ml 0 ml medications Current Medications Medications Dose Ordered Sig/Jonathan Route Start Time Stop Time Status Last Admin Dose Admin Docusate Sodium 100 mg BIDPRN PRN PO 02/05/25 20:15 Acetaminophen 650 mg Q6HP PRN PO 02/05/25 20:15 Acetaminophen/ Hydrocodone Bitart 1 tab Q6HPRN PRN PO 02/05/25 20:15 Ondansetron HCl 4 mg Q4HP PRN IV 02/05/25 20:15 Morphine Sulfate 2 mg Q4HPRN PRN IV 02/05/25 20:15 Nitroglycerin 0.4 mg Q5MINP PRN SL 02/05/25 20:15 Morphine Sulfate 2 mg Q30M PRN IV 02/05/25 20:15 Ceftriaxone Sodium 50 ml @ 100 mls/hr DAILY IV 02/06/25 10:00 02/07/25 08:34 100 MLS/HR Azithromycin 250 ml @ 125 mls/hr DAILY IV 02/06/25 10:00 02/07/25 09:28 125 MLS/HR Cyclobenzaprine HCl 10 mg TIDPRN PRN PO 02/05/25 20:15 Gabapentin 100 mg TID PO 02/05/25 22:00 02/07/25 14:27 100 MG Diagnostic Test (Pha) 1 strip ACHS 02/05/25 22:00 02/07/25 17:26 1 STRIP Insulin Human Regular ACHS SC 02/05/25 22:00 02/07/25 17:01 3 UNITS Dextrose 50 ml UD PRN IV 02/05/25 20:15 Enoxaparin Sodium 40 mg DAILY SC 02/07/25 10:00 Furosemide 40 mg DAILY IV 02/07/25 10:00 02/07/25 09:24 40 MG Albuterol 2.5 mg Q4HWA [facility] 02/06/25 18:00 02/07/25 14:52 2.5 MG Ipratropium [place] 0.5 mg Q4HWA [facility] 02/06/25 18:00 02/07/25 14:52 0.5 MG Methylprednisolone Sodium Succinate 60 mg Q8HR IV 02/07/25 16:15 02/07/25 17:26 60 MG laboratory and microbiology Laboratory Tests 02/07/25 05:15 Test 02/07/25 05:15 Range/Units Serum Glucose 118 H 74-106 mg/dL Assessment/Plan Impression Acute hypoxemic respiratory failure Multifocal pneumonia Multiple myeloma Atelectasis Patient seen and examined Events Low oxygen requirements On 4 liters nasal cannula Improving with diuresis Labs and imaging reviewed CTA demonstrates ground-glass opacities, no evidence of PE Management Supplemental oxygen Titrate to maintain sats 90% or above Incentive spirometry Continue antibiotics F/u cultures Bronchodilators Diurese Monitor renal function Monitor electrolytes Supplement as needed DVT prophylaxis Plan discussed with: Patient ULISESS LOVELACE MD Feb 07, 2025 19:02
[2025-02-08] VITALS (12 sets, daily range): BP systolic 125–147; BP diastolic 74–89; PULSE 58–86; RESP 18–20; TEMP 96–98.3; O2SAT 96–100
[2025-02-08 07:33] LABS: Chloride 102 mmol/L (98-107); Potassium 4.2 mmol/L (3.5-5.1); Sodium 139 mmol/L (136-145)
[2025-02-08 07:34] LABS: Anion Gap 8 (5-15); Calcium 9.6 mg/dL (8.7-10.4); Carbon Dioxide 29 mmol/L (20-31)
[2025-02-08 07:39] LABS: BUN/Creatinine Ratio 23.1 (10.0-20.0); Blood Urea Nitrogen 15 mg/dL (9-23); Glucose 154 mg/dL (74-106)
[2025-02-08 07:41] LABS: Basophils # (auto) 0 10 ^3/uL (0-0.2); Basophils % (auto) 0.1 % (0.0-2.0); Eosinophils # (auto) 0 10 ^3/uL (0-0.8); Eosinophils % (auto) 0.1 % (0.0-7.0); Hematocrit 37.1 % (41.0-53.0); Hemoglobin 12.7 g/dL (13.5-17.5); Lymphocytes # (auto) 0.3 10 ^3/uL (0.4-5.4); Lymphocytes % (auto) 7.1 % (10.0-50.0); Mean Corpuscular Hemoglobin 34.8 pg (28.0-32.0); Mean Corpuscular Hgb Conc. 34.3 g/dL (32.0-36.0); Mean Corpuscular Volume 101.3 fL (80.0-100.0); Monocytes # (auto) 0.2 10 ^3/uL (0-1.3); Monocytes % (auto) 5.3 % (0.0-12.0); Neutrophils # (auto) 3.7 10 ^3/uL (1.6-8.6); Neutrophils % (auto) 87.4 % (37.0-80.0); Nucleated Red Blood Cells % 0.4 %; Platelet Count (auto) 113 10^3/uL (140-450); Red Blood Cells 3.66 10^6/uL (4.5-5.90); Red Cell Distribution Width 16.6 % (11.8-14.3); White Blood Cell 4.2 10^3/uL (4.4-10.8)
--- NOTE | 2025-02-08 12:44 | DVHPN2 ---
Progress Note - Dictate Date Seen: Feb 08, 2025 Medical Necessity Reason Pt with a Central, PICC or Fol: No vital signs Vital Sign Date Time Temp Pulse Resp B/P (MAP) Pulse Ox O2 Delivery O2 Flow Rate FiO2 02/08/25 10:29 82 20 100 02/08/25 10:22 Nasal Cannula* 2 28 02/08/25 09:48 134/89 02/08/25 09:00 96.0 96.0 Total Intake and Output 02/07/25 02/07/25 02/08/25 15:00 23:00 07:00 Intake Total 300 ml 1200 ml 450 ml Output Total 600 ml 1150 ml Balance 300 ml 600 ml -700 ml medications Current Medications Medications Dose Ordered Sig/Jonathan Route Start Time Stop Time Status Last Admin Dose Admin Docusate Sodium 100 mg BIDPRN PRN PO 02/05/25 20:15 Acetaminophen 650 mg Q6HP PRN PO 02/05/25 20:15 Acetaminophen/ Hydrocodone Bitart 1 tab Q6HPRN PRN PO 02/05/25 20:15 Ondansetron HCl 4 mg Q4HP PRN IV 02/05/25 20:15 Morphine Sulfate 2 mg Q4HPRN PRN IV 02/05/25 20:15 Nitroglycerin 0.4 mg Q5MINP PRN SL 02/05/25 20:15 Morphine Sulfate 2 mg Q30M PRN IV 02/05/25 20:15 Ceftriaxone Sodium 50 ml @ 100 mls/hr DAILY IV 02/06/25 10:00 02/08/25 09:49 100 MLS/HR Azithromycin 250 ml @ 125 mls/hr DAILY IV 02/06/25 10:00 02/08/25 09:49 125 MLS/HR Cyclobenzaprine HCl 10 mg TIDPRN PRN PO 02/05/25 20:15 Gabapentin 100 mg TID PO 02/05/25 22:00 02/08/25 05:50 100 MG Diagnostic Test (Pha) 1 strip ACHS 02/05/25 22:00 02/08/25 11:50 1 STRIP Insulin Human Regular ACHS SC 02/05/25 22:00 02/08/25 11:51 6 UNITS Dextrose 50 ml UD PRN IV 02/05/25 20:15 Enoxaparin Sodium 40 mg DAILY SC 02/07/25 10:00 02/08/25 09:49 40 MG Furosemide 40 mg DAILY IV 02/07/25 10:00 02/08/25 09:48 40 MG Albuterol 2.5 mg Q4HWA [facility] 02/06/25 18:00 02/08/25 10:22 2.5 MG Ipratropium [place] 0.5 mg Q4HWA NE[facility] 02/06/25 18:00 02/08/25 10:21 0.5 MG Methylprednisolone Sodium Succinate 60 mg Q8HR IV 02/07/25 16:15 02/08/25 05:50 60 MG laboratory and microbiology Laboratory Tests 02/08/25 06:33 Test 02/08/25 06:33 Range/Units Serum Glucose 154 H 74-106 mg/dL Assessment/Plan Impression Acute hypoxemic respiratory failure Multifocal pneumonia Multiple myeloma Atelectasis Patient seen and examined Events Low oxygen requirements On 4 liters nasal cannula No acute events Labs and imaging reviewed Management Supplemental oxygen Titrate to maintain sats 90% or above Incentive spirometry Continue antibiotics F/u cultures Bronchodilators Diurese Monitor renal function Monitor electrolytes Supplement as needed Okay to discharge from pulmonary standpoint DVT prophylaxis Plan discussed with: Patient ULISSES LOVELACE MD Feb 08, 2025 12:44
[2025-02-08] MEDS: HYDROcodone-ACET 5/325MG TAB PO PRN (14:01)
[2025-02-08] MEDS ORDERED: METH4PAK PO (16:50)
[2025-02-08] MEDS ORDERED: ALBUAER3 IN (16:50)
[2025-02-08] MEDS ORDERED: AZIT500T66 PO (16:50)
[2025-02-08] MEDS ORDERED: AUG875T PO (16:50)
--- NOTE | 2025-02-08 16:53 | DVHDS2 ---
Discharge Summary Date of Admission Feb 05, 2025 at 20:15 Date of Discharge: Feb 08, 2025 Labs/Diagnostic Data: Laboratory Results Test 02/08/25 11:42 02/08/25 06:33 02/07/25 05:15 02/06/25 11:50 POC Glucose 291 mg/dl (70-106) White Blood Count 4.2 10^3/uL (4.4-10.8) Red Blood Count 3.66 10^6/uL (4.5-5.90) Hemoglobin 12.7 g/dL (13.5-17.5) Hematocrit 37.1 % (41.0-53.0) Mean Corpuscular Volume 101.3 fL (80.0-100.0) Mean Corpuscular Hemoglobin 34.8 pg (28.0-32.0) Mean Corpuscular Hemoglobin Concent 34.3 g/dL (32.0-36.0) Red Cell Distribution Width 16.6 % (11.8-14.3) Platelet Count 113 10^3/uL (140-450) Mean Platelet Volume 8.6 fL (6.9-10.8) Neutrophils (%) (Auto) 87.4 % (37.0-80.0) Lymphocytes (%) (Auto) 7.1 % (10.0-50.0) Monocytes (%) (Auto) 5.3 % (0.0-12.0) Eosinophils (%) (Auto) 0.1 % (0.0-7.0) Basophils (%) (Auto) 0.1 % (0.0-2.0) Neutrophils # (Auto) 3.7 10 ^3/uL (1.6-8.6) Lymphocytes # (Auto) 0.3 10 ^3/uL (0.4-5.4) Monocytes # (Auto) 0.2 10 ^3/uL (0-1.3) Eosinophils # (Auto) 0 10 ^3/uL (0-0.8) Basophils # (Auto) 0 10 ^3/uL (0-0.2) Nucleated Red Blood Cells 0.4 % Sodium Level 139 mmol/L (136-145) Potassium Level 4.2 mmol/L (3.5-5.1) Chloride Level 102 mmol/L (98-107) Carbon Dioxide Level 29 mmol/L (20-31) Anion Gap 8 (5-15) Blood Urea Nitrogen 15 mg/dL (9-23) Creatinine 0.65 mg/dL (0.700-1.30) Glomerular Filtration Rate Calc 103 mL/min (>90) BUN/Creatinine Ratio 23.1 (10.0-20.0) Serum Glucose 154 mg/dL (74-106) Calcium Level 9.6 mg/dL (8.7-10.4) Differential Total Cells Counted 100.0 (100) Neutrophils % (Manual) 76 (37.0-80.0) Band Neutrophils % (Manual) 7 Lymphocytes % (Manual) 9 (10.0-50.0) Monocytes % (Manual) 4 (0-12) Eosinophils % (Manual) 4 (0-7) Basophils % (Manual) 0 (0.0-2.0) Metamyelocytes % (manual) 0 Myelocytes % (Manual) 0 Promyelocytes % (Manual) 0 Blast Cells % (Manual) 0 Reactive Lymphocytes 0 Platelet Estimate Decreased Macrocytosis Slight Influenza Type A Antigen Negative (Negative) Influenza Type B Antigen Negative (Negative) SARS-CoV-2 Antigen (Rapid) Negative (NEGATIVE) Test 02/06/25 04:04 02/05/25 17:17 02/05/25 14:15 02/05/25 11:12 Polychromasia Slight Anisocytosis (manual) Slight Lactic Acid Level 2.2 mmol/L (0.4-2.0) Magnesium Level 2.2 mg/dL (1.6-2.6) D-Dimer, Quantitative 0.33 mg/L FEU (0.0-0.49) Urine Color Light-yellow (Yellow) Urine Clarity Clear (Clear) Urine pH 5.5 (5.0-9.0) Urine Specific [place] 1.008 (1.001-1.035) Urine Protein Negative (Negative) Urine Ketones Negative (Negative) Urine Blood Negative /uL (Negative) Urine Nitrite Negative (Negative) Urine Bilirubin Negative (Negative) Urine Urobilinogen Normal mg/dL (Negative) Urine Leukocyte Esterase 3+ /uL (Negative) Urine RBC 3 /hpf (0 - 3) Urine Microscopic WBC 19 /HPF (0-3) Urine Squamous Epithelial Cells Few /hpf (<5) Urine Bacteria None seen /hpf (None Seen) Urine Glucose 1+ mg/dL (Normal) Total Bilirubin 0.4 mg/dL (0.2-1.0) Aspartate Amino Transferase (AST) 54 U/L (<34) Alanine Aminotransferase (ALT) 116 U/L (7-40) Alkaline Phosphatase 147 U/L (46-116) Troponin I High Sensitivity 6 ng/L (</=54) B-Type Natriuretic Peptide 31.53 pg/mL (0-100) Total Protein 5.4 g/dL (5.7-8.2) Albumin 3.9 g/dL (3.2-4.8) Other Laboratory Tests 02/08/25 06:33 Brief Hx & Hospital Course: 70-year-old male with a known history of diabetes mellitus type 2, hypertension, morbid obesity classIII, previous history of thoracolumbar spine surgery at T11/T12 and L1 in September this year presented to the hospital with increasing shortness a breath found to have Acute hypoxic respiratory failure suspected secondary to multifocal pneumonia. Patient also has morbid obesity class three as well as obesity hypoventilation syndrome. Patient was being seen by Pulmonary as well. Patient does have known history of multiple myeloma currently on chemotherapy. Patient initially was requiring O2 supplementation currently saturating more than 92% on room air as well as exertion. Patient is requesting to go home. Patient will be discharged home on p.o. antibiotics as well as inhaler and Medrol Dosepak. Patient needs outpatient follow up with the Pulmonary in 1-2 weeks as well as PCP with a repeat chest x-ray. Condition at Discharge: Stable Final Diagnosis/Problems List 70-year-old male with a known history of diabetes mellitus type 2, hypertension, morbid obesity classIII, previous history of thoracolumbar spine surgery at T11/T12 and L1 in September this year presented to the hospital with increasing shortness a breath found to have 1. Acute hypoxic respiratory failure currently on room air 2. Multifocal pneumonia switched to p.o. antibiotics 3. Morbid obesity classIII, suspect obesity hypoventilation syndrome 4. Hypertension 5. Diabetes mellitus type 2 6. Multiple myeloma currently on chemotherapy Discharge Disposition: Home SNF Discharge Will this Physician continue t: No Discharge Instruct/Medications Diet: Cardiac 2g Na,low cholest Activity: No Restrictions, As Tolerated Follow Up/Referral: Follow up with the PCP in 1-2 weeks Follow up with the Pulmonary in two weeks with a repeat chest x-ray. Medications: Augmentin, azithromycin, albuterol inhaler, Medrol Dosepak New Medications: Albuterol Sulfate (Ventolin Mdi) 90 Mcg Ih 90 MCG IN Q4HP PRN, #1 INH Amoxicillin & Pot Clavulanate (Augmentin Tablet) 875 Mg Tb 875 MG PO BID for 7 Days, #14 TAB Azithromycin (Azithromycin) 500 Mg Tab 500 MG PO DAILY for 2 Days, #2 TAB Methylprednisolone (Medrol Dosepak) 4 Mg Trip 4 MG PO UD, #21 TAB UAD Continued Medications: Acyclovir (Acyclovir) 400 Mg Tab 1 TAB PO BID Amlodipine Besylate (Norvasc Tablet) Unknown Strength Tb Unknown Dose PO DAILY, #30 TAB 5 Refills Aspirin (Aspir-Low) 81 Mg Tab 81 MG PO DAILY for 30 Days, MG Cyclobenzaprine Hcl (Cyclobenzaprine Hcl) Unknown Strength Tab Unknown Dose PO Q8HP for 30 Days, MG Cyclobenzaprine HCl (Cyclobenzaprine Hydrochlo) 10 Mg Tab 10 MG PO TID for 30 Days, #90 TAB Dexamethasone (Dexamethasone) Unknown Strength Tab Unknown Dose PO, MG Docusate Sodium (Docusate Sodium) 100 Mg Cap 100 MG PO BID for 14 Days, #28 CAP Ergocalciferol (Vitamin D) 50,000 Unit Cap 1 CAP PO QWEEKLY Gabapentin (Gabapentin) Unknown Strength Cap Unknown Dose PO for 30 Days, MG Hydrocodone-Acetaminophen (Hydrocodone Bitartrate/AC 5-325 mg) Unknown Strength Tab Unknown Dose PO, TAB Lisinopril (Lisinopril) 2.5 Mg Tab 2.5 MG PO DAILY, TAB Loratadine (Claritin) Unknown Strength Tab Unknown Dose PO DAILY, #30 TAB 5 Refills Metformin Hydrochloride (Metformin Hcl) Unknown Strength Tab Unknown Dose PO IBID for 30 Days, MG Morphine Sulfate (Morphine Sulfate) Unknown Strength Tab Unknown Dose PO, TAB Prednisone (Prednisone) Unknown Strength Tb Unknown Dose PO DAILY, #360 TAB 3 Refills Discontinued Medications: Hydrocodone-Acetaminophen (Hydrocodone Bitartrate/AC 10-325 mg) 1 Tab Tab 2 TAB PO Q6HPRN PRN for 14 Days, #112 TAB Ibuprofen (Ibuprofen) Unknown Strength Cap Unknown Dose PO, MG Sulfamethoxazole-Trimethoprim (Bactrim) 1 Tab Tab 1 TAB PO DAILY, MG Discharge Statement: "Patient was advised to return to the ER or call 911 if any headaches, dizziness, shortness of breath, chest pain, abdominal pain, bleeding, fevers, or worsening of medical condition. Patient was counseled about treatment plan, medications, possible side effects, patientverbalized understanding. All questions were answered to the best of my ability. This discharge took greater then 30 minutes in planning, reviewing documentation, counseling the patient, and discussing with other team members." ASSESSMENT ASSESSMENT Assessment 70-year-old male with a known history of diabetes mellitus type 2, hypertension, morbid obesity classIII, previous history of thoracolumbar spine surgery at T11/T12 and L1 in September this year presented to the hospital with increasing shortness a breath found to have 1. Acute hypoxic respiratory failure currently on room air 2. Multifocal pneumonia switched to p.o. antibiotics 3. Morbid obesity classIII, suspect obesity hypoventilation syndrome 4. Hypertension 5. Diabetes mellitus type 2 6. Multiple myeloma currently on chemotherapy Date of Service: Feb 08, 2025 Billing Provider: GIOVANNI BURKS MD Common Visit Codes: NOT BILLABLE GIOVANNI BURKS MD Feb 08, 2025 16:53
--- NOTE | 2025-02-09 18:13 | DVHSR ---
APPROVED REPORT EXAM: Two-dimensional and M-mode echocardiogram with Doppler, color Doppler and Optison. Blood Pressure: 122/76 mmHg INDICATION Peripheral Edema RISK FACTORS Height: 5'9", Weight: 289 DIMENSIONS LVDd4.9 (3.8-5.7cm)LA (2D)4.0 (1.9-4.0cm)Aortic Root3.7 (2.0-3.7cm) LVDs3.2 (2.5-4.0cm)LA (MM) (1.9-4.0cm)Aortic Cusp Exc2.0 (1.5-2.0cm) EF (%) 63.0 (55-70%)Rt. Atrium (1.9-4.0cm)Asc. Aorta4.3 cm IVSd1.5 (0.7-1.1cm)RV (D) (1.8-2.4cm) PWd1.2 (0.7-1.1cm) Mitral Valve MitralMitral Stenosis E wave0.43m/sMV Mean GR.mmHg A wave0.62m/sMV Peak GR.mmHg E/A ratio0.72D MVAcm2 DECEL [id number] 1/2 Timems Aortic Valve Aortic ValveAortic Stenosis V11.03m/Nichelle Mean GR.6mmHg V21.57m/Nichelle Peak GR.9mmHg LVOT Diameter2.4 (1.8-2.4cm)Doppler AVA2.97cm2 Pulmonic Valve V20.98m/s Other Information Quality : Technically LimitedRhythm : Technically limited study due to body habitus and patient position. Conclusion Technically good study. Sinus rhythm. Concentric LVH. Aortic root enlargement. Mild mitral annular calcification and thickening of the leaflets. Valves appear to be otherwise stru cturally normal. Tricuspid aortic and pulmonic normal. Left ventricular function appears preserved at 60% with normal RV function. Contrast ECHO confirms L V function. Dopplers unremarkable. No pericardial effusion masses or vegetations.
== END 2025-02-08 17:50 | disposition home or self-care (01) | DRG 177 ==
LOC: EDBD 10:50 → ER 11:05 → OVERFLOW 20:15 → TELE-CENTR 20:56
PROVIDERS: ADMIT Nurse Practitioner Family; ATTEND Nurse Practitioner Family
DX: J15.69 Pneumonia due to other Gram-negative bacteria (principal); J96.01 Acute respiratory failure with hypoxia; N39.0 Urinary tract infection, site not specified; E66.2 Morbid (severe) obesity with alveolar hypoventilation; C90.00 Multiple myeloma not having achieved remission; Z68.41 Body mass index [BMI] 40.0-44.9, adult; J98.11 Atelectasis; Z20.822 Contact with and (suspected) exposure to COVID-19; D69.6 Thrombocytopenia, unspecified; E11.9 Type 2 diabetes mellitus without complications; I10 Essential (primary) hypertension; E66.813 Obesity, class 3; G89.29 Other chronic pain; J15.9 Unspecified bacterial pneumonia; Z79.02 Long term (current) use of antithrombotics/antiplatelets; Z79.84 Long term (current) use of oral hypoglycemic drugs; Z79.82 Long term (current) use of aspirin; Z79.899 Other long term (current) drug therapy; Z83.3 Family history of diabetes mellitus; Z80.42 Family history of malignant neoplasm of prostate
CPT/HCPCS: 36415; 71045; 71275; 80048; 80053; 81001; 82962; 83605; 83735; 83880; 84484; 85007; 85025; 85027; 85379; 87040; 87070; 87077; 87081; 87086; 87186; 87205; 87426; 87804; 93005; 93306; 93970; 94640; 96365; 96366; 96375; 97163; 99291; G0378; J1815; J2543

== ENCOUNTER 2025-05-11 09:07 | Day surgery (SDC) | payer OTHER ==
[~2025-05-11] VITALS: Ht 175.3 cm; Wt 120.7 kg
[~2025-05-11 09:07] MED LIST changes: -ACYC1TAB2 PO; +ALBUAER3 IN; -AML5T PO; +BENZ100C97 PO; +CLON0.5T4 PO; -CYCL-611 PO; -CYCL-839 PO; -DEXA2TAB PO; -DOCU-265 PO; -ERGO1CAP12 PO; +ERGO2000 PO; +FURO40TA4 PO; -GABA-1250 PO; +GABA-1308 PO; -HYDR-4798 PO; -IBUP200C3 PO; -LISI2.5T47 PO; -LORA-622 PO; +METO25TA93 PO; -MORP30TA PO; +POTA-36 PO; -PRE1T PO; -SULF400T11 PO
[2025-05-11] MEDS ORDERED: IODIXANOL 320MG/ML 100ML BTL IV ONE (15:53)
[2025-05-11] MEDS ORDERED: HEPARIN IN NS 1000Units/500mL 1,500 ML ONE (15:53)
[2025-05-11] MEDS ORDERED: fentaNYL CITRATE 100 MCG/2 ML VL ONE (16:11)
[2025-05-11 16:29] VITALS: BP 155/96; PULSE 60; RESP 26; O2SAT 96
[2025-05-11] MEDS ORDERED: IPRATROPIUM BROM 0.5 MG/2.5ML INH SOL NEB ONE (16:30)
[2025-05-11] MEDS ORDERED: ALBUTEROL SULF 2.5 MG/0.5ML(0.5%) NEB SOLN NEB ONE (16:30)
[2025-05-11 16:38] VITALS: BP 129/91; PULSE 99; RESP 17; O2SAT 92
[2025-05-11 17:03] VITALS: BP 115/71; PULSE 85; RESP 20; O2SAT 91
[2025-05-11 17:08] VITALS: BP 115/71; PULSE 85; RESP 20; O2SAT 91
[2025-05-11 17:23] VITALS: BP 122/64; PULSE 90; RESP 20; O2SAT 93
== END 2025-05-11 17:50 | disposition home or self-care (01) ==
LOC: CATH 09:07
PROVIDERS: ATTEND Internal Medicine
DX: R07.89 Other chest pain (principal); Z53.8 Procedure and treatment not carried out for other reasons; I11.0 Hypertensive heart disease with heart failure; J44.9 Chronic obstructive pulmonary disease, unspecified; I50.9 Heart failure, unspecified; E11.9 Type 2 diabetes mellitus without complications; G47.33 Obstructive sleep apnea (adult) (pediatric); F41.9 Anxiety disorder, unspecified; C90.00 Multiple myeloma not having achieved remission
CPT/HCPCS: 93458; C1769; C1887; J1644; J3010; Q9967; 93460; 99152

== ENCOUNTER 2025-06-29 06:44 | Day surgery (SDC) | payer OTHER ==
[~2025-06-29] VITALS: Ht 175.3 cm; Wt 122.0 kg
[~2025-06-29 06:44] MED LIST changes: -ERGO2000 PO
[2025-06-29] MEDS ORDERED: IODIXANOL 320MG/ML 100ML BTL IV ONE ×4 (07:33→10:33)
[2025-06-29] MEDS ORDERED: VERAPAMIL 2.5MG/ML INJ 2ML VIAL IV ONE (08:46)
[2025-06-29] MEDS ORDERED: HEPARIN SODIUM (PORCINE) 5000 UNITS/ML 1ML VIAL ONE (08:46)
[2025-06-29] MEDS ORDERED: ANGIOMAX 250 MG VIAL IV ONE ×2 (08:46→10:02)
[2025-06-29] MEDS ORDERED: LIDOCAINE 2%HCL (LOCAL ANESTH.) INJ 20ML MDV ONE (08:47)
[2025-06-29] MEDS ORDERED: MIDAZOLAM HCL 2MG/2ML 2ml VIAL (1mg/ml) ONE (08:47)
[2025-06-29] MEDS ORDERED: fentaNYL CITRATE 100 MCG/2 ML VL ONE (08:47)
[2025-06-29] MEDS ORDERED: SODIUM CHL 0.9% 50 ML ONE ×2 (08:47→10:02)
[2025-06-29] MEDS ORDERED: LORazepam 2MG/ML-1ML VIAL ONE (09:00)
[2025-06-29] MEDS ORDERED: NITROGLYCERIN 0.4MG/DOSE SPRAY 4.9GM ONE (09:13)
[2025-06-29] MEDS ORDERED: CLOPIDOGREL BISULFATE 75 MG TAB ONE (10:51)
[2025-06-29] MEDS: FUROSEMIDE 40 MG/4 ML VIAL IV ONE (11:20)
[2025-06-29] MEDS ORDERED: ALBUTEROL SULF 2.5 MG/0.5ML(0.5%) NEB SOLN ONE (11:26)
[2025-06-29 11:28] VITALS: PULSE 87; RESP 30; O2SAT 96
[2025-06-29] MEDS: ALBUTEROL SULF 2.5 MG/0.5ML(0.5%) NEB SOLN NEB PRN (11:28)
[2025-06-29 11:34] VITALS: PULSE 89; RESP 17; O2SAT 98
[2025-06-29] MEDS: FUROSEMIDE 20 MG/2 ML VIAL ONE (11:44)
--- NOTE | 2025-06-29 11:51 | DVHOP2 ---
Operative Report - 2 Report Details Date: 06/29/25 Preop Diagnosis: CAD Postop Diagnosis: CAD. Congestive heart failure. Surgeon: Tracey Hernandez MD Anesthesiologist: Conscious sedation Anesthesia: Mac, Local Consent: The patient was informed of the risks and benefits of the procedure. These include but are not limited to complications of anesthesia, postoperative infection, incomplete relief of symptoms, recurrence of symptoms, damage to blood vessels, nerves and tendons, deep venous thrombosis, pulmonary embolism and possible need for repeat surgery in the future. Complications: No complications Findings: Stenotic diagonal branch Indications for Surgery: Chest pain. Congestive heart failure. Name of Procedure Performed Left heart catheterization. Bilateral cine coronary angiography. Left ventriculography. Procedure Details Procedure Details: Prior local anesthesia with 2% lidocaine to the right wrist and full informed consent obtained the patient was prepped and draped in usual fashion followed by placement of a six Kiswahili sheath into the radial artery through which a Neri catheter was used for ventriculography and cannulation of both right and left coronary ostia without complications. Hemodynamics: Aortic blood pressure was 130/70. End-diastolic pressure was 20. There was no gradient across the aortic valve on pullback. Coronary anatomy: The RCA is a large dominant vessel it is normal in its proximal mid and distal segments. PDA and posterolateral branches are normal. Left main is large and normal. Left anterior descending is a large vessel it is normal its proximal portion mild plaquing at its mid and distal portions. No critical disease. The large 1st diagonal has an 80% proximal ostial stenosis. The circumflex is a large vessel with two marginals free of significant disease. Ventriculography in the CERVANTES projection shows an EF of 50%. Angioplasty was performed for which a three five EBU guide was then placed followed by cannulation of the diagonal vessel with a Specter wire. Pre dilatation with a AngioSculpt balloon which was a 3-0 by 15 mm. This was inflated at about 10-15 atmospheres. We then placed a eight by 3 mm stent after intravascular ultrasound evaluation revealed a significant stenosis. There was significant plaque shift from the diagonal into the LAD creating a lesion into the left anterior descending about 80% stenosis. We then placed a 2nd wire into the left anterior descending coronary artery pre-dilated with a 3-0 balloon followed by placing a three 5 x 8 mm Medtronic rachel drug-eluting stent. This was dilated to approximately 13 atmospheres. We then rewired the LAD diagonal via a strut and placed a 1.5 balloon. We then post dilated with a 3-0 by 8 mm noncompliant balloon and we retracted slightly and performed kissing balloon technique to the LAD diagonal after placing a three 5 x 8 stent into the LAD proximally. There was excellent antegrade flow without thrombus formation and/or dissection. Impression: Elevated left ventricular end-diastolic pressure at rest with normal ejection fraction. Single-vessel coronary artery disease with stenting and plaque shift into the LAD necessitating kissing balloon stenting of the LAD and diagonal vessels. Significant diastolic dysfunction and congestive heart failure with preserved ejection fraction. Recommendations: Continue with dual antiplatelet therapy. Condition Good Disposition Home Date of Service: Jun 29, 2025 Billing Provider: TRACEY HERNANDEZ Sr., MD Cardiology Common Codes: 78825-YOBJCBM INP/OBS CARE (High) Cardiology Procedure Codes: 12106-DVRUFW VESSEL W/I VASC FAM, 14033 -PTCA W /STENT PLACEMENT, 63574-IZDZ HEART CATH W/INTRA INJ TRACEY HERNANDEZ Sr., MD Jun 29, 2025 11:51
[2025-06-29] MEDS ORDERED: CLOP75TA28 PO (13:22)
== END 2025-06-29 14:20 | disposition home or self-care (01) ==
LOC: CATH 06:44
PROVIDERS: ATTEND Internal Medicine
DX: I25.10 Atherosclerotic heart disease of native coronary artery without angina pectoris (principal); I50.30 Unspecified diastolic (congestive) heart failure; J44.9 Chronic obstructive pulmonary disease, unspecified; Z79.82 Long term (current) use of aspirin; Z79.84 Long term (current) use of oral hypoglycemic drugs; Z79.899 Other long term (current) drug therapy; Z87.01 Personal history of pneumonia (recurrent); Z95.5 Presence of coronary angioplasty implant and graft; Z98.890 Other specified postprocedural states; Z87.891 Personal history of nicotine dependence; Z80.42 Family history of malignant neoplasm of prostate; Z83.3 Family history of diabetes mellitus; Z83.79 Family history of other diseases of the digestive system
CPT/HCPCS: 92978; 93458; 94640; C1725; C1753; C1769; C1874; C1887; C1894; C9600; C9601; J0583; J1644; J1938; J2060; J3010; J7030; Q9967; 99152; J2250

== ENCOUNTER 2025-07-18 09:14 | Inpatient (IN) | payer OTHER ==
[~2025-07-18] VITALS: Ht 175.3 cm; Wt 113.1 kg
[~2025-07-18 09:14] MED LIST changes: +CLOP75TA28 PO
--- NOTE | 2025-07-18 10:11 | ED.PDOC ---
History of Present Illness HPI Comments 70-year-old male with past medical history of [id number] diabetes mellitus type 2, hypertension, multiple myeloma on chemotherapy, pneumonia, CAD with 2 stents placed 3 weeks ago, CHF has come to the ER with chief complaints of lower back pain. As per patient, he fractured his lower back (L-5 spine) in April and has had constant back pain, 8/10 in intensity which increases to 10/10 on standing, nonradiating, localized to his lower back, with no relieving factors. Patient states that he had CHF, pneumonia rendering him unable to get the back surgery done before, but recently he had an MRI done and visited orthopedics Doctor (Dr. Olmstead), who asked him to follow up today at the ER, for an elective surgery tomorrow morning(07/19/2025). Patient states that he takes [place] tablets but it does not help him much. On inquiry, patient reports of some tingling and numbness in bilateral legs but states it has been chronic. He denies any nausea, vomiting, weakness, shortness of breaths, abdominal symptoms, urinary symptoms. On initial assessment, patient is A&O x4, severe distress. On further questioning, patient states that has all his reports. Chief Complaint: Back Pain Time Seen by MD: 09:45 Primary Care Provider: bandar Rothman Notes: Medications, Allergies Allergies: Coded Allergies: NO KNOWN ALLERGIES (Unverified , 06/27/25) Home Meds Active Scripts Albuterol Sulfate (VENTOLIN MDI) 90 Mcg Ih, 90 MCG IN Q4HP PRN, #1 INH Prov:GIOVANNI BURKS MD 02/08/25 Reported Medications Clopidogrel Bisulfate (Plavix) 75 Mg Tab, 1 TAB PO DAILY for new stent, #90 TAB 1 Refill 06/29/25 Benzonatate (Benzonatate) 100 Mg Cap, 1 CAP PO TID for COUGH, #30 CAP 05/09/25 Clonazepam (Clonazepam) 0.5 Mg Tab, 0.5 MG PO DAILY PRN for ANXIETY, TAB 05/09/25 Potassium Chloride (POTASSIUM CHLORIDE CR) 10 Meq Tb, 20 MEQ PO DAILY, TAB 05/09/25 Metoprolol Succinate (Metoprolol Succinate Er) 25 Mg Tab, 20 MG PO DAILY for 30 Days, MG 05/09/25 Furosemide (Furosemide) 40 Mg Tab, 40 MG PO DAILY for 30 Days 05/09/25 Metformin Hydrochloride (Metformin Hcl) 500 Mg Tab, 500 MG PO DAILY for 30 Days, MG 05/09/25 Gabapentin (Gabapentin) 100 Mg Cap, 100 MG PO DAILY for 30 Days, MG 05/09/25 Hydrocodone-Acetaminophen (Hydrocodone Bitartrate/AC 5-325 mg) Unknown Strength Tab, PO, TAB 12/30/23 Aspirin (Aspir-Low) 81 Mg Tab, 81 MG PO DAILY for 30 Days, MG 12/30/23 Mode of Arrival: Wheelchair Severity: Severe Timing: Days Duration: Since onset Prehospital treatment: Other (MRI, patient on [place] for pain management) Past Medical History PAST MEDICAL HISTORY: CAD, CHF, DM, HTN Past Medical History (Other): Multiple myeloma on chemotherapy Surgical History (Other): T11/12/L1 fracture surgery Family History Family History: Reviewed,noncontributory to illness, Unknown Social History Smoker: Non-Smoker Alcohol: Denies ETOH Use Drugs: Denies Drug Use Lives In: Home Constitutional: denies: chills, diaphoresis, fatigue, fever, malaise, sweats, weakness, others EENTM: denies: blurred vision, double vision, ear bleeding, ear discharge, ear drainage, ear pain, ear ringing, eye pain, eye redness, hearing loss, mouth pain, mouth swelling, nasal discharge, nose bleeding, nose congestion, nose pain, photophobia, tearing, throat pain, throat swelling, voice changes, others Respiratory: denies: cough, hemoptysis, orthopnea, SOB at rest, shortness of breath, SOB with excertion, stridor, wheezing, others Cardiovascular: denies: chest pain, dizzy spells, diaphoresis, Dyspnea on exertion, edema, irregular heart beat, left arm pain, lightheadedness, palpitations, PND, syncope, others Gastrointestinal: denies: abdomen distended, abdominal pain, blood streaked bowels, constipated, diarrhea, dysphagia, difficulty swallowing, hematemesis, melena, nausea, poor appetite, poor fluid intake, rectal bleeding, rectal pain, vomiting, others Genitourinary: denies: burning, dysuria, flank pain, frequency, hematuria, incontinence, penile discharge, penile sore, pain, testicle pain, testicle swelling, urgency, others Neurological: reports: tingling (Bilateral lower extremity, chronic); denies: dizziness, fainting, headache, left sided numbness, left sided weakness, numbness, paresthesia, pre-existing deficit, right sided numbness, right sided weakness, seizure, speech problems, tremors, weakness, others Musculoskeletal: reports: back pain; denies: gout, joint pain, joint swelling, muscle pain, muscle stiffness, neck pain, others Integumetry: denies: bruises, change in color, change in hair/nails, dryness, laceration, lesions, lumps, rash, wounds, others Allergic/Immunocompromised: denies: Difficulty Healing, Frequent Infections, Hives, Itching, others Hematologic/Lymphatic: denies: anemia, blood clots, easy bleeding, easy bruising, swollen glands, others Endocrine: denies: excessive hunger, excessive sweating, excessive thirst, excessive urination, flushing, intolerance to cold, intolerance to heat, unexplained weight gain, unexplained weight loss, others Psychiatric: denies: anxiety, bipolar disorder, depression, hopeless, panic disorder, schizophrenia, sleepless, suicidal, others Physical Exam General Appearance: Severe Distress HEENT: Other (No icterus, no pallor, maintains eye contact) Neck: Non-Tender, Normal, Normal Inspection Respiratory: No Accessory Muscle Use, No Respiratory Distress, Normal Breath Sounds, Other (No wheezing, stridor, rhonchi) Cardiovascular: No Edema, No JVD, No Murmur, Tachycardia Breast Exam: Deferred Gastrointestinal: No Organomegaly, Non Tender, Normal Bowel Sounds, Other (No guarding, no rebound tenderness, no masses palpated) Genitalia: Deferred Pelvic: Deferred Rectal: Deferred Extremities: Normal inspection, Normal range of motion, Non-tender, No pedal edema Neurologic: Other (No facial droop pain, patient unable to stand due to pain) Cerebellar Function: Unable to Test Reflexes: Normal Skin: Normal Color Lymphatic: Other (No cervical lymphadenopathy palpated) Was a procedure done? Was a procedure done?: No Differential Dx Considerations may include: Lumbar fracture, musculoskeletal pain X-Ray, Labs, Meds, VS Vital Signs Date Time Temp Pulse Resp B/P (MAP) Pulse Ox O2 Delivery O2 Flow Rate FiO2 07/18/25 10:12 110 18 126/96 07/18/25 10:10 98.6 110 17 126/96 (106) 96 98.6 07/18/25 09:15 97.8 113 20 131/100 97 97.8 Lab Test 07/18/25 09:48 Range/Units White Blood Count Pending Red Blood Count Pending Hemoglobin Pending Hematocrit Pending Mean Corpuscular Volume Pending Mean Corpuscular Hemoglobin Pending Mean Corpuscular Hemoglobin Concent Pending Red Cell Distribution Width Pending Platelet Count Pending Mean Platelet Volume Pending Neutrophils (%) (Auto) Pending Lymphocytes (%) (Auto) Pending Monocytes (%) (Auto) Pending Basophils (%) (Auto) Pending Neutrophils # (Auto) Pending Lymphocytes # (Auto) Pending Monocytes # (Auto) Pending Prothrombin Time Pending Prothrombin Time INR Pending Activated Partial Thromboplast Time Pending Sodium Level Pending Potassium Level Pending Chloride Level Pending Carbon Dioxide Level Pending Anion Gap Pending Blood Urea Nitrogen Pending Creatinine Pending Glomerular Filtration Rate Calc Pending BUN/Creatinine Ratio Pending Serum Glucose Pending Calcium Level Pending Current Medications Medications (Trade) Dose Ordered Sig/Jonathan Route Start Time Stop Time Status Last Admin Ondansetron HCl (Zofran) 4 mg ONCE ONCE IV 07/18/25 09:45 07/18/25 09:49 DC 07/18/25 10:13 Morphine Sulfate 4 mg ONCE ONCE IV 07/18/25 09:45 07/18/25 09:49 DC 07/18/25 10:12 Time of 1ST Reevaluation: 10:10 Reevaluation 1ST: Unchanged Patient Education/Counseling: Diagnosis, Treatment Family Education/Counseling: Diagnosis, Treatment Comments Patient was given Zofran 4 mg and morphine 4 mg IV stat for the pain and nausea in the ER. CBC, BNP, PT/PTT and urine analysis was ordered. Patient requires inpatient admission for further consultation with Orthopedics for possible surgery. SEPSIS Sepsis Screen Date sepsis recognized/suspect: Jul 18, 2025 Time Sepsis recognized/suspect: 915 Recent Procedure: No On Antibiotic Therapy: No Respiratory Rate >20: No Heart Rate >90: Yes Temp<36 C (96.8 F) or >38.3 C: No SBP <90 or MAP <65 mmHG: No New Acute Mental Status Change: No Is the patient on CPAP, BIPAP,: No Physician Orders Complete Blood Count (07/18/25 09:39) Basic Metabolic Panel (07/18/25 09:39) PTPTT (07/18/25 09:39) Urinalysis (07/18/25 09:39) Vital Signs Date Time Temp Pulse Resp B/P (MAP) Pulse Ox O2 Delivery O2 Flow Rate FiO2 07/18/25 10:12 110 18 126/96 07/18/25 10:10 98.6 110 17 126/96 (106) 96 98.6 07/18/25 09:15 97.8 113 20 131/100 97 97.8 Laboratory Tests Test 07/18/25 09:48 White Blood Count Pending Medications Medications Dose Ordered Sig/Jonathan Route Start Time Stop Time Status Last Admin Dose Admin Morphine Sulfate 4 mg ONCE ONCE IV 07/18/25 09:45 07/18/25 09:49 DC 07/18/25 10:12 Ondansetron HCl 4 mg ONCE ONCE IV 07/18/25 09:45 07/18/25 09:49 DC 07/18/25 10:13 Departure 1 Departure Time of Disposition: 10:25 Impression: Primary Impression: L5 vertebral fracture Disposition: ADMITTED INPATIENT Admit to: Med Surg Condition: Unstable Critical Care Note Critical Care Time?: No Stability Stability form required: No Heart Score Heart Score: Heart Score Response (Comments) Value History N/A 0 EKG N/A 0 Age N/A 0 Risk Factors N/A 0 Troponin N/A 0 Total 0 ELSA GORDON RESIDENT Jul 18, 2025 10:11
[2025-07-18] MEDS: MORPHINE SULFATE 4 MG/ML SYR/VIAL IV ONE (10:12)
[2025-07-18] MEDS: ONDANSETRON HCL 4 MG/2 ML VIAL IV ONE (10:13)
[2025-07-18 10:21] LABS: Hematocrit 49.2 % (41.0-53.0); Hemoglobin 16.6 g/dL (13.5-17.5); Mean Corpuscular Hemoglobin 31.8 pg (28.0-32.0); Mean Corpuscular Volume 94.2 fL (80.0-100.0); Nucleated Red Blood Cells % 0.3 %
[2025-07-18 10:32] LABS: Potassium 3.5 mmol/L (3.5-5.1); Sodium 139 mmol/L (136-145)
[2025-07-18 10:33] LABS: Anion Gap 13 (5-15); Carbon Dioxide 29 mmol/L (20-31)
[2025-07-18 10:34] LABS: Calcium 10.3 mg/dL (8.7-10.4); Chloride 97 mmol/L (98-107)
[2025-07-18 10:36] LABS: INR 1.04 (0.9-1.15); Partial Thromboplastin Time 27.6 SEC (24.5-34.5); Prothrombin Time 11.0 sec (9.3-11.8)
[2025-07-18 10:38] LABS: BUN/Creatinine Ratio 7.1 (10.0-20.0)
[2025-07-18 10:42] LABS: Blood Urea Nitrogen 6 mg/dL (9-23); Glucose 156 mg/dL (74-106)
[2025-07-18 14:29] LABS: Urine Protein, UAD Negative (Negative)
[2025-07-18] MEDS ORDERED: ONDANSETRON HCL 4 MG/2 ML VIAL IV PRN (17:30)
[2025-07-18] MEDS ORDERED: NITROGLYCERIN 0.4 MG SL TAB SL PRN (17:30)
[2025-07-18] MEDS ORDERED: MORPHINE SULFATE 4 MG/ML SYR/VIAL IV PRN ×2 (17:45)
[2025-07-18] MEDS: METOPROLOL SUCCINATE XL 50 MG TAB PO ONE (18:57)
[2025-07-18] MEDS: HYDROcodone-ACET 10/325MG TAB PO ONE (18:58)
[2025-07-18 20:21] VITALS: BP 125/91; PULSE 101; RESP 20; TEMP 97.1; O2SAT 90
[2025-07-18] MEDS ORDERED: ALBUTEROL SULF HFA 90MCG INH 200DOSE IN SCH (22:00)
[2025-07-18 22:56] VITALS: PULSE 86; RESP 16; O2SAT 93
[2025-07-18] MEDS ORDERED: ERGO2000 PO (22:56)
[2025-07-18 23:07] VITALS: O2SAT 93
[2025-07-18 23:26] VITALS: BP 125/91; PULSE 95; RESP 16; TEMP 97.1; O2SAT 93
[2025-07-18] MEDS ORDERED: ALBUTEROL SULF 2.5 MG/0.5ML(0.5%) NEB SOLN NEB PRN (23:30)
[2025-07-18] MEDS ORDERED: IPRATROPIUM BROM 0.5 MG/2.5ML INH SOL NEB PRN (23:30)
[2025-07-18] MEDS ORDERED: DEXTROSE (50%) 50ML SYRG IV PRN (23:45)
[2025-07-19] VITALS (9 sets, daily range): BP systolic 118–150; BP diastolic 43–105; PULSE 78–100; RESP 18–20; TEMP 97–98.3; O2SAT 93–100
[2025-07-19] MEDS: InsuLIN REG 1unit/0.01ml Soln (100units/ml) SC SCH
[2025-07-19] MEDS: SENNA 8.6 MG TAB PO SCH (00:05)
[2025-07-19] MEDS: GABAPENTIN 300 MG CAP PO SCH (00:05)
[2025-07-19] MEDS: ACCU-CHEK COMFORT CURVE STRIP VI SCH (00:11)
--- NOTE | 2025-07-19 00:11 | DVHHP2 ---
MP GOYAL END MATCHER 07/19/25 0011: History of Present Illness Reason for Visit: Chronic back pain History of Present Illness 70-year-old male with past medical history of lumbar spine stenosis, chronic back pain, DM, hypertension, CAD s/p PCI with stent to LAD(06/29/2025), CHF, multiple myeloma under treatment presents with complaints of chronic back pain. Patient endorses pain has been debilitating. also endorsing chronic numbness and tingling to bilateral lower extremities. States he was sent in by Dr. Monteiro for scheduled surgery on July 19, 2025. This time there are no complaints of fevers, chills, shortness of breath, chest pain, palpitations, nausea, vomiting dysuria, incontinence. Cardiovascular: CAD, CHF, HTN Heme/Onc: Other (Myeloma) Musculoskeletal: Chronic low back pain Endocrine: Diabetes Smoke: No ALCOHOL: none Drugs: None Lives: with Family Review of Systems Constitutional: Yes: Weakness; No: Fever, Chills, Sweats, Malaise, Other Eyes: No: Pain, Vision change, Conjunctivae inflammation, Eyelid inflammation, Other, Redness ENT: No: Ear pain, Ear discharge, Nose pain, Nose discharge, Nose congestion, Mouth pain, Mouth swelling, Throat pain, Throat swelling, Other Respiratory: No: Cough, Dry, Shortness of breath, SOB with excertion, Wheezing, Hemoptysis, Pleuritic Pain, Sputum, Wheezing, Other Cardiovascular: No: Chest Pain, Palpitations, Orthopnea, Paroxysmal Noc. Dysp ryland, Edema, Lt Headedness, Other Gastrointestinal: No: Nausea, Vomiting, Abdominal Pain, Diarrhea, Constipation, Melena, Hematochezia, Other Genitourinary: No Dysuria, No Frequency, No Incontinence, No Hematuria, No Retention, No Other Musculoskeletal: back pain; No: other, neck pain, shoulder pain, arm pain, hand pain, leg pain, foot pain Skin: No: Rash, Lesions, Jaundice, Bruising, Other Neurological: No: Weakness, Numbness, Incoordination, Change in speech, Confusion, Seizures, Other Allergies: Coded Allergies: NO KNOWN ALLERGIES (Unverified , 06/27/25) Medications Current Medications Medications Dose Ordered Sig/Jonathan Route Start Time Stop Time Status Last Admin Dose Admin Nitroglycerin 0.4 mg Q5MINP PRN SL 07/18/25 17:30 Morphine Sulfate 2 mg Q30M PRN IV 07/18/25 17:45 Metoprolol Succinate 25 mg DAILY PO 07/19/25 10:00 Furosemide 40 mg DAILY PO 07/19/25 10:00 Potassium Chloride 20 meq DAILY PO 07/19/25 10:00 Gabapentin 300 mg TID PO 07/18/25 22:00 Acetaminophen/ Hydrocodone Bitart 1 tab Q4HPRN PRN PO 07/18/25 17:30 Morphine Sulfate 2 mg Q4HPRN PRN IV 07/18/25 17:45 Ondansetron HCl 4 mg Q4HPRN PRN IV 07/18/25 17:30 Famotidine 20 mg DAILY PO 07/19/25 10:00 Sennosides 8.6 mg HS PO 07/18/25 22:00 Albuterol 90 mcg TID IN 07/18/25 22:00 Albuterol 2.5 mg Q4HPRN PRN NEB 07/18/25 23:30 Ipratropium [place] 0.5 mg Q4HPRN PRN NEB 07/18/25 23:30 Diagnostic Test (Pha) 1 strip Q6HR 07/19/25 00:00 Insulin Human Regular Q6HR SC 07/19/25 00:00 Dextrose 50 ml UD PRN IV 07/18/25 23:45 Exam Vital Signs Vital Signs Date Time Temp Pulse Resp B/P (MAP) Pulse Ox O2 Delivery O2 Flow Rate FiO2 07/18/25 23:26 97.1 95 16 125/91 93 2.0 28 97.1 07/18/25 23:07 Nasal Cannula* General Appearance: Alert, Oriented X3, Cooperative, mild distress HEENT: Atraumatic, PERRLA, EOMI Respiratory: Clear to auscultation, Normal air movement Cardiovascular: Regular rate, Normal S1, Normal S2 Abdominal: Normal bowel sounds, Soft, No tenderness Extremities: No clubbing, No cyanosis, No edema Skin: No breakdown Neuro: Normal speech, Strength at 5/5 X4 ext Psych/Mental Status: Mental status NL, Mood NL Labs/Xrays Labs Test 07/18/25 09:59 07/18/25 09:48 Range/Units Urine Color Yellow Yellow Urine Clarity Clear Clear Urine pH 6.0 5.0-9.0 Urine Specific [place] 1.012 1.001-1.035 Urine Protein Negative Negative Urine Ketones Negative Negative Urine Blood Negative Negative /uL Urine Nitrite Negative Negative Urine Bilirubin Negative Negative Urine Urobilinogen Normal Negative mg/dL Urine Leukocyte Esterase Negative Negative /uL Urine RBC 1 0 - 3 /hpf Urine Microscopic WBC 2 0-3 /HPF Urine Squamous Epithelial Cells None seen <5 /hpf Urine Bacteria None seen None Seen /hpf Urine Mucus Few None Seen Urine Glucose Normal Normal mg/dL White Blood Count 10.4 4.4-10.8 10^3/uL Red Blood Count 5.22 4.5-5.90 10^6/uL Hemoglobin 16.6 13.5-17.5 g/dL Hematocrit 49.2 41.0-53.0 % Mean Corpuscular Volume 94.2 80.0-100.0 fL Mean Corpuscular Hemoglobin 31.8 28.0-32.0 pg Mean Corpuscular Hemoglobin Concent 33.8 32.0-36.0 g/dL Red Cell Distribution Width 16.7 H 11.8-14.3 % Platelet Count 260 140-450 10^3/uL Mean Platelet Volume 8.4 6.9-10.8 fL Neutrophils (%) (Auto) 76.4 37.0-80.0 % Lymphocytes (%) (Auto) 12.5 10.0-50.0 % Monocytes (%) (Auto) 7.9 0.0-12.0 % Eosinophils (%) (Auto) 2.7 0.0-7.0 % Basophils (%) (Auto) 0.5 0.0-2.0 % Neutrophils # (Auto) 8.0 1.6-8.6 10 ^3/uL Lymphocytes # (Auto) 1.3 0.4-5.4 10 ^3/uL Monocytes # (Auto) 0.8 0-1.3 10 ^3/uL Eosinophils # (Auto) 0.3 0-0.8 10 ^3/uL Basophils # (Auto) 0.1 0-0.2 10 ^3/uL Nucleated Red Blood Cells 0.3 % Prothrombin Time 11.0 9.3-11.8 sec Prothrombin Time INR 1.04 0.9-1.15 Activated Partial Thromboplast Time 27.6 24.5-34.5 SEC Sodium Level 139 136-145 mmol/L Potassium Level 3.5 3.5-5.1 mmol/L Chloride Level 97 L 98-107 mmol/L Carbon Dioxide Level 29 20-31 mmol/L Anion Gap 13 5-15 Blood Urea Nitrogen 6 L 9-23 mg/dL Creatinine 0.85 0.700-1.30 mg/dL Glomerular Filtration Rate Calc 95 >90 mL/min BUN/Creatinine Ratio 7.1 L 10.0-20.0 Serum Glucose 156 H 74-106 mg/dL Calcium Level 10.3 8.7-10.4 mg/dL SEPSIS Sepsis Screen Date sepsis recognized/suspect: Jul 18, 2025 Time Sepsis recognized/suspect: 915 Recent Procedure: No On Antibiotic Therapy: No Respiratory Rate >20: No Heart Rate >90: Yes Temp<36 C (96.8 F) or >38.3 C: No SBP <90 or MAP <65 mmHG: No New Acute Mental Status Change: No Is the patient on CPAP, BIPAP,: No Physician Orders Npo After Midnight (07/18/25 16:33) Npo (Nothing By Mouth) Diet (07/19/25 Breakfast) * Cardiology Consult (07/18/25 16:33) Admit (07/18/25 17:22) Consultdr. Wilner Olmstead(Spine) (07/18/25 17:22) Nitroglycerin Sublingual (Ntrostat Subli (07/18/25 17:30) Stat Ekg For Chest Pain (07/18/25 17:22) Notify Md Of Changes From Base (07/18/25 17:22) Supervisor [employer] Vault For 24 Hours (07/18/25 17:22) Emergency Dysrhythmia Protocol (07/18/25 17:22) Rhythm Strips Once Every Shift (07/18/25 17:22) Oxygen By Nasal Cannula (07/18/25 17:22) Metoprolol Xl Succinate (Toprol Xl) (07/19/25 10:00) Furosemide Tablet (Lasix Tablet) (07/19/25 10:00) Potassium Er Tablet (Klor-Con Tablet) (07/19/25 10:00) Gabapentin Capsule (Neurontin Capsule) (07/18/25 22:00) Hydrocodone-Acet 5/325mg Tab ([place] 5/32 (07/18/25 17:30) Ondansetron Hcl (Zofran) (07/18/25 17:30) Famotidine Tablet (Pepcid Tablet) (07/19/25 10:00) Senna Pod Tablet (Senokot Tablet) (07/18/25 22:00) Albuterol Inhaler (Ventolin Hfa) (07/18/25 22:00) Npo Except For Medications (07/18/25 17:29) Morphine Sulfate Injection (07/18/25 17:45) Morphine Sulfate Injection (07/18/25 17:45) Albuterol Medneb (Ventolin Medneb) (07/18/25 23:30) Ipratropium Medneb (Atrovent Medneb) (07/18/25 23:30) Glucose Blood (Accu-Chek Comfort Curve T (07/19/25 00:00) Insulin R (Human) (Insulin R) (07/19/25 00:00) Dextrose 50% Syringe (07/18/25 23:45) Vital Signs Date Time Temp Pulse Resp B/P (MAP) Pulse Ox O2 Delivery O2 Flow Rate FiO2 07/18/25 23:26 97.1 95 16 125/91 93 2.0 28 97.1 07/18/25 23:07 93 Nasal Cannula* 2 28 07/18/25 23:07 93 Nasal Cannula 2.0 07/18/25 20:21 97.1 101 20 125/91 (102) 90 97.1 07/18/25 19:48 98.1 114 22 124/93 (103) 94 98.1 07/18/25 18:57 106 114/72 Medications Medications Dose Ordered Sig/Jonathan Route Start Time Stop Time Status Last Admin Dose Admin Acetaminophen/ Hydrocodone Bitart 1 tab ONCE ONCE PO 07/18/25 18:30 07/18/25 18:31 DC 07/18/25 18:58 1 TAB Metoprolol Succinate 25 mg ONCE ONCE PO 07/18/25 17:30 07/18/25 17:37 DC 07/18/25 18:57 25 MG Assessment/Plan Assessment/Plan Lumbar Spine Stenosis Chronic back pain DM HTN CAD s/p PCI w/ stent to LAD (06/29/25) CHF not in exacerbation Hx Multiple Myeloma under treatment Plan Admit to telemetry Spinal surgeon consult. Plan for surgical intervention. Cardiology consult per ER. Continue home medications Blood glucose check for regular insulin sliding scale coverage for optimal glycemic management GI ppx Pepcid / DVT ppx SCD Plan discussed with: Patient My Orders Orders - MP GOYAL NP Procedure Category Date Status Time Albuterol Medneb PHA 07/18/25 In Process (Ventolin Medneb) 23:30 Ipratropium Medneb PHA 07/18/25 In Process (Atrovent Medneb) 23:30 Glucose Blood PHA 07/19/25 In Process (Accu-Chek Comfort 00:00 Insulin R (Human) PHA 07/19/25 In Process (Insulin R) 00:00 Dextrose 50% Syringe PHA 07/18/25 In Process 23:45 Date of Service: Jul 19, 2025 Billing Provider: GARY ZIMMER MD Common Visit Codes: NOT BILLABLE GARY ZIMMER MD 07/19/25 1342: Review of Systems Allergies: Coded Allergies: NO KNOWN ALLERGIES (Unverified , 06/27/25) Additional Comments Additional Comments Additional Comments Patient's chart is reviewed and discussed with the nurse practitioner. Patient is seen evaluated and admitted by END MATCHER daylight driller. I agree with his evaluation, documentation, assessment and care plan as outlined. Apparently patient is sent to the ER by his orthopedic surgeon for possible surgery for lower back with a kyphoplasty. MP GOYAL NP Jul 19, 2025 00:11 GARY ZIMMER MD Jul 19, 2025 13:42
[2025-07-19] MEDS: POTASSIUM CHL 20 Meq TABLET PO SCH (09:36)
[2025-07-19] MEDS: FUROSEMIDE 20 MG TAB PO SCH (09:38)
[2025-07-19] MEDS: METOPROLOL SUCCINATE XL 50 MG TAB PO SCH (09:38)
[2025-07-19] MEDS: FAMOTIDINE 20 MG TAB PO SCH (09:39)
[2025-07-19] MEDS: HYDROcodone-ACET 5/325MG TAB PO PRN (09:55)
[2025-07-19] MEDS ORDERED: CLOPIDOGREL BISULFATE 75 MG TAB PO SCH (10:00)
--- NOTE | 2025-07-19 10:11 | DVHINCON2 ---
HELADIO CARVALHO [facility] 07/19/25 1011: Date Seen: Jul 19, 2025 Referring Physician MD Brenda Reason for Consultation Cardiac risk stratification History of Present Illness This is a 70-year-old male who presented to the emergency room referred by criminal intelligence specialist (Dr. Olmstead) given unbearable back pain. The patient reports a L-5 spine fracture back in April-2024. Since then he has experienced unbearable back pain which is worse with activity and which has limited his functional capacity significantly as he is now mostly bed-bound and able to mobilize via electrical wheelchair. Cardiology is now consulted for risk stratification prior to surgical intervention. Denies chest pain, SOB, palpitations, diaphoresis, dizziness, or syncopal events. He underwent a recent cardiac catheterization with catheter based intervention with Dr. Hernandez on 06/29/2025. At that time, he was found with a single-vessel coronary artery disease with stenting and plaque shift into the LAD requiring kissing balloon stenting of the LAD and diagonal vessels including 2 KRISTINE. Recommendations included DAPT uninterrupted for at least one year. Somehow the patient did not self-administe red DAPT until three days ago with latest intake yesterday. Significant medical history includes coronary artery disease status post PTCA including two KRISTINE (06/29/2025), congestive heart failure with preserved EF, multiple myeloma with current chemotherapy diagnosed in 2023, [id number] diabetes mellitus, hypertension, dyslipidemia, COPD with history of tobacco use, obstructive sleep apnea on CPAP HS (does not use it), and obesity. Past Medical History Past medical history reviewed. No other significant than mentioned above. Past Surgical History PTCA with a stent placement including two KRISTINE, 06/2025 Lumbar and thoracic laminectomy, 09/2024 Lumbar spine kyphoplasty, 01/2024 Family History: Diabetes mellitus G8 MOTHER FH: cirrhosis FH: prostate cancer G8 FATHER Family History Family history reviewed. Social History Denies the use of illicit drugs, alcohol, or tobacco use. Allergies: Coded Allergies: NO KNOWN ALLERGIES (Unverified , 06/27/25) Home Meds Reported Medications Ergocalciferol (VITAMIN D2) 2,000 Unit Tab, [address] UNIT PO, TAB 07/18/25 Clopidogrel Bisulfate (Plavix) 75 Mg Tab, 1 TAB PO DAILY for new stent, #90 TAB 1 Refill 06/29/25 Potassium Chloride (POTASSIUM CHLORIDE CR) 10 Meq Tb, 20 MEQ PO DAILY, TAB 05/09/25 Metoprolol Succinate (Metoprolol Succinate Er) 25 Mg Tab, 20 MG PO DAILY for 30 Days, MG 05/09/25 Furosemide (Furosemide) 40 Mg Tab, 40 MG PO DAILY for 30 Days 05/09/25 Metformin Hydrochloride (Metformin Hcl) 500 Mg Tab, 500 MG PO DAILY for 30 Days, MG 05/09/25 Aspirin (Aspir-Low) 81 Mg Tab, 81 MG PO DAILY for 30 Days, MG 12/30/23 Home Meds Home medications reviewed. Current Medications Current Medications Medications (Trade) Dose Ordered Sig/Jonathan Route PRN Reason Start Time Stop Time Status Last Admin Nitroglycerin (Ntrostat Sublingual) 0.4 mg Q5MINP PRN SL FOR CHEST PAIN 07/18/25 17:30 Morphine Sulfate 2 mg Q30M PRN IV FOR CHEST PAIN 07/18/25 17:45 Metoprolol Succinate (Toprol Xl) 25 mg DAILY PO 07/19/25 10:00 Furosemide (Lasix Tablet) 40 mg DAILY PO 07/19/25 10:00 Potassium Chloride (Klor-Con Tablet) 20 meq DAILY PO 07/19/25 10:00 Gabapentin (Neurontin Capsule) 300 mg TID PO 07/18/25 22:00 07/19/25 06:19 Acetaminophen/ Hydrocodone Bitart ([place] 5/325MG Tab) 1 tab Q4HPRN PRN PO MODERATE PAIN (4-6 PAIN SCALE) 07/18/25 17:30 Morphine Sulfate 2 mg Q4HPRN PRN IV SEVERE PAIN (7-10 PAIN SCALE) 07/18/25 17:45 Ondansetron HCl (Zofran) 4 mg Q4HPRN PRN IV NAUSEA / VOMITING 07/18/25 17:30 Famotidine (Pepcid Tablet) 20 mg DAILY PO 07/19/25 10:00 Sennosides (Senokot Tablet) 8.6 mg HS PO 07/18/25 22:00 07/19/25 00:05 Albuterol (Ventolin Hfa) 90 mcg TID IN 07/18/25 22:00 Cancel Albuterol (Ventolin Medneb) 2.5 mg Q4HPRN PRN NEB SHORTNESS OF BREATH 07/18/25 23:30 Ipratropium [place] (Atrovent Medneb) 0.5 mg Q4HPRN PRN NEB SHORTNESS OF BREATH 07/18/25 23:30 Diagnostic Test (Pha) (Accu-Chek Comfort Curve T) 1 strip Q6HR 07/19/25 00:00 07/19/25 06:15 Insulin Human Regular (InsuLIN R) Q6HR SC 07/19/25 00:00 Dextrose 50 ml UD PRN IV Blood Sugar LESS THAN 60 07/18/25 23:45 Review of Systems Constitutional: No symptom reported Ears, Nose, & Throat: No symptom reported Eyes: No symptom reported Neurological: No symptoms reported Pulmonary/Respiratory: No symptom reported Cardiovascular: No symptom reported Gastrointestinal: No symptom reported Genitourinary: No symptom reported Musculoskeletal: Back pain Skin: No symptom reported Psychiatric: No symptom reported Endocrine: No symptom reported Hemotologic/Lymphatic: No symptom reported Vital Signs Vital Signs Date Time Temp Pulse Resp B/P (MAP) Pulse Ox O2 Delivery O2 Flow Rate FiO2 07/19/25 06:31 95 Nasal Cannula* 2 28 07/19/25 05:00 97.2 86 18 118/89 (99) 97.2 Physical Exam General Appearance: Cooperative. Chronically ill. Obese. In no acute distress Head Exam: Normal inspection Neck Exam: Normal inspection. Non-tender. Normal alignment Pulmonary/Respiratory: Chest non-tender. Clear bilateral breath sounds Cardiovascular/Chest: Regular rate and rhythm. S1, S2. Sinus rhythm. No JVD. Peripheral Pulses: 2+ Radial (R). 2+ Radial (L). 2+ Pedal (R). 2+ Pedal (L) Abdominal Exam: Normal bowel sounds Ankle Exam: Negative ankle edema Lower extremities: Negative lower extremity edema Neuro/Mental Status: A&O x4. Coherent Thoughts/Psych: Normal thought pattern. Appropriate mood and affect Appearance: In no acute distress Skin Exam: Normal inspection. Normal color. Warm. Dry Labs/Diagnostic Data Labs Test 07/19/25 06:14 07/18/25 09:59 07/18/25 09:48 Range/Units POC Glucose 144 H 70-106 mg/dl Urine Color Yellow Yellow Urine Clarity Clear Clear Urine pH 6.0 5.0-9.0 Urine Specific [place] 1.012 1.001-1.035 Urine Protein Negative Negative Urine Ketones Negative Negative Urine Blood Negative Negative /uL Urine Nitrite Negative Negative Urine Bilirubin Negative Negative Urine Urobilinogen Normal Negative mg/dL Urine Leukocyte Esterase Negative Negative /uL Urine RBC 1 0 - 3 /hpf Urine Microscopic WBC 2 0-3 /HPF Urine Squamous Epithelial Cells None seen <5 /hpf Urine Bacteria None seen None Seen /hpf Urine Mucus Few None Seen Urine Glucose Normal Normal mg/dL White Blood Count 10.4 4.4-10.8 10^3/uL Red Blood Count 5.22 4.5-5.90 10^6/uL Hemoglobin 16.6 13.5-17.5 g/dL Hematocrit 49.2 41.0-53.0 % Mean Corpuscular Volume 94.2 80.0-100.0 fL Mean Corpuscular Hemoglobin 31.8 28.0-32.0 pg Mean Corpuscular Hemoglobin Concent 33.8 32.0-36.0 g/dL Red Cell Distribution Width 16.7 H 11.8-14.3 % Platelet Count 260 140-450 10^3/uL Mean Platelet Volume 8.4 6.9-10.8 fL Neutrophils (%) (Auto) 76.4 37.0-80.0 % Lymphocytes (%) (Auto) 12.5 10.0-50.0 % Monocytes (%) (Auto) 7.9 0.0-12.0 % Eosinophils (%) (Auto) 2.7 0.0-7.0 % Basophils (%) (Auto) 0.5 0.0-2.0 % Neutrophils # (Auto) 8.0 1.6-8.6 10 ^3/uL Lymphocytes # (Auto) 1.3 0.4-5.4 10 ^3/uL Monocytes # (Auto) 0.8 0-1.3 10 ^3/uL Eosinophils # (Auto) 0.3 0-0.8 10 ^3/uL Basophils # (Auto) 0.1 0-0.2 10 ^3/uL Nucleated Red Blood Cells 0.3 % Prothrombin Time 11.0 9.3-11.8 sec Prothrombin Time INR 1.04 0.9-1.15 Activated Partial Thromboplast Time 27.6 24.5-34.5 SEC Sodium Level 139 136-145 mmol/L Potassium Level 3.5 3.5-5.1 mmol/L Chloride Level 97 L 98-107 mmol/L Carbon Dioxide Level 29 20-31 mmol/L Anion Gap 13 5-15 Blood Urea Nitrogen 6 L 9-23 mg/dL Creatinine 0.85 0.700-1.30 mg/dL Glomerular Filtration Rate Calc 95 >90 mL/min BUN/Creatinine Ratio 7.1 L 10.0-20.0 Serum Glucose 156 H 74-106 mg/dL Calcium Level 10.3 8.7-10.4 mg/dL Assessment Preprocedural cardiovascular examination Coronary artery disease with a recent PCI to the LAD including two KRISTINE (06/2025) Chronic compensated HFpEF [id number] diabetes mellitus Chronic hypoxic respiratory failure Hypertension Dyslipidemia Former smoker Obesity * Coronary angiogram with cardiac catheterization (06/29/2025) revealed single- vessel coronary artery disease with a stenting and plaque shift into the LAD requiring kissing balloon stenting of the LAD and diagonal vessels including two drug-eluting stents. * Transthoracic echocardiogram (02/09/2025) revealed LVEF at 60% with normal RV function. Concentric LVH. Aortic root enlargement. Mild mitral annular calcification and thickening of the leaflets. Plan/Recommendation (Dr. Jason) Patient seen and examined by Dr. Jason. Revised cardiac risk index (Felix criteria): 5.0% risk of , [place], or cardiac arrest. Patient has underlying history of congestive heart failure without acute decompensation, coronary artery disease without active anginal symptoms, and has a very limited functional capacity secondary to spine fracture. Per Cardiology standpoint, the patient is at a moderate-risk for moderate-risk surgery. Recommendations include dual-antiplatelet therapy with ASA and Plavix uninterrupted for at least three months otherwise the patient will be at a high-risk for in-stent thrombosis and/or re-stenosis. There is no additional cardiac workup indicated prior to surgery. Kindly call with any questions or concerns or if further recommendations needed. Thank you for allowing us to care for this patient. Please call with any questions or concerns. This medical document was created using an electronic medical record system with voice recognition software and computerized dictation system. Although this document has been carefully reviewed, there might still be some phonetic and typographical errors. Occasional wrong-word or ``sound-alike substitutions may have occurred due to the inherent limitations of voice recognition software. These areas are purely typographical due to imperfections of the software programs and do not reflect any compromise in the patient's medical care. Please read the chart carefully and recognize, using context, where these substitutions have occurred. Plan discussed with: Patient, Other NYHA Physical activity limitations: NA Date of Service: Jul 19, 2025 Billing Provider: HELADIO CARVALHO Cardiology Common Codes: 55111-KDPGRXG INP/OBS CARE (High) MINDA JASON MD 07/19/25 1149: Date Seen: Jul 19, 2025 Referring Physician ATTESTATION NOTE; Patient was seen and examined at bedside. Plan was formulated with Lizeth Carvalho cardiology EXTRACTIVE METALLURGIST as above. Briefly this is a 70-year-old Sammarinese-speaking man with multiple myeloma with significant back pain with lumbar spine problem. Patient also has known CAD status post PCI in 06/29/2025( bifurcation stenting of LAD and diagonal), COPD, PORTIA noncompliant with CPAP, hypertension, diabetes mellitus, obesity who is admitted in anticipation for surgery for lower back. Cardiology is consulted for cardiac risk assessment prior to his procedure. Patient had PCI less than a month ago. He has not been taking his DAPT post PCI until3 days ago which he realized he was supposed to take aspirin and Plavix. He is not able to ambulate by himself due to reported back pain. He uses a electrical wheelchair to get around even within the house. Overall his activity level is minimal. Denies having chest pain or chest discomfort or chest pressure post PCI in June 29, 2025. At this point given his recent intervention and TTE in January and in the absence of any ischemic cardiac symptoms no further cardiac workup is indicated. I assume DAPT is required to be held cuate-procedure. Patient has intermediate risk of MACE ( 10% based on his RCRI risk score) for intermediate risk procedure such as kyphoplasty/ spine surgery. Ideally we would like for the patient to continue DAPT for minimum of 3 months posy PCI before interruption unless there is a strong indication for urgent procedure. Minda Jason MD ,M.Sc, Interventional and Structural cardiology Family History: Diabetes mellitus G8 MOTHER FH: cirrhosis FH: prostate cancer G8 FATHER Allergies: Coded Allergies: NO KNOWN ALLERGIES (Unverified , 06/27/25) Home Meds Reported Medications Ergocalciferol (VITAMIN D2) 2,000 Unit Tab, 17634 UNIT PO, TAB 07/18/25 Clopidogrel Bisulfate (Plavix) 75 Mg Tab, 1 TAB PO DAILY for new stent, #90 TAB 1 Refill 06/29/25 Potassium Chloride (POTASSIUM CHLORIDE CR) 10 Meq Tb, 20 MEQ PO DAILY, TAB 05/09/25 Metoprolol Succinate (Metoprolol Succinate Er) 25 Mg Tab, 20 MG PO DAILY for 30 Days, MG 05/09/25 Furosemide (Furosemide) 40 Mg Tab, 40 MG PO DAILY for 30 Days 05/09/25 Metformin Hydrochloride (Metformin Hcl) 500 Mg Tab, 500 MG PO DAILY for 30 Days, MG 05/09/25 Aspirin (Aspir-Low) 81 Mg Tab, 81 MG PO DAILY for 30 Days, MG 12/30/23 HELADIO CARVALHO Jul 19, 2025 10:11 MINDA JASON MD Jul 19, 2025 11:49
--- NOTE | 2025-07-19 10:56 | DVH ---
INDICATION: Pre-op TECHNIQUE: Frontal and lateral view of the chest was obtained COMPARISON: XR CHEST 2 VIEW on DOS: 04/19/25, XR CHEST 2 VIEW on DOS: 03/03/25, CT CT ANGIO CHEST CONTRAST on DOS: 02/05/25, XY CHEST PORTABLE on DOS: 02/05/25, XY CHEST PORTABLE on DOS: 10/03/24, XR CHEST 2 VIEW on DOS: 04/19/25 FINDINGS: Lines and Tubes: None Lungs: No focal consolidation. Pleura: No effusion. No pneumothorax. Cardiomediastinal contours: Unremarkable Bones: No acute osseous abnormality. IMPRESSION: No acute cardiopulmonary disease.
[2025-07-19 12:35] LABS: Magnesium 2.0 mg/dL (1.6-2.6)
[2025-07-19 12:37] LABS: Cholesterol 138.0 mg/dL (< 200)
[2025-07-19 12:46] LABS: HDL Cholesterol 34.0 mg/dL (40-59); Triglycerides 177.0 mg/dL (< 150)
--- NOTE | 2025-07-19 13:05 | DVHINCON2 ---
Consultation - Surgical Date Seen: Jul 19, 2025 Referring Physician Referring Physician Attending Doctor: Arthur Garcia MD Reason for Visit: Chronic back pain History of Present Illness 70-year-old male with past medical history of lumbar spine stenosis, chronic back pain, DM, hypertension, CAD s/p PCI with stent to LAD(06/29/2025), CHF, multiple myeloma under treatment presents with complaints of chronic back pain. Patient endorses pain has been debilitating. also endorsing chronic numbness and tingling to bilateral lower extremities. States he was sent in by Dr. Monteiro for scheduled surgery on July 19, 2025. This time there are no complaints of fevers, chills, shortness of breath, chest pain, palpitations, nausea, vomiting dysuria, incontinence. Cardiovascular: CAD, CHF, HTN Heme/Onc: Other (Myeloma) Musculoskeletal: Chronic low back pain Endocrine: Diabetes Smoke: No ALCOHOL: none Drugs: None Lives: with Family Reason for Consultation back pain History of Present Illness History of Present Illness History of Present Illness 70-year-old male with past medical history of lumbar spine stenosis, chronic back pain, DM, hypertension, CAD s/p PCI with stent to LAD(06/29/2025), CHF, multiple myeloma under treatment presents with complaints of chronic back pain. Patient endorses pain has been debilitating. also endorsing chronic numbness and tingling to bilateral lower extremities. States he was sent in by Dr. Monteiro for scheduled surgery on July 19, 2025. This time there are no complaints of fevers, chills, shortness of breath, chest pain, palpitations, nausea, vomiting dysuria, incontinence. Past Medical/Surgical History Past Medical/Surgical History Cardiovascular: CAD, CHF, HTN Heme/Onc: Other (Myeloma) Musculoskeletal: Chronic low back pain Endocrine: Diabetes Family and Social History Family and Social History Smoke: No ALCOHOL: none Drugs: None Lives: with Family Allergies and medications Allergies: Coded Allergies: NO KNOWN ALLERGIES (Unverified , 06/27/25) Home Meds Reported Medications Ergocalciferol (VITAMIN D2) 2,000 Unit Tab, 08972 UNIT PO, TAB 07/18/25 Clopidogrel Bisulfate (Plavix) 75 Mg Tab, 1 TAB PO DAILY for new stent, #90 TAB 1 Refill 06/29/25 Potassium Chloride (POTASSIUM CHLORIDE CR) 10 Meq Tb, 20 MEQ PO DAILY, TAB 05/09/25 Metoprolol Succinate (Metoprolol Succinate Er) 25 Mg Tab, 20 MG PO DAILY for 30 Days, MG 05/09/25 Furosemide (Furosemide) 40 Mg Tab, 40 MG PO DAILY for 30 Days 05/09/25 Metformin Hydrochloride (Metformin Hcl) 500 Mg Tab, 500 MG PO DAILY for 30 Days, MG 05/09/25 Aspirin (Aspir-Low) 81 Mg Tab, 81 MG PO DAILY for 30 Days, MG 12/30/23 Review of systems Review of Systems: MSK:Abnormal (back pain) Examination Vital signs Vital Signs Date Time Temp Pulse Resp B/P (MAP) Pulse Ox O2 Delivery O2 Flow Rate FiO2 07/19/25 10:00 98 Nasal Cannula 3.0 07/19/25 10:00 32 07/19/25 09:38 125/79 07/19/25 09:38 82 07/19/25 09:00 97.3 20 97.3 Medications Current Medications Medications (Trade) Dose Ordered Sig/Jonathan Route PRN Reason Start Time Stop Time Status Last Admin Nitroglycerin (Ntrostat Sublingual) 0.4 mg Q5MINP PRN SL FOR CHEST PAIN 07/18/25 17:30 Morphine Sulfate 2 mg Q30M PRN IV FOR CHEST PAIN 07/18/25 17:45 Metoprolol Succinate (Toprol Xl) 25 mg DAILY PO 07/19/25 10:00 07/19/25 09:38 Furosemide (Lasix Tablet) 40 mg DAILY PO 07/19/25 10:00 07/19/25 09:38 Potassium Chloride (Klor-Con Tablet) 20 meq DAILY PO 07/19/25 10:00 07/19/25 09:36 Gabapentin (Neurontin Capsule) 300 mg TID PO 07/18/25 22:00 07/19/25 06:19 Acetaminophen/ Hydrocodone Bitart ([place] 5/325MG Tab) 1 tab Q4HPRN PRN PO MODERATE PAIN (4-6 PAIN SCALE) 07/18/25 17:30 07/19/25 09:55 Morphine Sulfate 2 mg Q4HPRN PRN IV SEVERE PAIN (7-10 PAIN SCALE) 07/18/25 17:45 Ondansetron HCl (Zofran) 4 mg Q4HPRN PRN IV NAUSEA / VOMITING 07/18/25 17:30 Famotidine (Pepcid Tablet) 20 mg DAILY PO 07/19/25 10:00 07/19/25 09:39 Sennosides (Senokot Tablet) 8.6 mg HS PO 07/18/25 22:00 07/19/25 00:05 Albuterol (Ventolin Hfa) 90 mcg TID IN 07/18/25 22:00 Cancel Albuterol (Ventolin Medneb) 2.5 mg Q4HPRN PRN NEB SHORTNESS OF BREATH 07/18/25 23:30 Ipratropium [place] (Atrovent Medneb) 0.5 mg Q4HPRN PRN NEB SHORTNESS OF BREATH 07/18/25 23:30 Diagnostic Test (Pha) (Accu-Chek Comfort Curve T) 1 strip Q6HR 07/19/25 00:00 07/19/25 06:15 Insulin Human Regular (InsuLIN R) Q6HR SC 07/19/25 00:00 Dextrose 50 ml UD PRN IV Blood Sugar LESS THAN 60 07/18/25 23:45 Aspirin 81 mg DAILY PO 07/19/25 10:00 Clopidogrel Bisulfate (Plavix) 75 mg DAILY PO 07/19/25 10:00 Atorvastatin Calcium (Lipitor) 40 mg HS PO 07/19/25 22:00 Laboratory Labs Test 07/19/25 12:24 07/19/25 11:45 07/18/25 09:59 07/18/25 09:48 Range/Units POC Glucose 141 H 70-106 mg/dl Hemoglobin A1c 6.4 H <5.7 % A1C Magnesium Level 2.0 1.6-2.6 mg/dL Triglycerides Level 177 H < 150 mg/dL Cholesterol Level 138 < 200 mg/dL LDL Cholesterol 85 < 100 mg/dL HDL Cholesterol 34 L 40-59 mg/dL Thyroid Stimulating Hormone (TSH) 1.28 0.55-4.78 uIU/mL Urine Color Yellow Yellow Urine Clarity Clear Clear Urine pH 6.0 5.0-9.0 Urine Specific [place] 1.012 1.001-1.035 Urine Protein Negative Negative Urine Ketones Negative Negative Urine Blood Negative Negative /uL Urine Nitrite Negative Negative Urine Bilirubin Negative Negative Urine Urobilinogen Normal Negative mg/dL Urine Leukocyte Esterase Negative Negative /uL Urine RBC 1 0 - 3 /hpf Urine Microscopic WBC 2 0-3 /HPF Urine Squamous Epithelial Cells None seen <5 /hpf Urine Bacteria None seen None Seen /hpf Urine Mucus Few None Seen Urine Glucose Normal Normal mg/dL White Blood Count 10.4 4.4-10.8 10^3/uL Red Blood Count 5.22 4.5-5.90 10^6/uL Hemoglobin 16.6 13.5-17.5 g/dL Hematocrit 49.2 41.0-53.0 % Mean Corpuscular Volume 94.2 80.0-100.0 fL Mean Corpuscular Hemoglobin 31.8 28.0-32.0 pg Mean Corpuscular Hemoglobin Concent 33.8 32.0-36.0 g/dL Red Cell Distribution Width 16.7 H 11.8-14.3 % Platelet Count 260 140-450 10^3/uL Mean Platelet Volume 8.4 6.9-10.8 fL Neutrophils (%) (Auto) 76.4 37.0-80.0 % Lymphocytes (%) (Auto) 12.5 10.0-50.0 % Monocytes (%) (Auto) 7.9 0.0-12.0 % Eosinophils (%) (Auto) 2.7 0.0-7.0 % Basophils (%) (Auto) 0.5 0.0-2.0 % Neutrophils # (Auto) 8.0 1.6-8.6 10 ^3/uL Lymphocytes # (Auto) 1.3 0.4-5.4 10 ^3/uL Monocytes # (Auto) 0.8 0-1.3 10 ^3/uL Eosinophils # (Auto) 0.3 0-0.8 10 ^3/uL Basophils # (Auto) 0.1 0-0.2 10 ^3/uL Nucleated Red Blood Cells 0.3 % Prothrombin Time 11.0 9.3-11.8 sec Prothrombin Time INR 1.04 0.9-1.15 Activated Partial Thromboplast Time 27.6 24.5-34.5 SEC Sodium Level 139 136-145 mmol/L Potassium Level 3.5 3.5-5.1 mmol/L Chloride Level 97 L 98-107 mmol/L Carbon Dioxide Level 29 20-31 mmol/L Anion Gap 13 5-15 Blood Urea Nitrogen 6 L 9-23 mg/dL Creatinine 0.85 0.700-1.30 mg/dL Glomerular Filtration Rate Calc 95 >90 mL/min BUN/Creatinine Ratio 7.1 L 10.0-20.0 Serum Glucose 156 H 74-106 mg/dL Calcium Level 10.3 8.7-10.4 mg/dL Examination: GENERAL:Normal, HEENT:Normal, NECK:Normal, LUNGS:Abnormal (Patient require supplemental oxygen), CVS:Abnormal (Extensive cardiovascular history), ABDOMEN:Abnormal, MSK:Abnormal (Back pain), SKIN:Normal, NEURO:Abnormal (Patient has a 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 Cardiac consult was requested and findings are: Patient seen and examined by Dr. Fontanez. Revised cardiac risk index (Felix criteria): 5.0% risk of , [place], or cardiac arrest. Patient has underlying history of congestive heart failure without acute decompensation, coronary artery disease without active anginal symptoms, and has a very limited functional capacity secondary to spine fracture. Per Cardiology standpoint, the patient is at a moderate-risk for moderate-risk surgery. Recommendations include dual-antiplatelet therapy with ASA and Plavix uninterrupted for at least three months otherwise the patient will be at a high-risk for in-stent thrombosis and/or re-stenosis. With the recommendation for duel-antiplatelet therapy it is no longer suitable to progress with the kyphoplasty. The patient will be at a higher risk for bleeding, spinal hematoma, which is particularly concerning in spinal procedures. This is because both bleeding and life-threatening stent thrombosis are risks depending on whether DAPT is continued or stopped. Further care and workup per admitting team's discretion Pain management and muscle relaxers to relieve pain TLSO brace for ambulation and mobility- patient has a device at home Recommend Pain medication adjustment to Dilaudid tablets 2 mg Q 6 hours for pain Muscle relaxer: Robaxin PCP we recommend a referral to Rheumatology to start treatment to improve the patient's bone health. Nonhealing compression fracture. Physical therapy evaluation and treatment recommendations for discharge planning No barriers to discharge from a spine surgery perspective- Call with questions Jm Gong [facility] Orthopaedic Spine Surgery nurse practitioner For Dr Aamir Monteiro Office Patient was examined, chart reviewed, labs evaluated, and diagnostic studies and findings analyzed. Case was discussed with Dr. Wilner Monteiro who formulated the plan of care. This medical document was created using an electronic medical record system with expresscoin dictation system. Although this document has been carefully reviewed, there might still be some phonetic and typographical errors. These areas are purely typographical due to imperfections of the software programs, and do not reflect any compromise in the patient's medical care. Plan discussed with Plan discussed with: Patient, Other (Bedside RN) Visit Coding Surgery Date of Service if different f: Jul 19, 2025 Billing Provider: ETHAN GONG NP Surgery Visit Codes: [id number] - INP CONSULT <55 MIN ETHAN GONG NP Jul 19, 2025 13:05
[2025-07-19] MEDS ORDERED: METHOCARBAMOL 500 MG TAB PO PRN (14:45)
[2025-07-19] MEDS ORDERED: ATOR20TA50 PO (14:50)
[2025-07-19] MEDS ORDERED: SENN-105 PO (14:50)
[2025-07-19] MEDS ORDERED: METH-1181 PO (14:50)
[2025-07-19] MEDS ORDERED: NALO4SPR2 (14:50)
[2025-07-19] MEDS ORDERED: OXYC-900 PO (14:50)
[2025-07-19] MEDS ORDERED: GABA-1250 PO (14:50)
[2025-07-19] MEDS: CLOPIDOGREL BISULFATE 75 MG TAB PO ONE (14:55)
--- NOTE | 2025-07-19 14:55 | DVHDS2 ---
Discharge Summary Date of Admission Jul 18, 2025 at 17:22 Date of Discharge: Jul 19, 2025 Labs/Diagnostic Data: Laboratory Results Test 07/19/25 12:24 07/19/25 11:45 07/18/25 09:59 07/18/25 09:48 POC Glucose 141 mg/dl (70-106) Hemoglobin A1c 6.4 % A1C (<5.7) Magnesium Level 2.0 mg/dL (1.6-2.6) Triglycerides Level 177 mg/dL (< 150) Cholesterol Level 138 mg/dL (< 200) LDL Cholesterol 85 mg/dL (< 100) HDL Cholesterol 34 mg/dL (40-59) Thyroid Stimulating Hormone (TSH) 1.28 uIU/mL (0.55-4.78) Urine Color Yellow (Yellow) Urine Clarity Clear (Clear) Urine pH 6.0 (5.0-9.0) Urine Specific [place] 1.012 (1.001-1.035) Urine Protein Negative (Negative) Urine Ketones Negative (Negative) Urine Blood Negative /uL (Negative) Urine Nitrite Negative (Negative) Urine Bilirubin Negative (Negative) Urine Urobilinogen Normal mg/dL (Negative) Urine Leukocyte Esterase Negative /uL (Negative) Urine RBC 1 /hpf (0 - 3) Urine Microscopic WBC 2 /HPF (0-3) Urine Squamous Epithelial Cells None seen /hpf (<5) Urine Bacteria None seen /hpf (None Seen) Urine Mucus Few (None Seen) Urine Glucose Normal mg/dL (Normal) White Blood Count 10.4 10^3/uL (4.4-10.8) Red Blood Count 5.22 10^6/uL (4.5-5.90) Hemoglobin 16.6 g/dL (13.5-17.5) Hematocrit 49.2 % (41.0-53.0) Mean Corpuscular Volume 94.2 fL (80.0-100.0) Mean Corpuscular Hemoglobin 31.8 pg (28.0-32.0) Mean Corpuscular Hemoglobin Concent 33.8 g/dL (32.0-36.0) Red Cell Distribution Width 16.7 % (11.8-14.3) Platelet Count 260 10^3/uL (140-450) Mean Platelet Volume 8.4 fL (6.9-10.8) Neutrophils (%) (Auto) 76.4 % (37.0-80.0) Lymphocytes (%) (Auto) 12.5 % (10.0-50.0) Monocytes (%) (Auto) 7.9 % (0.0-12.0) Eosinophils (%) (Auto) 2.7 % (0.0-7.0) Basophils (%) (Auto) 0.5 % (0.0-2.0) Neutrophils # (Auto) 8.0 10 ^3/uL (1.6-8.6) Lymphocytes # (Auto) 1.3 10 ^3/uL (0.4-5.4) Monocytes # (Auto) 0.8 10 ^3/uL (0-1.3) Eosinophils # (Auto) 0.3 10 ^3/uL (0-0.8) Basophils # (Auto) 0.1 10 ^3/uL (0-0.2) Nucleated Red Blood Cells 0.3 % Prothrombin Time 11.0 sec (9.3-11.8) Prothrombin Time INR 1.04 (0.9-1.15) Activated Partial Thromboplast Time 27.6 SEC (24.5-34.5) Sodium Level 139 mmol/L (136-145) Potassium Level 3.5 mmol/L (3.5-5.1) Chloride Level 97 mmol/L (98-107) Carbon Dioxide Level 29 mmol/L (20-31) Anion Gap 13 (5-15) Blood Urea Nitrogen 6 mg/dL (9-23) Creatinine 0.85 mg/dL (0.700-1.30) Glomerular Filtration Rate Calc 95 mL/min (>90) BUN/Creatinine Ratio 7.1 (10.0-20.0) Serum Glucose 156 mg/dL (74-106) Calcium Level 10.3 mg/dL (8.7-10.4) Other Laboratory Tests 07/18/25 09:48 Brief Hx & Hospital Course: 70-year-old male with past medical history of lumbar spine stenosis, chronic back pain, DM, hypertension, CAD s/p PCI with stent to LAD(06/29/2025), CHF, multiple myeloma under treatment presents with complaints of chronic back pain. Patient endorses pain has been debilitating. also endorsing chronic numbness and tingling to bilateral lower extremities. States he was sent in by Dr. Monteiro for scheduled surgery on July 19, 2025. This time there are no complaints of fevers, chills, shortness of breath, chest pain, palpitations, nausea, vomiting dysuria, incontinence. He is admitted and evaluated by spine surgery and cardiac his. Given patient recently had a stent and he has been on dual antiplatelet therapy with aspirin and Plavix spine surgeon recommended to wait for low back pain surgery given there is no emergency at present. This is discussed with the patient by spine surgeon and he verbalized understanding and given no further surgery is being done he has been discharged home in stable condition. However given his pain spine surgeon recommended outpatient pain management and pain medications. These were prescribed and the risks including respiratory distress drowsiness and constipation from narcotics discussed with the patient. Patient received lactulose and Narcan as well. He is advised not to drive while he is taking narcotics. He is advised to have close follow up with his dermatologist managing partner and spine surgeon in 2-3 weeks for further evaluation management. Patient to follow up with the PCP and referral to pain management physician as well if his pain is not adequately controlled. Patient verbalized understanding his hospital diagnosis, treatment he received, discharge medications including side effects, discharge instructions and agree with the follow up plan of care as outlined. Consults/Reason for consult Problems: (1) L5 vertebral fracture Assessment and Plan L5 compression fracture not healing Patient admitted to the hospital, initially thought to be a candidate for surgical kyphoplasty. Cardiac consult was requested and findings are: Patient seen and examined by Dr. Fontanez. Revised cardiac risk index (Felix criteria): 5.0% risk of , [place], or cardiac arrest. Patient has underlying history of congestive heart failure without acute decompensation, coronary artery disease without active anginal symptoms, and has a very limited functional capacity secondary to spine fracture. Per Cardiology standpoint, the patient is at a moderate-risk for moderate-risk surgery. Recommendations include dual-antiplatelet therapy with ASA and Plavix uninterrupted for at least three months otherwise the patient will be at a high-risk for in-stent thrombosis and/or re-stenosis. With the recommendation for duel-antiplatelet therapy it is no longer suitable to progress with the kyphoplasty. The patient will be at a higher risk for bleeding, spinal hematoma, which is particularly concerning in spinal procedures. This is because both bleeding and life-threatening stent thrombosis are risks depending on whether DAPT is continued or stopped. Further care and workup per admitting team's discretion Pain management and muscle relaxers to relieve pain TLSO brace for ambulation and mobility- patient has a device at home Recommend Pain medication adjustment to Dilaudid tablets 2 mg Q 6 hours for pain Muscle relaxer: Robaxin PCP we recommend a referral to Rheumatology to start treatment to improve the patient's bone health. Nonhealing compression fracture. Physical therapy evaluation and treatment recommendations for discharge planning No barriers to discharge from a spine surgery perspective- Call with [facility] nurse practitioner For Dr Aamir Monteiro Office Patient was examined, chart reviewed, labs evaluated, and diagnostic studies and findings analyzed. Case was discussed with Dr. Wilner Monteiro who formulated the plan of care. This medical document was created using an electronic medical record system with [employer] dictation system. Although this document has been carefully reviewed, there might still be some phonetic and typographical errors. These areas are purely typographical due to imperfections of the software programs, and do not reflect any compromise in the patient's medical care. Plan discussed with Plan discussed with: Patient, Other (Bedside RN) Condition at Discharge: Stable Final Diagnosis/Problems List chronic L spine stenosis with compression fractures, osteopenia, chronic back pain Discharge Disposition: Home Discharge Instruct/Medications Diet: Consistent carbohydrate, Cardiac 2g Na,low cholest Activity: No Restrictions, As Tolerated Activity comment: with walker Follow Up/Referral: PCP next week for referral to [facility] for management of osteoporosis/fractures. Pain management doctor 2-3 weeks. Medications: as prescribed and home meds per discharge list. Scheduled Aspirin (Aspir-Low), 81 MG PO DAILY, (Reported) Atorvastatin Calcium (Atorvastatin Calcium), 40 MG PO HS Calcium Carbonate-Cholecalcife (Os-Kenny Extra D3 500-15 mg-Mcg), 1 TAB PO TIDWM Clopidogrel Bisulfate (Plavix), 1 TAB PO DAILY, (Reported) Furosemide (Furosemide), 40 MG PO DAILY, (Reported) Gabapentin (Gabapentin), 300 MG PO TID Metformin Hydrochloride (Metformin Hcl), 500 MG PO DAILY, (Reported) Methocarbamol (Methocarbamol), 500 MG PO TID Metoprolol Succinate (Metoprolol Succinate Er), 20 MG PO DAILY, (Reported) Potassium Chloride (Potassium Chloride Cr), 20 MEQ PO DAILY, (Reported) Senna (Senna), 8.6 MG PO HS Scheduled PRN Naloxone HCl (Narcan), 4 MG NA Q5MINP PRN Oxycodone HCl (Oxycodone Hydrochloride), 5 MG PO Q6HPRN PRN Miscellaneous Medications Ergocalciferol (Vitamin D2), 50,000 UNIT PO, (Reported) Discharge Statement: "Patient was advised to return to the ER or call 911 if any headaches, dizziness, shortness of breath, chest pain, abdominal pain, bleeding, fevers, or worsening of medical condition. Patient was counseled about treatment plan, medications, possible side effects, patientverbalized understanding. All questions were answered to the best of my ability. This discharge took greater then 30 minutes in planning, reviewing documentation, counseling the patient, and discussing with other team members." ASSESSMENT ASSESSMENT Assessment chronic L spine stenosis with compression fractures, osteopenia, chronic back pain GARY ZIMMER MD Jul 19, 2025 14:55
[2025-07-19] MEDS ORDERED: CALCTAB11 PO (14:57)
[2025-07-19] MEDS ORDERED: ATORVASTATIN 20 MG TAB PO SCH (22:00)
[2025-07-20] MEDS ORDERED: CLOPIDOGREL BISULFATE 75 MG TAB PO SCH (10:00)
== END 2025-07-19 18:20 | disposition home or self-care (01) | DRG 552 ==
LOC: ER 09:14 → OVERFLOW 17:22 → TELE-WESTW 21:20
PROVIDERS: ADMIT Hospitalist; ATTEND Hospitalist
DX: M48.061 Spinal stenosis, lumbar region without neurogenic claudication (principal); I50.32 Chronic diastolic (congestive) heart failure; J96.11 Chronic respiratory failure with hypoxia; I11.0 Hypertensive heart disease with heart failure; E11.9 Type 2 diabetes mellitus without complications; E66.9 Obesity, unspecified; J44.9 Chronic obstructive pulmonary disease, unspecified; M48.56XA Collapsed vertebra, not elsewhere classified, lumbar region, initial encounter for fracture; I25.10 Atherosclerotic heart disease of native coronary artery without angina pectoris; E78.5 Hyperlipidemia, unspecified; G89.29 Other chronic pain; M85.88 Other specified disorders of bone density and structure, other site; Z79.82 Long term (current) use of aspirin; Z87.891 Personal history of nicotine dependence; Z79.84 Long term (current) use of oral hypoglycemic drugs; Z83.3 Family history of diabetes mellitus; Z80.42 Family history of malignant neoplasm of prostate; Z95.5 Presence of coronary angioplasty implant and graft; Z68.36 Body mass index [BMI] 36.0-36.9, adult
CPT/HCPCS: 36415; 71045; 80048; 80061; 81001; 82962; 83036; 83735; 84443; 85025; 85610; 85730; G0378; J2405